=== PATIENT | male | born 1960 | race Caucasian/White ===

== ENCOUNTER 2017-01-02 20:12 | Emergency (ER) | payer MEDICARE, MEDICAID ==
--- NOTE | 2017-01-02 21:06 | RAD ---
INDICATION: Head injury. COMPARISON: Comparison is made with a prior CT of the brain from December 27, 2015. TECHNIQUE: Contiguous axial sections of the brain were obtained from the skull base to the vertex without contrast. FINDINGS: The ventricles, cisterns and sulci are enlarged consistent with diffuse atrophy. No significant focal abnormality or mass effect is seen. There is no evidence for hemorrhage. There is soft tissue swelling present in the scalp posterior to the left parietal bone. No fracture is seen. The visualized portion of the paranasal sinuses and mastoid air cells appear clear. IMPRESSION: NO EVIDENCE FOR ACUTE INTRACRANIAL ABNORMALITY.
--- NOTE | 2017-01-02 21:17 | RAD ---
INDICATION: Head injury. COMPARISON: Comparison is made with a prior CT of the cervical spine from December 27, 2015. TECHNIQUE: Contiguous axial sections were obtained from the skull base through the T1 vertebra. Images were reconstructed in the sagittal and coronal planes. FINDINGS: The vertebra are in normal alignment. No prevertebral soft tissue swelling or fracture is seen. At the C5-C6 level there is [id number] posterior uncinate process spurring associated with a broad-based disc bulge which causes mild spinal canal narrowing. There is mild bilateral neural foraminal narrowing. At the C6-C7 level there is moderate posterior uncinate process spurring causing mild to moderate spinal canal narrowing. IMPRESSION: 1. NO EVIDENCE FOR FRACTURE OR SUBLUXATION. 2. MODERATE CERVICAL SPONDYLOSIS AT THE C5-C6 AND C6-C7 LEVELS.
--- NOTE | 2017-01-02 22:44 | ED ---
Jennifer Ross Erika, scribed for Derrick Michelle MD on 01/02/17 at 2109 . Head Injury - HPI Summary HPI Summary: Patient is a 56-year-old male presenting to the ED with a CC of head injury. 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 Today, he fell from the wheelchair and hit his posterior head. [facility] staff reports there was no LOC. He reports he was dizzy after hitting his head, but this has resolved. He states headache has been improving. EMS does note swelling to the posterior head as well with bleeding. Patient denies neck and extremity pain. Hx borderline MR, CVA. - History Of Current Complaint Chief Complaint: EDHeadInjury Stated Complaint: FALL/HEAD LAC Time Seen by Provider: 01/02/17 20:19 Hx Obtained From: Patient, Medical Records Mechanism Of Injury: Fall From Height Of: - in a wheelchair Onset/Duration: Started Hours Ago, Traumatic, Still Present Pain Intensity: 0 Pain Scale Used: 0-10 Numeric Location of Head Injury: Occipital Associated Signs And Symptoms: Swelling - occiput, Other: - dizziness after the fall - Allergies/Home Medications Allergies/Adverse Reactions: Allergies Allergy/AdvReac Type Severity Reaction Status Date / Time Clindamycin Allergy Intermediate Unknown Verified 06/04/16 12:26 Reaction Details Penicillins Allergy Unknown Verified 06/04/16 12:26 Reaction Details PMH/Surg Hx/FS Hx/Imm Hx Endocrine/Hematology History: Reports: Hx Anticoagulant Therapy, Hx Diabetes Denies: Hx Thyroid Disease Cardiovascular History: Reports: Hx Coronary Artery Disease, Hx Hypercholesterolemia, Hx Hypertension, Other Cardiovascular Problems/Disorders - HYPERTENSION/CAD Denies: Hx Congestive Heart Failure, Hx Pacemaker/ICD Respiratory History: Denies: Hx Asthma, Hx Chronic Obstructive Pulmonary Disease (COPD), Other Respiratory Problems/Disorders - DENIES GI History: Reports: Hx Gastroesophageal Reflux Disease History: Denies: Hx Renal Disease Musculoskeletal History: Reports: Hx Back Problems Neurological History: Denies: Hx Dementia, Hx Seizures Psychiatric History: Reports: Hx Anxiety, Hx Depression, Hx of Violent Episodes Against Others Denies: Hx Panic Disorder, Hx Substance Abuse - Cancer History Cancer Type, Location and Year: COLON - Surgical History Surgery Procedure, Year, and Place: pt declared colon cancer and something on heart, appears to have port scar, dates are unclear, denies anything other than that Infectious Disease History: Denies: Hx Hepatitis, Hx Human Immunodeficiency Virus (HIV), Traveled Outside the [place] in Last 30 Days - Family History Known Family History: Positive: Respiratory Disease - pneumonia - Social History Lives: [facility] Alcohol Use: None Substance Use Type: Reports: None Hx Tobacco Use: Yes Smoking Status (MU): Former Smoker Review of Systems Musculoskeletal: Other - Paraplegic Negative: Arthralgia, Myalgia Skin: Other - swelling to posterior head with bleeding Neurological: Other - dizziness Positive: Headache All Other Systems Reviewed And Are Negative: Yes Physical Exam Triage Information Reviewed: Yes Vital Signs On Initial Exam: Initial Vitals Temp Pulse Resp BP Pulse Ox 98.4 F 91 14 172/80 95 01/02/17 20:14 01/02/17 20:14 01/02/17 20:14 01/02/17 20:14 01/02/17 20:14 Vital Signs Reviewed: Yes Appearance: Positive: Well-Appearing, No Pain Distress Skin: Positive: Warm, Skin Color Reflects Adequate Perfusion, Dry Head/Face: Positive: Other - Occiput swelling with some blood - appears to be a contusion Eyes: Positive: EOMI, JACKIE - 4 mm and reactive ENT: Positive: Normal ENT inspection, TMs normal Neck: Positive: Supple, Nontender Respiratory/Lung Sounds: Positive: Clear to Auscultation, Breath Sounds Present Cardiovascular: Positive: RRR Abdomen Description: Positive: Nontender, Soft Bowel Sounds: Positive: Present Musculoskeletal: Positive: Other - Movements of arms classically consistent with cerebellar ataxia. Pt does not move legs Neurological: Positive: Alert, Oriented to Person Place, Time, Other - Movements of arms classically consistent with cerebellar ataxia. Pt does not move legs Psychiatric: Positive: Affect/Mood Appropriate - [place] Coma Scale Best Eye Response: 4 - Spontaneous Best Motor Response: 6 - Obeys Commands Best Verbal Response: 5 - Oriented [place] Coma Scale Comments: Because of the cerebellar ataxia, it is difficult to determine if there is any new neurological deficit, so Head CT ordered. Diagnostics - Vital Signs Vital Signs Temp Pulse Resp BP Pulse Ox 01/02/17 20:14 98.4 F 91 14 172/80 95 - Laboratory Lab Statement: Any lab studies that have been ordered have been reviewed, and results considered in the medical decision making process. - CT Brain CT CT Interpretation Completed By: Radiologist - IMPRESSION: NO EVIDENCE FOR ACUTE INTRACRANIAL ABNORMALITY. CT C Spine CT Interpretation Completed By: Radiologist - IMPRESSION: 1. NO EVIDENCE FOR FRACTURE OR SUBLUXATION. 2. MODERATE CERVICAL SPONDYLOSIS AT THE C5-C6 AND C6- C7 LEVELS. Re-Evaluation - Re-Evaluation First Eval Re-Evaluation Time: 22:41 Change: Improved Comment: Discussed CT results with patient. Patient would like to be discharged Head Injury Course/Dx Course Of Treatment: NO CRITICAL CARE TIME Assessment/Plan: DISCUSSED RESULTS WITH PATIENT. WELL IN ED. DISCHARGE HOME STABLE. - Diagnoses Provider Diagnoses: Head injury, Scalp abrasion Discharge - Discharge Plan Condition: Stable Disposition: HOME Patient Education Materials: Head Injury (ED), Abrasion (ED) Referrals: Néstor Mitchell MD [Primary Care Provider] - Additional Instructions: FOLLOW UP WITH YOUR DOCTOR. RETURN TO THE EMERGENCY DEPARTMENT FOR ANY WORSENING OF YOUR CONDITION OR QUESTIONS OR CONCERNS. The documentation as recorded by the Jennifer pedroza Erika accurately reflects the service I personally performed and the decisions made by me, Derrick Michelle MD.
[2017-01-03 02:09] VITALS: BP 170/82
== END 2017-01-03 02:00 | disposition home or self-care (01) ==
LOC: ED 20:12
DX: S09.90XA Unspecified injury of head, initial encounter (principal); S00.01XA Abrasion of scalp, initial encounter; R51 Headache; R42 Dizziness and giddiness; Z87.891 Personal history of nicotine dependence; Y93.9 Activity, unspecified; Y92.9 Unspecified place or not applicable; Y99.9 Unspecified external cause status; W05.0XXA Fall from non-moving wheelchair, initial encounter
CPT/HCPCS: 70450; 72125; 99283

== ENCOUNTER 2017-07-05 22:25 | Emergency (ER) | payer MEDICARE, MEDICAID ==
[2017-07-05] MEDS ORDERED: NS 0.9% 1000 ML* 1,000 ML IV ONE (23:06)
[2017-07-05] MEDS ORDERED: Ondansetron INJ* 2 MG/ML VIAL IV ONE (23:06)
[2017-07-06 00:15] LABS: ALT 6 U/L (7-52); AST 11 U/L (13-39); Albumin 3.5 g/dL (3.2-5.2); Alkaline Phosphatase 68 U/L (34-104); Anion Gap 6 mmol/L (2-11); BUN/Creatinine Ratio 16.9 (8-20); Blood Urea Nitrogen 25 mg/dL (6-24); CO2 Carbon Dioxide 25 mmol/L (22-32); Calcium 8.8 mg/dL (8.6-10.3); Chloride 101 mmol/L (101-111); EGFR African American 62.8 (>60); EGFR Non-African American 48.8 (>60); Globulin 3.3 g/dL (2-4); Glucose 119 mg/dL (70-100); Lipase < 10 U/L (11.0-82.0); Potassium 4.4 mmol/L (3.5-5.0); Sodium 132 mmol/L (133-145); Total Protein 6.8 g/dL (6.4-8.9)
[2017-07-06 00:16] LABS: Troponin I 0.03 ng/mL (<0.04)
[2017-07-06 00:48] LABS: Hematocrit 34 % (42-52); Hemoglobin 11.5 g/dl (14.0-18.0); Mean Corpuscular HGB Conc 34 g/dl (31-36); Mean Corpuscular Hemoglobin 27 pg (27-31); Mean Corpuscular Volume 79 fL (80-94); Mean Platelet Volume 6 um3 (7.4-10.4); Red Blood Count 4.28 10^6/ul (4.0-5.4); Red Cell Distribution Width 17 % (10.5-15); White Blood Count 8.6 10^3/ul (3.5-10.8)
[2017-07-06] MEDS ORDERED: Iodixanol* (CONTRAST) 320 MG/ML 100 ML SDV IV ONE (01:40)
[2017-07-06 04:42] LABS: Urine Bacteria Absent (Absent); Urine Bilirubin Negative (Negative); Urine Glucose Negative (Negative); Urine Nitrite Negative (Negative)
--- NOTE | 2017-07-06 05:59 | ED ---
Abib Ross Abhishek, scribed for Shailesh Benitez on 07/06/17 at 0445 . Neurological HPI - HPI Summary HPI Summary: This patient is a 56 year old M BIBA with a chief complaint of CVA since few hours ago. The CC is described as constant. The patient rates the pain 8/10 in severity. Symptoms aggravated by nothing. Symptoms alleviated by nothing. Pt prior to ED physician stated yesterday he began feeling nauseated and vomited 3 times, states vomited once today. Patient reports right lower abd pain, vomiting, nausea. Patient denies CP. SHx negative smoking. - History of Current Complaint Chief Complaint: EDAbdPain Stated Complaint: ABD PAIN Time Seen by Provider: 07/05/17 22:46 Pain Intensity: 8 - Allergy/Home Medications Allergies/Adverse Reactions: Allergies Allergy/AdvReac Type Severity Reaction Status Date / Time Clindamycin Allergy Intermediate Unknown Verified 06/04/16 12:26 Reaction Details Penicillins Allergy Unknown Verified 06/04/16 12:26 Reaction Details PMH/Surg Hx/FS Hx/Imm Hx Endocrine/Hematology History: Reports: Hx Anticoagulant Therapy, Hx Diabetes Denies: Hx Thyroid Disease Cardiovascular History: Reports: Hx Coronary Artery Disease, Hx Hypercholesterolemia, Hx Hypertension, Other Cardiovascular Problems/Disorders - HYPERTENSION/CAD Denies: Hx Congestive Heart Failure, Hx Pacemaker/ICD Respiratory History: Denies: Hx Asthma, Hx Chronic Obstructive Pulmonary Disease (COPD), Other Respiratory Problems/Disorders - DENIES GI History: Reports: Hx Gastroesophageal Reflux Disease History: Denies: Hx Dialysis, Hx Renal Disease Musculoskeletal History: Reports: Hx Back Problems Neurological History: Denies: Hx Dementia, Hx Seizures Psychiatric History: Reports: Hx Anxiety, Hx Depression, Hx of Violent Episodes Against Others Denies: Hx Panic Disorder, Hx Substance Abuse - Cancer History Cancer Type, Location and Year: COLON - Surgical History Surgery Procedure, Year, and Place: pt declared colon cancer and something on heart, appears to have port scar, dates are unclear, denies anything other than that Infectious Disease History: No Infectious Disease History: Denies: Hx Hepatitis, Hx Human Immunodeficiency Virus (HIV), Traveled Outside the [place] in Last 30 Days - Family History Known Family History: Positive: Respiratory Disease - pneumonia - Social History Alcohol Use: None Substance Use Type: Reports: None Hx Tobacco Use: Yes Smoking Status (MU): Former Smoker Review of Systems Constitutional: Negative Eyes: Negative ENT: Negative Negative: Chest Pain Respiratory: Negative Positive: Abdominal Pain - right lower abd pain, Vomiting - 3 times, Nausea Genitourinary: Negative Musculoskeletal: Negative Skin: Negative Neurological: Negative Psychological: Normal All Other Systems Reviewed And Are Negative: Yes Physical Exam - Summary Physical Exam Summary: Appearance: Well appearing, no pain distress Skin: warm, dry, reflects adequate perfusion Head/face: normal Eyes: EOMI, JACKIE ENT: Dry mucous membranes, Neck: supple, nontender Respiratory: CTA, breath sounds present Cardiovascular: RRR, pulses symmetrical Abdomen: Diffuse tenderness abd Bowel: present Musculoskeletal: Extremities contract Neuro: paraplegic Triage Information Reviewed: Yes Vital Signs On Initial Exam: Initial Vitals BP 148/75 07/05/17 22:33 Vital Signs Reviewed: Yes - Bear Coma Scale Coma Scale Total: 15 Diagnostics - Vital Signs Vital Signs Temp Pulse Resp BP Pulse Ox 07/06/17 04:01 75 95 07/06/17 04:00 172/77 07/06/17 03:58 67 93 07/06/17 03:30 71 173/72 89 07/06/17 03:27 74 157/67 97 07/06/17 03:00 16 159/135 07/06/17 02:56 65 21 149/80 95 07/06/17 02:12 75 22 96 07/06/17 01:30 22 123/53 07/06/17 01:00 19 140/62 07/06/17 00:30 22 149/69 07/06/17 00:01 66 23 155/74 96 07/06/17 00:00 69 22 97 07/05/17 23:30 69 17 159/70 96 07/05/17 23:00 72 19 155/82 96 07/05/17 22:38 99.6 F 72 13 148/75 97 07/05/17 22:35 74 17 97 07/05/17 22:33 148/75 - Laboratory Lab Results: Lab Results 07/05/17 07/05/17 07/05/17 Range/Units 23:46 23:46 23:46 WBC 8.6 (3.5-10.8) 10^3/ul RBC 4.28 (4.0-5.4) 10^6/ul Hgb 11.5 L (14.0-18.0) g/dl Hct 34 L (42-52) % MCV 79 L (80-94) fL MCH 27 (27-31) pg MCHC 34 (31-36) g/dl RDW 17 H (10.5-15) % Plt Count 152 (150-450) 10^3/ul MPV 6 L (7.4-10.4) um3 Neut % (Auto) 84.3 H (38-83) % Lymph % (Auto) 7.6 L (25-47) % [place] % (Auto) 7.0 (1-9) % Eos % (Auto) 0.6 (0-6) % Baso % (Auto) 0.5 (0-2) % Absolute Neuts (auto) 7.2 (1.5-7.7) 10^3/ul Absolute Lymphs (auto) 0.6 L (1.0-4.8) 10^3/ul Absolute Monos (auto) 0.6 (0-0.8) 10^3/ul Absolute Eos (auto) 0.1 (0-0.6) 10^3/ul Absolute Basos (auto) 0 (0-0.2) 10^3/ul Absolute Nucleated RBC 0 10^3/ul Nucleated RBC % 0 INR (Anticoag Therapy) 1.01 (0.89-1.11) APTT 31.9 (26.0-36.3) seconds Sodium 132 L (133-145) mmol/L Potassium 4.4 (3.5-5.0) mmol/L Chloride 101 (101-111) mmol/L Carbon Dioxide 25 (22-32) mmol/L Anion Gap 6 (2-11) mmol/L BUN 25 H (6-24) mg/dL Creatinine 1.48 H (0.67-1.17) mg/dL Est GFR ( Amer) 62.8 (>60) Est GFR (Non-Af Amer) 48.8 (>60) BUN/Creatinine Ratio 16.9 (8-20) Glucose 119 H (70-100) mg/dL Lactic Acid (0.5-2.0) mmol/L Calcium 8.8 (8.6-10.3) mg/dL Total Bilirubin 0.50 (0.2-1.0) mg/dL AST 11 L (13-39) U/L ALT 6 L (7-52) U/L Alkaline Phosphatase 68 (34-104) U/L Troponin I 0.03 (<0.04) ng/mL Total Protein 6.8 (6.4-8.9) g/dL Albumin 3.5 (3.2-5.2) g/dL Globulin 3.3 (2-4) g/dL Albumin/Globulin Ratio 1.1 (1-3) Lipase < 10 L (11.0-82.0) U/L 07/05/17 Range/Units 23:46 WBC (3.5-10.8) 10^3/ul RBC (4.0-5.4) 10^6/ul Hgb (14.0-18.0) g/dl Hct (42-52) % MCV (80-94) fL MCH (27-31) pg MCHC (31-36) g/dl RDW (10.5-15) % Plt Count (150-450) 10^3/ul MPV (7.4-10.4) um3 Neut % (Auto) (38-83) % Lymph % (Auto) (25-47) % [place] % (Auto) (1-9) % Eos % (Auto) (0-6) % Baso % (Auto) (0-2) % Absolute Neuts (auto) (1.5-7.7) 10^3/ul Absolute Lymphs (auto) (1.0-4.8) 10^3/ul Absolute Monos (auto) (0-0.8) 10^3/ul Absolute Eos (auto) (0-0.6) 10^3/ul Absolute Basos (auto) (0-0.2) 10^3/ul Absolute Nucleated RBC 10^3/ul Nucleated RBC % INR (Anticoag Therapy) (0.89-1.11) APTT (26.0-36.3) seconds Sodium (133-145) mmol/L Potassium (3.5-5.0) mmol/L Chloride (101-111) mmol/L Carbon Dioxide (22-32) mmol/L Anion Gap (2-11) mmol/L BUN (6-24) mg/dL Creatinine (0.67-1.17) mg/dL Est GFR ( Amer) (>60) Est GFR (Non-Af Amer) (>60) BUN/Creatinine Ratio (8-20) Glucose (70-100) mg/dL Lactic Acid 1.4 (0.5-2.0) mmol/L Calcium (8.6-10.3) mg/dL Total Bilirubin (0.2-1.0) mg/dL AST (13-39) U/L ALT (7-52) U/L Alkaline Phosphatase (34-104) U/L Troponin I (<0.04) ng/mL Total Protein (6.4-8.9) g/dL Albumin (3.2-5.2) g/dL Globulin (2-4) g/dL Albumin/Globulin Ratio (1-3) Lipase (11.0-82.0) U/L Result Diagrams: 07/05/17 23:46 07/05/17 23:46 Lab Statement: Any lab studies that have been ordered have been reviewed, and results considered in the medical decision making process. - Radiology Chest X-ray Radiology Interpretation Completed By: ED Physician - CXR reveals negative findings - CT CT A/P CT Interpretation Completed By: Radiologist - CT A/P reveals Obstructive uropathy of the left. Right renal atrophy. Correlation with renal function is recommended. Splenomegaly possibly related to inflammation. Correlation with history and exam is recommended. ED physician has reviewed this radiology report and agrees. - EKG 3107 EKG Interpretation: An EKG reveals sinus rhythm with LBBB Course/Dx - Course Course Of Treatment: This patient is a 56 year old M presenting to [facility] with a chief complaint of CVA since few hours ago. Patient reports abd pain, vomiting, nausea. Patient denies CP. An EKG reveals sinus rhythm with LBBB. CXR reveals negative. CT A/P reveals Obstructive uropathy of the left. Right renal atrophy. Correlation with renal function is recommended. Splenomegaly possibly related to inflammation. Correlation with history and exam is recommended. We discussed patient care with Dr. Stevens and Dr. Segal and they recommended for transfer. Patient [facility] be [facility]. Pt is agreeable with this plan. - Differential Dx Differential Diagnoses Neuro: Positive: Other - diverticulitis/uti/appendicitis/ colitis - Diagnoses Provider Diagnoses: Paraplegia, Neoplasm of colon, malignant, Renal calculus Discharge - Discharge Plan Condition: Stable Disposition: TRANS HIGHER LVL OF CARE FAC The documentation as recorded by the Abbi pedroza Abhishek accurately reflects the service I personally performed and the decisions made by , Shailesh Benitez.
--- NOTE | 2017-07-06 07:41 | RAD ---
HISTORY: Vomiting COMPARISONS: May 28 VIEWS: 1: frontal portable view of the chest at 11:27 PM FINDINGS: LINES AND TUBES: None. CARDIOMEDIASTINAL SILHOUETTE: The cardiomediastinal silhouette is normal for portable technique. PLEURA: The costophrenic angles are sharp. No pleural abnormalities are noted. LUNG PARENCHYMA: The lungs are clear. ABDOMEN: The upper abdomen is clear. There is no subphrenic gas. BONES AND SOFT TISSUES: No bone or soft tissue abnormalities are noted. IMPRESSION: NO ACTIVE CARDIOPULMONARY DISEASE.
--- NOTE | 2017-07-06 08:04 | RAD ---
CLINICAL HISTORY: Abdominal pain, right and left quadrant tenderness COMPARISON: None TECHNIQUE: Multiple contiguous axial CT scans were obtained of the abdomen and pelvis after the administration of intravenous contrast. Coronal and sagittal multiplanar reformations are submitted for review. Oral contrast was not administered. Delayed images were obtained through the abdomen and pelvis. FINDINGS: LUNG BASES: The lung bases are clear. LIVER: The liver is homogeneously enlarged measuring 22 cm. BILE DUCTS: There is no intrahepatic or extrahepatic biliary dilatation. GALLBLADDER: The gallbladder is normal, without pericholecystic inflammatory change. PANCREAS: The pancreas is normal, without mass or ductal dilatation. SPLEEN: The spleen is homogeneously enlarged measuring 19 centers. UPPER GI TRACT: Evaluation of the gastrointestinal tract is limited by incomplete gastric distention. The upper GI tract is unremarkable. SMALL BOWEL AND MESENTERY: The small bowel is normal in contour, course, and caliber. There is no obstruction or dilatation. COLON: The colon is normal in contour, course, caliber. There is no pericolonic inflammatory change. ADRENALS: Normal bilaterally. KIDNEYS: The right kidney is atrophic. There is edema of the left kidney with perinephric stranding. There are multiple calculi of the left kidney measuring 1.3 cm left UPJ stone. There is mild pelviectasis. BLADDER: The bladder is smooth in contour. PELVIC ORGANS: The pelvic organs are not visualized. AORTA: The aorta is normal. IVC: Unremarkable LYMPH NODES: There is no lymphadenopathy by size criteria. ABDOMINAL WALL: There is no evidence for abdominal wall hernia. BONES AND SOFT TISSUES: There are mild diffuse degenerative changes. OTHER: None IMPRESSION: 1. HEPATOSPLENOMEGALY. 2. LEFT-SIDED NEPHROLITHIASIS INCLUDING A 1.3 CM LEFT UPJ STONE WITH LEFT-SIDED HYDRONEPHROSIS. 3. ATROPHIC RIGHT KIDNEY.
[2017-07-06 11:50] VITALS: BP 138/54
--- NOTE | 2017-07-09 09:03 | ED ---
I, Héctor Posey, scribed for Patrick Falcon MD on 07/06/17 at 0952 . Progress - Progress Note Progress Note: Pt signed out by Dr. Benitez pending transfer. Spoke with transfer center at [facility] at 09:40. I spoke to the school secretary (Jose ) at [facility] who reports the pt cannot be transferred because there are no beds even though the pt accepted for transfer earlier. The school secretary doesnt know for how long before a bed will appear for the pt. I asked if the pt can be transferred to the ER, however he reports the ER is having holds for about 8-9 patients. Therefore I insisted to speak with an ER attending and spoke with Dr. Barakat, and confirmed that there are a lot of holds but he cannot refuse the transfer and to make the pt aware that he might be waiting in the ED a long time before he gets a bed. Then I spoke with the supervisor gas meter repair, who reports the pt can be waiting in the ED up to 3 days before a bed. At this point I spoke with the pt, who states that he is more comfortable with pain medications. Pt has slurred speech but secondary to CVA. I asked him if the pt will be more comfortable going to another facility other than [facility], and the pt reports he wants to go to the closest facility, which is [facility]. The pt understands that he might be in a hallway waiting a couple of hours waiting to see a urologist or to have a bed. At 10:15 [facility] transfer center called back. After speaking with charge nurse, [facility] reports that they have a bed available and the pt can be transferred. At this point the pt is still alert and oriented, and hemodynamically stable. The pt does not have fever. He is pain free at this point. Course/Dx - Course Course Of Treatment: This patient is a 56 year old M presenting to [facility] with a chief complaint of CVA since few hours ago. Patient reports abd pain, vomiting, nausea. Patient denies CP. An EKG reveals sinus rhythm with LBBB. CXR reveals negative. CT A/P reveals Obstructive uropathy of the left. Right renal atrophy. Correlation with renal function is recommended. Splenomegaly possibly related to inflammation. Correlation with history and exam is recommended. We discussed patient care with Dr. Stevens and Dr. Segal and they recommended for transfer. Patient will be transferred to [facility]. Pt is agreeable with this plan. - Diagnoses Provider Diagnoses: Paraplegia, Neoplasm of colon, malignant, Renal calculus The documentation as recorded by the Taty pedroza Edward accurately reflects the service I personally performed and the decisions made by , Patrick Falcon MD.
== END 2017-07-06 11:19 | disposition short-term general hospital (02) ==
LOC: ED 22:25
DX: G82.20 Paraplegia, unspecified (principal); C18.9 Malignant neoplasm of colon, unspecified; N20.0 Calculus of kidney; R10.31 Right lower quadrant pain; R11.2 Nausea with vomiting, unspecified; Z87.891 Personal history of nicotine dependence
CPT/HCPCS: 36415; 71010; 74177; 80053; 81003; 81015; 83605; 83690; 84484; 85025; 85610; 85730; 93005; 96374; 99285; J2405; Q9967

== ENCOUNTER 2017-12-06 10:45 | Emergency (ER) | payer MEDICARE, MEDICAID ==
[2017-12-06] MEDS ORDERED: Azithromycin IV(*) 500 MG in NS 0.9% 250 ML* 250 ML IVPB ONE (11:25)
[2017-12-06] MEDS ORDERED: NS 0.9% 1000 ML*IV.FLUID IV ONE (11:25)
[2017-12-06] MEDS ORDERED: cefTRIAXone(*) 1 GM in NS 0.9% 50 ML* 50 ML IVPB ONE (11:25)
[2017-12-06] MEDS ORDERED: Albuterol/Ipratropium NEB.SOL* Albuterol 2.5 MG/Ipratropium 0.5 MG 3 ML INH ONE (11:51)
[2017-12-06] MEDS ORDERED: Albuterol/Ipratropium NEB.SOL* Albuterol 2.5 MG/Ipratropium 0.5 MG 3 ML ONE (11:53)
[2017-12-06] MEDS ORDERED: NS 0.9% 50 ML* 50 ML ONE (11:54)
[2017-12-06 12:19] LABS: ABS Basophils 0 10^3/ul (0-0.2); ABS Eosinophils 0 10^3/ul (0-0.6); ABS Lymphocytes 0.2 10^3/ul (1.0-4.8); ABS Monocytes 0.3 10^3/ul (0-0.8); ABS Neutrophils 4.1 10^3/ul (1.5-7.7); ABS Nucleated RBC 0 10^3/ul; Eosinophil % 0 % (0-6); Hematocrit 29 % (42-52); Hemoglobin 9.7 g/dl (14.0-18.0); Lymphocyte % 3.8 % (25-47); Mean Corpuscular HGB Conc 33 g/dl (31-36); Mean Corpuscular Hemoglobin 27 pg (27-31); Mean Corpuscular Volume 82 fL (80-94); Mean Platelet Volume 8.3 um3 (7.4-10.4); Nucleated Red Blood Cells % 0; Platelet Count 103 10^3/ul (150-450); Red Blood Count 3.56 10^6/ul (4.0-5.4); Red Cell Distribution Width 16 % (10.5-15); White Blood Count 4.5 10^3/ul (3.5-10.8)
--- NOTE | 2017-12-06 12:20 | RAD ---
HISTORY: Shortness of breath, sepsis COMPARISONS: July 05, 2017 VIEWS: 1: frontal portable view of the chest at 12:02 PM FINDINGS: LINES AND TUBES: None. CARDIOMEDIASTINAL SILHOUETTE: The cardiomediastinal silhouette is normal for portable technique. PLEURA: The costophrenic angles are sharp. No pleural abnormalities are noted. LUNG PARENCHYMA: The lungs are clear. ABDOMEN: The upper abdomen is clear. There is no subphrenic gas. BONES AND SOFT TISSUES: No bone or soft tissue abnormalities are noted. IMPRESSION: NO ACTIVE CARDIOPULMONARY DISEASE.
[2017-12-06 12:30] LABS: INR 1.23 (0.77-1.02)
[2017-12-06 12:40] LABS: EGFR Non-African American 24.3 (>60)
[2017-12-06 12:56] LABS: Urine Appearance Cloudy; Urine Blood 2+ (Negative); Urine Color Yellow; Urine Ketones Negative (Negative); Urine Protein 2+(100 mg/dL) (Negative); Urine Specific Gravity 1.013 (1.010-1.030); Urine Urobilinogen Negative (Negative)
--- NOTE | 2017-12-06 13:44 | RAD ---
HISTORY: Evaluate ureteral stent. No other history is provided. COMPARISONS: CT dated July 06, 2017 VIEWS: Frontal views of the abdomen. FINDINGS: BOWEL: There is a nonspecific bowel gas pattern, with nondilated small bowel gas noted. CALCULI: There is a 0.8 cm calculus of the upper pole of the right kidney.. 2 left-sided ureteral stents are noted. The proximal portions of the stents are located in the expected location of the left renal pelvis and within the upper pole calyces. BONES AND SOFT TISSUES: There are advanced degenerative changes of the hips. OTHER FINDINGS: The lung bases are clear. There is no subphrenic gas. IMPRESSION: 2 LEFT-SIDED URETERAL STENTS. LEFT NEPHROLITHIASIS.
[2017-12-06] MEDS: KCL 10 MEQ/50 ML IVPREMIX* 10 MEQ/50 ML BAG IV SCH ×2 (14:00→14:33)
[2017-12-06] MEDS ORDERED: Ciprofloxacin 400MG IVPREMIX(* 400 MG/200 ML BAG IVPB ONE (14:59)
[2017-12-06] MEDS ORDERED: Potassium Chloride IV* 20 MEQ in NS 0.9% 100 ML* 100 ML IVPB ONE (15:00)
--- NOTE | 2017-12-06 15:53 | ED ---
Spencer Ross Stephanie, scribed for Rachell Lazaro MD on 12/06/17 at 1200 . Sepsis HPI - HPI Summary HPI Summary: The pt is a 57 y/o M BIBA to the ED with c/o fever that began on 12/04/17 at 08: 00. The pt is a paraplegic resident of [facility]. Per nursing notes the pt has hx spina bifida. HPI limited due to altered mental status. [facility] records state that pt is "lethargic" and that he has been on IV fluids , not antibiotics for the past two days at the snf. [facility] state they are concerned about pneumonia as pt has had a congested cough with fever. There is also a note from [facility] that pt has an encrusted stent, treated by [facility]. Pt did not have a sanchez on arrival to ED, and was incontinent of urine on arrival. Fever was not documented at triage. Pt has a mepelex dressing on his sacrum changed 12/05/17, presumed sacral decubitus ulcer. Per old records, pt has hx MRSA urosepsis. Pt is a DNR, MOLST form is with him. - History of Current Complaint Chief Complaint: EDFever Time Seen by Provider: 12/06/17 11:23 Stated Complaint: AMS Hx Obtained From: Medical Records, Other: - notes from [facility] Hx From Patient Unobtainable Due To: Altered Mental Status Onset/Duration: Started Days Ago - 2, Still Present Timing: Constant Onset Severity: Moderate Current Severity: Moderate Pain Intensity: 0 Pain Scale Used: 0-10 Numeric Aggravating Symptom(s): Nothing Alleviating Factor(s): Nothing Associated Signs & Symptoms: Cough, Other - has ureteral stent - Allergy/Home Medications Allergies/Adverse Reactions: Allergies Allergy/AdvReac Type Severity Reaction Status Date / Time clindamycin Allergy Intermediate Unknown Verified 12/06/17 12:05 Reaction Details Penicillins Allergy Intermediate Unknown Verified 12/06/17 12:05 Reaction Details Home Medications: Home Medications Acetaminophen SUPP* [Tylenol Supp*] 650 mg MA Q6H PRN 12/06/17 [History Confirmed 12/06/17] Acetaminophen [Acetaminophen Extra Strength] 1,000 mg PO BID 12/06/17 [History Confirmed 12/06/17] Acetaminophen [Acetaminophen Extra Strength] 1,000 mg PO Q4H PRN 12/06/17 [ History Confirmed 12/06/17] Cholecalciferol TAB* [Vitamin D TAB*] 50,000 unit PO MONTHLY 12/06/17 [History Confirmed 12/06/17] Cyanocobalamin INJ * [Vitamin B12 INJ *] 1,000 mcg IM MONTHLY 12/06/17 [History Confirmed 12/06/17] Ferrous Sulfate TAB* 325 mg PO DAILY 12/06/17 [History Confirmed 12/06/17] Glucagon* [Glucagen*] 1 mg IM ONCE PRN 12/06/17 [History Confirmed 12/06/17] HYDROcodone/ACETAMIN 5-325 MG* [[place] 5-325 TAB*] 1 tab PO Q8H PRN 12/06/17 [ History Confirmed 12/06/17] Insulin GLARGINE(*) [Lantus(*)] 20 units SUBCUT QPM 12/06/17 [History Confirmed 12/06/17] Lactase [Lactaid] 3,000 unit PO DAILY PRN 12/06/17 [History Confirmed 12/06/17] Leuprolide Acetate (NF) [Lupron Depot (NF)] 7.5 mg IM MONTHLY 12/06/17 [History Confirmed 12/06/17] Melatonin (NF) [Meladox] 3 mg PO DAILY 12/06/17 [History Confirmed 12/06/17] Metoprolol Succinate XL TAB* [Toprol XL TAB*] 25 mg PO QPM 12/06/17 [History Confirmed 12/06/17] PMH/Surg Hx/FS Hx/Imm Hx Endocrine/Hematology History: Reports: Hx Diabetes Denies: Hx Thyroid Disease Cardiovascular History: Reports: Hx Coronary Artery Disease, Hx Hypercholesterolemia, Hx Hypertension Denies: Hx Congestive Heart Failure, Hx Pacemaker/ICD Respiratory History: Denies: Hx Asthma, Hx Chronic Obstructive Pulmonary Disease (COPD), Other Respiratory Problems/Disorders GI History: Reports: Hx Gastroesophageal Reflux Disease History: Reports: Other Problems/Disorders - left ureteral stent, "encrusted", hx MRSA urosepsis Denies: Hx Dialysis Musculoskeletal History: Reports: Hx Back Problems Neurological History: Reports: Hx Transient Ischemic Attacks (TIA) Denies: Hx Dementia, Hx Seizures Psychiatric History: Reports: Hx Anxiety, Hx Depression, Hx of Violent Episodes Against Others Denies: Hx Panic Disorder, Hx Substance Abuse - Cancer History Cancer Type, Location and Year: COLON - Surgical History Surgery Procedure, Year, and Place: pt declared "colon cancer and something on heart", appears to have port scar (this was in chart prior to 12/06/17). ureteral stent, [facility]. RLQ abdominal scar Infectious Disease History: No Infectious Disease History: Denies: Hx Hepatitis, Hx Human Immunodeficiency Virus (HIV), Traveled Outside the [place] in Last 30 Days - Family History Known Family History: Positive: Respiratory Disease - pneumonia - Social History Occupation: Disabled Lives: At [facility] [employer] Alcohol Use: None Hx Substance Use: No Substance Use Type: Reports: None Hx Tobacco Use: Yes Smoking Status (MU): Former Smoker Review of Systems - ROS Summary Review of Systems Summary: ROS limited due to AMS. Positive: Fever Positive: Cough Gastrointestinal: Negative Positive: no symptoms reported Musculoskeletal: Negative Neurological: Negative Psychological: Normal All Other Systems Reviewed And Are Negative: No Physical Exam - Summary Physical Exam Summary: Appearance: Ill-appearing, moderate pain distress, Well-nourished, The pt is paraplegic, does move his arms some. Skin: Warm, color reflects adequate perfusion Head: Normal Head/Face inspection Eyes: Conjunctiva clear ENT: Dry mucous membranes, leathery appearing tongue, crusted dry secretions in mouth Neck: Supple, no nodes, no JVD. Respiratory: Diminished lung sounds, rales both bases, no respiratory distress at time of exam, but was tachypneic at triage, 32. Cardio: Tachycardic, No murmur, pulses normal, brisk capillary refill Abdomen: soft, nontender, large well-healed old 10 cm scar in RLQ, no masses, not distended Bowel sounds: present Musculoskeletal: Strength Intact/ ROM intact. No calf tenderness. No edema. Diffuse redness both buttocks, mepelex at the sacrum applied 12/05/17 not removed in this exam. Diffuse atrophy and dorsiflexion of feet. Brawny changes. Psychological: Normal GIGU: Normal uncircumcised male, nontender, no sanchez upon admission to ED Neuro: opens eyes to commands, moves arms, oriented to name and place, no focal deficit, chronic paraplegia of legs Triage Information Reviewed: Yes Vital Signs On Initial Exam: Initial Vitals Temp Pulse Resp BP Pulse Ox 97.3 F 111 34 154/74 94 12/06/17 10:45 12/06/17 10:45 12/06/17 10:45 12/06/17 10:45 12/06/17 10:45 Vital Signs Reviewed: Yes - [place] Coma Scale Best Eye Response: 3 - To Speech Best Motor Response: 6 - Obeys Commands Best Verbal Response: 4 - Confused Coma Scale Total: 13 Diagnostics - Vital Signs Vital Signs Temp Pulse Resp BP Pulse Ox 12/06/17 11:00 113 19 144/82 94 12/06/17 10:56 111 28 154/74 94 12/06/17 10:55 110 36 92 12/06/17 10:45 97.3 F 111 34 154/74 94 - Laboratory Lab Results: Lab Results 12/06/17 12/06/17 12/06/17 Range/Units 11:47 11:47 11:47 WBC (3.5-10.8) 10^3/ul RBC (4.0-5.4) 10^6/ul Hgb (14.0-18.0) g/dl Hct (42-52) % MCV (80-94) fL MCH (27-31) pg MCHC (31-36) g/dl RDW (10.5-15) % Plt Count (150-450) 10^3/ul MPV (7.4-10.4) um3 Neut % (Auto) (38-83) % Lymph % (Auto) (25-47) % [place] % (Auto) (0-7) % Eos % (Auto) (0-6) % Baso % (Auto) (0-2) % Absolute Neuts (auto) (1.5-7.7) 10^3/ul Absolute Lymphs (auto) (1.0-4.8) 10^3/ul Absolute Monos (auto) (0-0.8) 10^3/ul Absolute Eos (auto) (0-0.6) 10^3/ul Absolute Basos (auto) (0-0.2) 10^3/ul Absolute Nucleated RBC 10^3/ul Nucleated RBC % ESR (0-20) mm/Hr INR (Anticoag Therapy) 1.23 H (0.77-1.02) APTT 34.9 (26.0-36.3) seconds Sodium 145 (139-145) mmol/L Potassium 2.6 L* (3.5-5.0) mmol/L Chloride 114 H (101-111) mmol/L Carbon Dioxide 17 L (22-32) mmol/L Anion Gap 14 H (2-11) mmol/L BUN 53 H (6-24) mg/dL Creatinine 2.70 H (0.67-1.17) mg/dL Est GFR ( Amer) 31.3 (>60) Est GFR (Non-Af Amer) 24.3 (>60) BUN/Creatinine Ratio 19.6 (8-20) Glucose 190 H (70-100) mg/dL Lactic Acid (0.5-2.0) mmol/L Calcium 8.6 (8.6-10.3) mg/dL Total Bilirubin 0.40 (0.2-1.0) mg/dL AST 10 L (13-39) U/L ALT 5 L (7-52) U/L Alkaline Phosphatase 51 (34-104) U/L Total Creatine Kinase 42 (10-223) U/L Troponin I 0.09 H* (<0.04) ng/mL C-Reactive Protein 260.54 H (< 5.00) mg/L B-Natriuretic Peptide 152 H ( - 100) pg/mL Total Protein 7.2 (6.4-8.9) g/dL Albumin 3.1 L (3.2-5.2) g/dL Globulin 4.1 H (2-4) g/dL Albumin/Globulin Ratio 0.8 L (1-3) Procalcitonin (<0.6) ng/mL Urine Color Urine Appearance Urine pH (5-9) Ur Specific [place] (1.010-1.030) Urine Protein (Negative) Urine Ketones (Negative) Urine Blood (Negative) Urine Nitrate (Negative) Urine Bilirubin (Negative) Urine Urobilinogen (Negative) Ur Leukocyte Esterase (Negative) Urine WBC (Auto) (Absent) Urine RBC (Auto) (Absent) Ur Squamous Epith Cells (Absent) Urine Bacteria (Absent) Urine Glucose (Negative) Influenza A (Rapid) (Negative) Influenza B (Rapid) (Negative) 12/06/17 12/06/17 12/06/17 Range/Units 11:47 11:47 11:47 WBC 4.5 (3.5-10.8) 10^3/ul RBC 3.56 L (4.0-5.4) 10^6/ul Hgb 9.7 L (14.0-18.0) g/dl Hct 29 L (42-52) % MCV 82 (80-94) fL MCH 27 (27-31) pg MCHC 33 (31-36) g/dl RDW 16 H (10.5-15) % Plt Count 103 L (150-450) 10^3/ul MPV 8.3 (7.4-10.4) um3 Neut % (Auto) 90.1 H (38-83) % Lymph % (Auto) 3.8 L (25-47) % [place] % (Auto) 5.9 (0-7) % Eos % (Auto) 0 (0-6) % Baso % (Auto) 0.2 (0-2) % Absolute Neuts (auto) 4.1 (1.5-7.7) 10^3/ul Absolute Lymphs (auto) 0.2 L (1.0-4.8) 10^3/ul Absolute Monos (auto) 0.3 (0-0.8) 10^3/ul Absolute Eos (auto) 0 (0-0.6) 10^3/ul Absolute Basos (auto) 0 (0-0.2) 10^3/ul Absolute Nucleated RBC 0 10^3/ul Nucleated RBC % 0 ESR 120 H (0-20) mm/Hr INR (Anticoag Therapy) (0.77-1.02) APTT (26.0-36.3) seconds Sodium (139-145) mmol/L Potassium (3.5-5.0) mmol/L Chloride (101-111) mmol/L Carbon Dioxide (22-32) mmol/L Anion Gap (2-11) mmol/L BUN (6-24) mg/dL Creatinine (0.67-1.17) mg/dL Est GFR ( Amer) (>60) Est GFR (Non-Af Amer) (>60) BUN/Creatinine Ratio (8-20) Glucose (70-100) mg/dL Lactic Acid 1.2 (0.5-2.0) mmol/L Calcium (8.6-10.3) mg/dL Total Bilirubin (0.2-1.0) mg/dL AST (13-39) U/L ALT (7-52) U/L Alkaline Phosphatase (34-104) U/L Total Creatine Kinase (10-223) U/L Troponin I (<0.04) ng/mL C-Reactive Protein (< 5.00) mg/L B-Natriuretic Peptide ( - 100) pg/mL Total Protein (6.4-8.9) g/dL Albumin (3.2-5.2) g/dL Globulin (2-4) g/dL Albumin/Globulin Ratio (1-3) Procalcitonin 13.4 H (<0.6) ng/mL Urine Color Urine Appearance Urine pH (5-9) Ur Specific [place] (1.010-1.030) Urine Protein (Negative) Urine Ketones (Negative) Urine Blood (Negative) Urine Nitrate (Negative) Urine Bilirubin (Negative) Urine Urobilinogen (Negative) Ur Leukocyte Esterase (Negative) Urine WBC (Auto) (Absent) Urine RBC (Auto) (Absent) Ur Squamous Epith Cells (Absent) Urine Bacteria (Absent) Urine Glucose (Negative) Influenza A (Rapid) (Negative) Influenza B (Rapid) (Negative) 12/06/17 12/06/17 Range/Units 12:36 12:39 WBC (3.5-10.8) 10^3/ul RBC (4.0-5.4) 10^6/ul Hgb (14.0-18.0) g/dl Hct (42-52) % MCV (80-94) fL MCH (27-31) pg MCHC (31-36) g/dl RDW (10.5-15) % Plt Count (150-450) 10^3/ul MPV (7.4-10.4) um3 Neut % (Auto) (38-83) % Lymph % (Auto) (25-47) % [place] % (Auto) (0-7) % Eos % (Auto) (0-6) % Baso % (Auto) (0-2) % Absolute Neuts (auto) (1.5-7.7) 10^3/ul Absolute Lymphs (auto) (1.0-4.8) 10^3/ul Absolute Monos (auto) (0-0.8) 10^3/ul Absolute Eos (auto) (0-0.6) 10^3/ul Absolute Basos (auto) (0-0.2) 10^3/ul Absolute Nucleated RBC 10^3/ul Nucleated RBC % ESR (0-20) mm/Hr INR (Anticoag Therapy) (0.77-1.02) APTT (26.0-36.3) seconds Sodium (139-145) mmol/L Potassium (3.5-5.0) mmol/L Chloride (101-111) mmol/L Carbon Dioxide (22-32) mmol/L Anion Gap (2-11) mmol/L BUN (6-24) mg/dL Creatinine (0.67-1.17) mg/dL Est GFR ( Amer) (>60) Est GFR (Non-Af Amer) (>60) BUN/Creatinine Ratio (8-20) Glucose (70-100) mg/dL Lactic Acid (0.5-2.0) mmol/L Calcium (8.6-10.3) mg/dL Total Bilirubin (0.2-1.0) mg/dL AST (13-39) U/L ALT (7-52) U/L Alkaline Phosphatase (34-104) U/L Total Creatine Kinase (10-223) U/L Troponin I (<0.04) ng/mL C-Reactive Protein (< 5.00) mg/L B-Natriuretic Peptide ( - 100) pg/mL Total Protein (6.4-8.9) g/dL Albumin (3.2-5.2) g/dL Globulin (2-4) g/dL Albumin/Globulin Ratio (1-3) Procalcitonin (<0.6) ng/mL Urine Color Yellow Urine Appearance Cloudy Urine pH 8.0 (5-9) Ur Specific [place] 1.013 (1.010-1.030) Urine Protein 2+(100 mg/dl) A (Negative) Urine Ketones Negative (Negative) Urine Blood 2+ A (Negative) Urine Nitrate Negative (Negative) Urine Bilirubin Negative (Negative) Urine Urobilinogen Negative (Negative) Ur Leukocyte Esterase 3+ A (Negative) Urine WBC (Auto) 3+(>20/hpf) A (Absent) Urine RBC (Auto) 2+(6-10/hpf) A (Absent) Ur Squamous Epith Cells Present A (Absent) Urine Bacteria Absent (Absent) Urine Glucose Negative (Negative) Influenza A (Rapid) Negative (Negative) Influenza B (Rapid) Negative (Negative) Result Diagrams: 12/06/17 11:47 12/06/17 11:47 Lab Statement: Any lab studies that have been ordered have been reviewed, and results considered in the medical decision making process. - Radiology CXR Xray Interpretation: No Acute Changes Radiology Interpretation Completed By: Radiologist - O ACTIVE CARDIOPULMONARY DISEASE. ED physician has reviewed this report. Abdomen XRay Xray Interpretation: Positive (See Comments) Radiology Interpretation Completed By: Radiologist - 2 LEFT-SIDED URETERAL STENTS. LEFT NEPHROLITHIASIS. ED physician has reviewed this report. - EKG 11:26 Cardiac Rate: Tachycardia EKG Rhythm: Sinus Tachycardia - 109 BPM EKG Interpretation: QTc prolonged(523),nml AVCT, prolonged IVCT,LBBB,prolonged QTC, L axis (12) EKG Comparison: No Significant Change - LBBB was present 07/05/17 Sepsis Re-assessment - Sepsis Re-Assessment First Eval Re-Evaluation Time: 13:04 - The pt is crying out. He is uncomfortable. respirations are not labored. He is making urine and sanchez is in place. Patient's Vitals Signs: Vital Signs Temp Pulse Resp BP Pulse Ox 12/06/17 12:57 100 12/06/17 12:55 30 12/06/17 12:04 102 30 96 12/06/17 12:02 103 25 96 12/06/17 12:00 105 28 161/61 98 12/06/17 11:49 103 34 158/67 95 12/06/17 11:44 103 33 167/74 94 12/06/17 11:30 149/73 12/06/17 11:25 94 12/06/17 11:00 113 19 144/82 94 12/06/17 10:56 111 28 154/74 94 12/06/17 10:55 110 36 92 12/06/17 10:45 97.3 F 111 34 154/74 94 Second Eval Re-Evaluation Time: 15:01 - ED physician informed the pt of plan of transfer. BP 158/60, 121 BPM, 98 O2 stat, 20. Patient's Vitals Signs: Vital Signs Temp Pulse Resp BP Pulse Ox 12/06/17 12:57 100 12/06/17 12:55 30 12/06/17 12:04 102 30 96 12/06/17 12:02 103 25 96 12/06/17 12:00 105 28 161/61 98 12/06/17 11:49 103 34 158/67 95 12/06/17 11:44 103 33 167/74 94 12/06/17 11:30 149/73 12/06/17 11:25 94 12/06/17 11:00 113 19 144/82 94 12/06/17 10:56 111 28 154/74 94 12/06/17 10:55 110 36 92 12/06/17 10:45 97.3 F 111 34 154/74 94 Course/Dx - Course Course Of Treatment: Sepsis order set and protocol initiated upon initial evaluation with suspected respiratory source. The pt has a ureteral stent. Pt incontinent of urine upon presentation. At 13:17, ED physician discussed the pt s case with Dr. Hardy. The pt has a ureteral stent. There is currently no urology coverage today at [facility]. The pt will need to be transferred. KUB shows a stent in the L kidney. At 14:25, Dr. Adam accepted the pt for transfer into [facility]. The pt was given azithromycin 500mg IV and ceftriaxone 1gram when it was suspected sepsis came from respiratory source. The pt was given Cipro 400 IV at 15:00 for possible sepsis due to UTI with results of the urine and confirmed ureteral stent in place. Pt with hypokalemia , 2.6 and EKG showing LBBB, unchanged since 07/05/17, replaced with 2 runs of KCL IV. Elevated troponin from baseline and abnormal, considered to be due to demand ischemia and elevated renal function, acute kidney injury. Urine output only 150cc after 30ml/kg of IV fluid given. US of kidneys not done after discussion with Dr. Adam. lactic acid 1.2, glucose 190, anion gap 14.; repeat at 15:45 is 170. wbc count only 4.5 with 90% neutrophils. Pt will be transferred for higher level of care for urology care that is not available at [facility] today, and will return pt to his urologists. - Differential Dx/Clinical Impression Provider Diagnosis: Sepsis due to urinary tract infection, Hypokalemia, LBBB (left bundle branch block), Acute kidney injury, Elevated troponin, Tachycardia, Decubitus ulcer, Paraplegia, Spina bifida, Poorly controlled diabetes mellitus - Provider Notifications Discussed Care Of Patient With: Prosper Hardy Time Discussed With Above Provider: 13:17 Instructed by Provider To: Transfer Reason For Transfer: Specialty available at [facility] but not nurse practitioner per diem. - Critical Care Time Critical Care Time: 30-74 min - 60 minutes Discharge - Sign-Out/Discharge Documenting (check all that apply): Discharge - Discharge Plan Condition: Stable Disposition: TRANS [facility] OF CARE FAC Referrals: Néstor Mitchell MD [Primary Care Provider] - - Billing Disposition and Condition Condition: STABLE Disposition: EMTALA The documentation as recorded by the Spencer pedroza Stephanie accurately reflects the service I personally performed and the decisions made by Tejas smart Barbara J, MD.
[2017-12-06] MEDS ORDERED: Morphine INJ* 4 MG/ML 1 ML SYRINGE (NEW SYRINGE VERSION) IV ONE (16:31)
[2017-12-06] MEDS ORDERED: Ondansetron INJ* 2 MG/ML VIAL IV ONE (16:31)
[2017-12-06] MEDS ORDERED: Morphine INJ* 10 MG/ML 1 ML CARPUJECT ONE (16:36)
[2017-12-06 17:05] VITALS: BP 154/78
--- NOTE | 2017-12-08 09:10 | ED ---
Progress - Progress Note Progress Note: Patient sputum culture reveals staph aureus. Patient was transferred to [facility]. Will fax results. [facility] clerk aware. Re-Evaluation - Re-Evaluation First Eval Re-Evaluation Time: 13:04 - The pt is crying out. He is uncomfortable. respirations are not labored. He is making urine and sanchez is in place. Second Eval Re-Evaluation Time: 15:01 - ED physician informed the pt of plan of transfer. BP 158/60, 121 BPM, 98 O2 stat, 20. Course/Dx - Course Course Of Treatment: Sepsis order set and protocol initiated upon initial evaluation with suspected respiratory source. The pt has a ureteral stent. Pt incontinent of urine upon presentation. At 13:17, ED physician discussed the pt s case with Dr. Hardy. The pt has a ureteral stent. There is currently no urology coverage today at [facility]. The pt will need to be transferred. KUB shows a stent in the L kidney. At 14:25, Dr. Adam accepted the pt for transfer into [facility]. The pt was given azithromycin 500mg IV and ceftriaxone 1gram when it was suspected sepsis came from respiratory source. The pt was given Cipro 400 IV at 15:00 for possible sepsis due to UTI with results of the urine and confirmed ureteral stent in place. Pt with hypokalemia , 2.6 and EKG showing LBBB, unchanged since 07/05/17, replaced with 2 runs of KCL IV. Elevated troponin from baseline and abnormal, considered to be due to demand ischemia and elevated renal function, acute kidney injury. Urine output only 150cc after 30ml/kg of IV fluid given. US of kidneys not done after discussion with Dr. Adam. lactic acid 1.2, glucose 190, anion gap 14.; repeat at 15:45 is 170. wbc count only 4.5 with 90% neutrophils. Pt will be transferred for higher level of care for urology care that is not available at [facility] today, and will return pt to his urologists. - Diagnoses Provider Diagnoses: Sepsis due to urinary tract infection, Hypokalemia, LBBB (left bundle branch block), Acute kidney injury, Elevated troponin, Tachycardia, Decubitus ulcer, Paraplegia, Spina bifida, Poorly controlled diabetes mellitus - Provider Notifications Time Discussed With Above Provider: 13:17 Instructed by Provider To: Transfer Reason For Transfer: Specialty available at [facility] but not cassandra consultant. - Critical Care Time Critical Care Time: 30-74 min - 60 minutes Discharge - Sign-Out/Discharge Documenting (check all that apply): Post-Discharge Follow Up - Discharge Plan Condition: Stable Disposition: TRANS [facility] OF CARE FAC Referrals: Néstor Mitchell MD [Primary Care Provider] - - Billing Disposition and Condition Condition: STABLE Disposition: EMTALA
== END 2017-12-06 17:03 | disposition short-term general hospital (02) ==
LOC: ED 10:45
DX: A41.9 Sepsis, unspecified organism (principal); N39.0 Urinary tract infection, site not specified; E87.6 Hypokalemia; I44.7 Left bundle-branch block, unspecified; N17.9 Acute kidney failure, unspecified; R00.0 Tachycardia, unspecified; L89.90 Pressure ulcer of unspecified site, unspecified stage; G82.20 Paraplegia, unspecified; Q05.9 Spina bifida, unspecified; E11.9 Type 2 diabetes mellitus without complications; I25.10 Atherosclerotic heart disease of native coronary artery without angina pectoris; R05 Cough; Z87.891 Personal history of nicotine dependence
CPT/HCPCS: 36415; 71045; 74018; 80053; 81003; 82550; 83605; 83880; 84145; 84484; 85025; 85610; 85652; 85730; 86140; 87040; 87070; 87077; 87186; 87205; 87502; 93005; 94640; 96374; 99285; A9270-GY; J0456; J0696; J0744; J2270; J2405; J3480

== ENCOUNTER 2018-02-07 14:40 | Emergency (ER) | payer MEDICARE, MEDICAID ==
[2018-02-07] MEDS ORDERED: NS 0.9% 1000 ML*IV.FLUID IV ONE (14:52)
[2018-02-07] MEDS ORDERED: Ciprofloxacin 400MG IVPREMIX(* 400 MG/200 ML BAG IVPB ONE (14:53)
[2018-02-07] MEDS ORDERED: Cefepime(*) 1 GM in NS 0.9% 50 ML* 50 ML IVPB ONE (14:53)
[2018-02-07 15:12] LABS: ABS Basophils 0 10^3/ul (0-0.2); ABS Eosinophils 0 10^3/ul (0-0.6); ABS Lymphocytes 0.4 10^3/ul (1.0-4.8); ABS Monocytes 0.5 10^3/ul (0-0.8); ABS Neutrophils 6.8 10^3/ul (1.5-7.7); ABS Nucleated RBC 0 10^3/ul; Eosinophil % 0.1 % (0-6); Hematocrit 28 % (42-52); Hemoglobin 9.2 g/dl (14.0-18.0); Lymphocyte % 4.6 % (25-47); Mean Corpuscular HGB Conc 33 g/dl (31-36); Mean Corpuscular Hemoglobin 27 pg (27-31); Mean Corpuscular Volume 81 fL (80-94); Mean Platelet Volume 6.8 um3 (7.4-10.4); Nucleated Red Blood Cells % 0.1; Platelet Count 171 10^3/ul (150-450); Red Blood Count 3.47 10^6/ul (4.0-5.4); Red Cell Distribution Width 18 % (10.5-15); White Blood Count 7.8 10^3/ul (3.5-10.8)
[2018-02-07 15:24] LABS: INR 1.26 (0.77-1.02)
[2018-02-07 15:29] LABS: EGFR Non-African American 65.1 (>60)
[2018-02-07] MEDS ORDERED: NS 0.9% 50 ML* 100 ML ONE (15:38)
[2018-02-07] MEDS ORDERED: Acetaminophen TAB* 325 MG PO ONE (15:49)
[2018-02-07] MEDS ORDERED: Acetaminophen SUPP* 650 MG SUPP PR ONE (16:44)
[2018-02-07] MEDS ORDERED: D5W 50 ML BAG* 50 ML ONE (16:47)
[2018-02-07 16:56] LABS: Urine Appearance Cloudy; Urine Blood 2+ (Negative); Urine Color Yellow; Urine Ketones Negative (Negative); Urine Protein 2+(100 mg/dL) (Negative); Urine Specific Gravity 1.011 (1.010-1.030); Urine Urobilinogen Negative (Negative)
[2018-02-07] MEDS ORDERED: Cefepime(*) 1 GM in D5W 50 ML BAG* 50 ML IVPB ONE (17:00)
--- NOTE | 2018-02-07 17:01 | RAD ---
INDICATION: Sepsis. COMPARISON: Comparison is made with a prior chest x-ray study from December 06, 2017. TECHNIQUE: A portable view of the chest was obtained. FINDINGS: Cardiac and mediastinal contours appear to be within normal limits. The lungs are underinflated with more focal elevation of the right hemidiaphragm which appears unchanged from the prior study. The lungs are grossly clear. No pleural effusion is seen. IMPRESSION: NO EVIDENCE FOR ACUTE DISEASE.
[2018-02-07] MEDS ORDERED: NS 0.9% 1000 ML* 1,000 ML IV ONE (19:29)
--- NOTE | 2018-02-07 19:32 | ED ---
Flaquito Ross Angela, scribed for Juan Obrien MD on 02/07/18 at 1447 . Abdominal Pain/Male - HPI Summary HPI Summary: This pt is a 57 y/o male presenting to [facility] via EMS from [facility] c/o abdominal pain and fever. [facility] staff took the pt's temperature this morning at 07:30 and it was 100.3F. Per EMS pt currently has a heart rate of 120 and temperature of 102.9 F. Pt has no nausea, vomiting, or diarrhea, per EMS. PMHx includes nephrostomy tube. HPI IS LIMITED DUE TO LEVEL 5 CAVEAT - pt is a poor historian - History of Current Complaint Stated Complaint: GENERAL ILLNESS Hx Obtained From: Patient, EMS Hx From Patient Unobtainable Due To: Other - Level 5 caveat - pt is a poor historian Onset/Duration: Still Present Timing: Lasting Hours Severity Currently: Severe Pain Intensity: 10 Pain Scale Used: pt is a poor historian Location: Diffuse Radiates: No Aggravating Factor(s): Other: - unknown Alleviating Factor(s): Other: - unknown Associated Signs And Symptoms: Positive: Fever, Other - POS: increased heart rate - Allergies/Home Medications Allergies/Adverse Reactions: Allergies Allergy/AdvReac Type Severity Reaction Status Date / Time clindamycin Allergy Intermediate Unknown Verified 12/06/17 12:05 Reaction Details Penicillins Allergy Intermediate Unknown Verified 12/06/17 12:05 Reaction Details Home Medications: Home Medications Acetaminophen [Acetaminophen Extra Strength] 1,000 mg PO BID 02/07/18 [History Confirmed 02/07/18] Aspirin EC TAB* [Ecotrin EC Low Dose 81 MG*] 81 mg PO DAILY 02/07/18 [History Confirmed 02/07/18] Cholecalciferol TAB* [Vitamin D TAB*] 50,000 unit PO MONTHLY 02/07/18 [History Confirmed 02/07/18] HYDROcodone/ACETAMIN 5-325 MG* [[place] 5-325 TAB*] 1 tab PO Q4H PRN 02/07/18 [ History Confirmed 02/07/18] Insulin GLARGINE(*) [Lantus(*)] 10 units SUBCUT BEDTIME 02/07/18 [History Confirmed 02/07/18] Lactase [Lactaid] 3,000 unit PO BID 02/07/18 [History Confirmed 02/07/18] Melatonin (NF) [Meladox] 3 mg PO BEDTIME 02/07/18 [History Confirmed 02/07/18] Metoprolol Succinate XL TAB* [Toprol XL TAB*] 25 mg PO QPM 02/07/18 [History Confirmed 02/07/18] Ranitidine TAB (NF) [Zantac TAB (NF)] 300 mg PO BEDTIME 02/07/18 [History Confirmed 02/07/18] Sertraline* [Zoloft*] 100 mg PO DAILY 02/07/18 [History Confirmed 02/07/18] PMH/Surg Hx/FS Hx/Imm Hx Endocrine/Hematology History: Reports: Hx Anticoagulant Therapy, Hx Diabetes Denies: Hx Thyroid Disease Cardiovascular History: Reports: Hx Coronary Artery Disease, Hx Hypercholesterolemia, Hx Hypertension, Other Cardiovascular Problems/Disorders - HYPERTENSION/CAD Denies: Hx Congestive Heart Failure, Hx Pacemaker/ICD Respiratory History: Denies: Hx Asthma, Hx Chronic Obstructive Pulmonary Disease (COPD), Other Respiratory Problems/Disorders GI History: Reports: Hx Gastroesophageal Reflux Disease History: Reports: Hx Kidney Stones, Other Problems/Disorders - left ureteral stent, "encrusted", hx MRSA urosepsis Denies: Hx Dialysis, Hx Renal Disease Musculoskeletal History: Reports: Hx Back Problems Neurological History: Reports: Hx Transient Ischemic Attacks (TIA) Denies: Hx Dementia, Hx Seizures Psychiatric History: Reports: Hx Anxiety, Hx Depression, Hx of Violent Episodes Against Others Denies: Hx Panic Disorder, Hx Substance Abuse - Cancer History Cancer Type, Location and Year: COLON - Surgical History Surgery Procedure, Year, and Place: pt declared "colon cancer and something on heart", appears to have port scar (this was in chart prior to 12/06/17). ureteral stent, [facility]. RLQ abdominal scar Infectious Disease History: Denies: Hx Hepatitis, Hx Human Immunodeficiency Virus (HIV) - Family History Known Family History: Positive: Respiratory Disease - pneumonia - Social History Alcohol Use: None Hx Substance Use: No Substance Use Type: Reports: None Hx Tobacco Use: Yes Smoking Status (MU): Former Smoker Review of Systems - ROS Summary Review of Systems Summary: ROS IS LIMITED DUE TO LEVEL 5 CAVEAT - pt is a poor historian Positive: Fever Positive: Abdominal Pain. Negative: Vomiting, Diarrhea, Nausea All Other Systems Reviewed And Are Negative: No Physical Exam - Summary Physical Exam Summary: Constitutional: Well-developed, Well-nourished, Ill-appearing, Alert. (-) Distressed Skin: Warm, Dry HENT: Normocephalic; Atraumatic. Dry mucous membranes. Eyes: Conjunctiva normal Neck: Musculoskeletal ROM normal neck. (-) JVD, (-) Stridor, (-) Tracheal deviation Cardio: Rhythm regular, rate normal, Heart sounds normal; Intact distal pulses; The pedal pulses are 2+ and symmetric. Radial pulses are 2+ and symmetric. (-) Murmur Pulmonary/Chest wall: Effort normal. (-) Respiratory distress, (-) Wheezes, (-) Rales Abd: Soft, (-) Tenderness, (-) Distension, (-) Guarding, (-) Rebound Musculoskeletal: (-) Edema Lymph: (-) Cervical adenopathy Neuro: Alert, disoriented. Pt is slow to answer. Pt is a poor historian. Psych: Mood and affect Normal Triage Information Reviewed: Yes Vital Signs On Initial Exam: Initial Vitals Temp Pulse Resp BP Pulse Ox 102 F 121 22 161/82 96 02/07/18 14:47 02/07/18 14:47 02/07/18 14:47 02/07/18 14:47 02/07/18 14:47 Vital Signs Reviewed: Yes Completion Of Physical Exam Limited Due To: Level 5 - pt is a poor historian Diagnostics - Laboratory Result Diagrams: 02/07/18 15:00 02/07/18 15:00 Lab Statement: Any lab studies that have been ordered have been reviewed, and results considered in the medical decision making process. - Radiology Chest XR Xray Interpretation: No Acute Changes - IMPRESSION: No evidence for acute disease. Dr. Obrien has reviewed this radiology report. Radiology Interpretation Completed By: Radiologist - CT Abdomen/Pelvis CT CT Interpretation Completed By: Radiologist - pending official report, please see [facility]. - EKG 15:28 Cardiac Rate: Tachycardia - at 112 bpm EKG Rhythm: Sinus Tachycardia EKG Interpretation: LBBB. No STEMI. Abdominal Pain Fem Course/Dx - Course Assessment/Plan: Pt is a 57 y/o male, with nephrostomy tube from [facility], with abdominal pain and fever. [facility] staff took the pt's temperature this morning at 07:30 and it was 100.3F. Per EMS pt currently has a heart rate of 120 and temperature of 102.9 F. Pt has no nausea, vomiting, or diarrhea, per EMS. Chest XR is negative. Sepsis protocol was initiated. In the ED course the pt was given IV fluids, Tylenol, Ciprofloxacin, Cefepime. I discussed pt care with Dr. Castillo, hospitalist, who has accepted the pt for admission. GREGORY Mosquera from hospitalist services, reports that since we don't have urology services or interventional radiology services he recommends to transfer the pt to [facility], where the pt had his nephrostomy tube placed. Pt likely needs to have his nephrostomy tube changed out. I discussed case with Transfer Center at [facility]. Dr. Rene accepted the pt for transfer. - Diagnoses Provider Diagnoses: Sepsis, Urinary tract infection - Provider Notifications Discussed Care Of Patient With: Cortney Castillo Time Discussed With Above Provider: 16:51 Instructed by Provider To: Other - I discussed pt care with Dr. Castillo, artemio, who has accepted the pt for admission. [19:22] I discussed case with Transfer Center at [facility]. Dr. Rene accepted the pt for transfer. - Critical Care Time Critical Care Time: 30-74 min - 35 minutes Discharge - Sign-Out/Discharge Documenting (check all that apply): Discharge/Admit/Transfer - Transfer - Discharge Plan Condition: Stable Disposition: TRANS HIGHER LVL OF CARE FAC Discharge Disposition Comment: [facility] Referrals: Néstor Mitchell MD [Primary Care Provider] - The documentation as recorded by the Flaquito pedroza Angela accurately reflects the service I personally performed and the decisions made by , Juan Obrien MD.
--- NOTE | 2018-02-07 19:33 | RAD ---
CLINICAL HISTORY: "Sepsis, stone DX" COMPARISON: CT abdomen pelvis July 06, 2017 TECHNIQUE: Noncontrast CT examination of the abdomen and pelvis from the lung bases through the initial tuberosities. FINDINGS: Unless otherwise specified comparisons below reference to July 06, 2017 CT examination. VISUALIZED LUNG BASES: The visualized lung bases are grossly clear. There is no pleural effusion. ABDOMEN AND PELVIS: Evaluation of the solid organs and vasculature is limited without intravenous contrast. The liver, pancreas and adrenal glands are grossly normal in appearance. Hyperattenuating material in the dependent portion of the gallbladder lumen could be gallbladder sludge. The spleen is enlarged measuring up to 17.3 cm in greatest axial dimension. There is the appearance of staghorn calcification filling predominantly the lower pole right collecting system with the largest stone measuring 1.5 cm in greatest dimension (coronal image 75). This has advanced since the previous CT examination. Despite this appearance there is no significant right-sided hydronephrosis. There is a left ureteral stent and percutaneous nephrostomy that appear to be appropriately position. There is a mild degree of dilatation of the collecting system, and appearance similar to the previous CT. Evaluation of the gastrointestinal tract is limited without oral contrast. The small and large bowel are not distended. The patient appears to be status post cholecystectomy with hyperattenuating material the base of the cecum (axial image 47). The stool-filled rectum is mildly dilated measuring 8.5 cm in greatest dimension. There is no gross retroperitoneal or mesenteric lymphadenopathy. The pelvic viscera is normal in appearance. The abdominal aorta and iliac arteries are normal in course and diameter. Degenerative changes include multilevel loss of intervertebral disc height involving the lower thoracic and lumbar spine.There are no sinister bone lesions. IMPRESSION: 1. There has been interval increase in the lower pole collecting system stone burden within appearance beginning to resemble a "staghorn calculus". Despite this appearance there is no kelley right-sided hydronephrosis. 2. Left ureteral stent and left percutaneous nephrostomy tube appear to be appropriately positioned. Despite their presence, there is appearance of mild left-sided hydronephrosis, worse when compared to the 2016 CT examination. 3. Potential fecal impaction in the mildly dilated rectum. These correlate to signs or symptoms of constipation. 4. Additional chronic, degenerative and iatrogenic findings described in body the report.
[2018-02-07] MEDS ORDERED: Morphine INJ* 10 MG/ML 1 ML CARPUJECT IV ONE (20:24)
[2018-02-07] MEDS ORDERED: Morphine VIAL* 4 MG/ML VIAL (1 ml vial) IV ONE (20:28)
[2018-02-07 22:00] VITALS: BP 158/67
--- NOTE | 2018-02-09 08:16 | PN ---
Progress Note - Progress Note Date of Service: 02/07/18 Note: Urine culture grew Proteus mirabilis Patient was transferred to a higher level of care Nothing further at this time
--- NOTE | 2018-02-11 09:43 | ED ---
Progress - Progress Note Progress Note: Patient's preliminary urine culture results reveal greater than 100,000 Proteus Mirabilis and 75-100,000 Pseudomonas Aeruginosa. Final results with antibiotic sensitivities have returned for pseudomonas aeruginosa. Patient was transferred to [facility] and received by Dr. Rene. Spoke with Cheri port warden, to fax results. Course/Dx - Diagnoses Provider Diagnoses: Sepsis, Urinary tract infection - Provider Notifications Time Discussed With Above Provider: 16:51 Instructed by Provider To: Other - I discussed pt care with Dr. Castillo, hospitalist, who has accepted the pt for admission. [19:22] I discussed case with Transfer Center at [facility]. Dr. Rene accepted the pt for transfer. - Critical Care Time Critical Care Time: 30-74 min - 35 minutes Discharge - Sign-Out/Discharge Documenting (check all that apply): Post-Discharge Follow Up - Discharge Plan Condition: Stable Disposition: TRANS HIGHER LVL OF CARE FAC Referrals: Néstor Mitchell MD [Primary Care Provider] - - Billing Disposition and Condition Condition: STABLE Disposition: Trans Higher Lvl of Care Fac
== END 2018-02-07 21:57 | disposition short-term general hospital (02) ==
LOC: ED 14:40
DX: A41.9 Sepsis, unspecified organism (principal); N39.0 Urinary tract infection, site not specified; B96.4 Proteus (mirabilis) (morganii) as the cause of diseases classified elsewhere; B96.5 Pseudomonas (aeruginosa) (mallei) (pseudomallei) as the cause of diseases classified elsewhere; Z16.20 Resistance to unspecified antibiotic; R00.0 Tachycardia, unspecified; E11.9 Type 2 diabetes mellitus without complications; Z79.4 Long term (current) use of insulin; I25.10 Atherosclerotic heart disease of native coronary artery without angina pectoris; I10 Essential (primary) hypertension; E78.00 Pure hypercholesterolemia, unspecified; K21.9 Gastro-esophageal reflux disease without esophagitis; Z87.442 Personal history of urinary calculi; Z86.73 Personal history of transient ischemic attack (TIA), and cerebral infarction without residual deficits; F41.9 Anxiety disorder, unspecified; F32.9 Major depressive disorder, single episode, unspecified; Z85.038 Personal history of other malignant neoplasm of large intestine; Z83.6 Family history of other diseases of the respiratory system; Z88.1 Allergy status to other antibiotic agents; Z88.0 Allergy status to penicillin; Z87.891 Personal history of nicotine dependence
CPT/HCPCS: 36415; 71045; 74176; 80053; 81003; 81015; 83605; 84484; 85025; 85610; 85730; 87040; 87077; 87086; 87184; 87186; 93005; 96365; 96366; 96375; 99284; A9270-GY; J0692; J0744; J2270

== ENCOUNTER 2018-03-27 18:35 | Emergency (ER) | payer MEDICARE, MEDICAID ==
[2018-03-27] MEDS ORDERED: NS 0.9% 1000 ML*IV.FLUID IV ONE (19:03)
--- NOTE | 2018-03-27 19:18 | ED ---
Abdominal Pain/Male - HPI Summary HPI Summary: This is scribe Darryl Blandsain documenting for attending Dr. August Segura MD. A 57 y/o male ANJEL presents to the ED c/o abdominal pain. The patient was a poor historian and was not responsive to questions. As per triage, "left flank pain and clogged nephrostomy tube, decreased urine out put x days (8/10 in severity). It was noted that the patient came from the [facility]. - History of Current Complaint Chief Complaint: EDFlankPain Stated Complaint: BACK PAIN, POSS NEPHROSTOMY TUBE CLOGGED Time Seen by Provider: 03/27/18 19:03 Hx Obtained From: Patient Hx From Patient Unobtainable Due To: Altered Mental Status Severity Currently: Severe Pain Intensity: 8 Pain Scale Used: 0-10 Numeric Radiates: No Aggravating Factor(s): Nothing Alleviating Factor(s): Nothing - Allergies/Home Medications Allergies/Adverse Reactions: Allergies Allergy/AdvReac Type Severity Reaction Status Date / Time clindamycin Allergy Intermediate Unknown Verified 12/06/17 12:05 Reaction Details Penicillins Allergy Intermediate Unknown Verified 12/06/17 12:05 Reaction Details Home Medications: Home Medications Atorvastatin* [Lipitor*] 10 mg PO BEDTIME 03/27/18 [History Confirmed 03/27/18] Ferrous Sulfate TAB* 325 mg PO QPM 03/27/18 [History Confirmed 03/27/18] Melatonin (NF) 3 mg PO BEDTIME PRN 03/27/18 [History Confirmed 03/27/18] Minerin Cream* [Eucerin Cream*] 1 applic TOPICAL BID 03/27/18 [History Confirmed 03/27/18] PMH/Surg Hx/FS Hx/Imm Hx Endocrine/Hematology History: Reports: Hx Anticoagulant Therapy, Hx Diabetes Denies: Hx Thyroid Disease Cardiovascular History: Reports: Hx Coronary Artery Disease, Hx Hypercholesterolemia, Hx Hypertension, Other Cardiovascular Problems/Disorders - HYPERTENSION/CAD Denies: Hx Congestive Heart Failure, Hx Pacemaker/ICD Respiratory History: Denies: Hx Asthma, Hx Chronic Obstructive Pulmonary Disease (COPD), Other Respiratory Problems/Disorders GI History: Reports: Hx Gastroesophageal Reflux Disease History: Reports: Hx Kidney Stones, Other Problems/Disorders - left ureteral stent, "encrusted", hx MRSA urosepsis Denies: Hx Dialysis, Hx Renal Disease Musculoskeletal History: Reports: Hx Back Problems Neurological History: Reports: Hx Transient Ischemic Attacks (TIA) Denies: Hx Dementia, Hx Seizures Psychiatric History: Reports: Hx Anxiety, Hx Depression, Hx of Violent Episodes Against Others Denies: Hx Panic Disorder, Hx Substance Abuse - Cancer History Cancer Type, Location and Year: COLON - Surgical History Surgery Procedure, Year, and Place: pt declared "colon cancer and something on heart", appears to have port scar (this was in chart prior to 12/06/17). ureteral stent, [facility]. RLQ abdominal scar Infectious Disease History: Unable to Obtain/Confirm Infectious Disease History: Denies: Hx Hepatitis, Hx Human Immunodeficiency Virus (HIV), Traveled Outside the [place] in Last 30 Days - Family History Known Family History: Positive: Respiratory Disease - pneumonia - Social History Alcohol Use: None Hx Substance Use: No Substance Use Type: Reports: None Hx Tobacco Use: Yes Smoking Status (MU): Former Smoker Review of Systems Positive: Fever Positive: Abdominal Pain - Left flank pain All Other Systems Reviewed And Are Negative: Yes Physical Exam - Summary Physical Exam Summary: Appearance: Well-appearing, Well-nourished, lying in bed comfortable. Has fever. Mental status did not allow for proper history. Skin: Warm, dry, no obvious rash Eyes: sclera anicteric, no conjunctival pallor ENT: mucous membranes moist Neck: deferred Respiratory: No signs of respiratory distress Cardiovascular: Appears well perfused, tachycardic Abdomen: deferred Musculoskeletal: Moving all 4 extremities without obvious discomfort Neurological: Awake and alert, mentation is normal, speech is fluent and appropriate Psychiatric: affect is normal, does not appear anxious or depressed Triage Information Reviewed: Yes Vital Signs On Initial Exam: Initial Vitals Temp Pulse Resp BP Pulse Ox 103.5 F 119 30 159/83 97 03/27/18 18:59 03/27/18 18:59 03/27/18 18:59 03/27/18 18:59 03/27/18 18:59 Vital Signs Reviewed: Yes Diagnostics - Vital Signs Vital Signs Temp Pulse Resp BP Pulse Ox 03/27/18 18:59 103.5 F 119 30 159/83 97 - Laboratory Result Diagrams: 03/27/18 19:42 03/27/18 19:42 Lab Statement: Any lab studies that have been ordered have been reviewed, and results considered in the medical decision making process. Abdominal Pain Fem Course/Dx - Diagnoses Provider Diagnoses: Sepsis, Obstructed nephrostomy tube - Provider Notifications Discussed Care Of Patient With: Eduardo Pizarro Time Discussed With Above Provider: 20:27 Instructed by Provider To: Other - Recommends nephrostomy done here. If not, transfer patient. Consult at [address] Cadena at [facility]. Accpet spatient for admission. Patient will be transferred. Reason For Transfer: Specialty or service not available at [facility]. Discharge - Sign-Out/Discharge Documenting (check all that apply): Patient Departure - TRANSFER - Discharge Plan Condition: Stable Disposition: TRANS HIGHER LVL OF CARE FAC Referrals: Néstor Mitchell MD [Primary Care Provider] - - Billing Disposition and Condition Condition: STABLE Disposition: Trans Higher Lvl of Care Fac
[2018-03-27 19:57] LABS: ABS Basophils 0.1 10^3/ul (0-0.2); ABS Eosinophils 0 10^3/ul (0-0.6); ABS Lymphocytes 0.4 10^3/ul (1.0-4.8); ABS Monocytes 0.6 10^3/ul (0-0.8); ABS Neutrophils 9.9 10^3/ul (1.5-7.7); ABS Nucleated RBC 0 10^3/ul; Eosinophil % 0.1 % (0-6); Hematocrit 30 % (42-52); Lymphocyte % 3.6 % (25-47); Mean Corpuscular HGB Conc 33 g/dl (31-36); Mean Corpuscular Hemoglobin 26 pg (27-31); Mean Corpuscular Volume 78 fL (80-94); Mean Platelet Volume 6.5 um3 (7.4-10.4); Nucleated Red Blood Cells % 0.1; Platelet Count 236 10^3/ul (150-450); Red Blood Count 3.85 10^6/ul (4.00-5.40); Red Cell Distribution Width 18 % (10.5-15)
[2018-03-27 20:06] LABS: INR 1.24 (0.77-1.02)
[2018-03-27] MEDS ORDERED: Levofloxacin 500 MG IVPREMIX(* 500 MG/100 ML BAG IVPB ONE (20:11)
[2018-03-27 20:15] LABS: EGFR Non-African American 73.1 (>60)
[2018-03-27 21:19] LABS: Urine Appearance Cloudy; Urine Blood 3+ (Negative); Urine Color Yellow; Urine Ketones Negative (Negative); Urine Protein 1+(30 mg/dL) (Negative); Urine Red Blood Cell 3+(>10/hpf) (Absent); Urine Specific Gravity 1.013 (1.010-1.030); Urine Urobilinogen Negative (Negative); Urine White Blood Cell 3+(>20/hpf) (Absent)
[2018-03-27 22:50] VITALS: BP 144/67
--- NOTE | 2018-03-30 14:14 | ED ---
Progress - Progress Note Progress Note: Patient's preliminary urine culture reveals greater than 100,000 pseudomonas aeruginosa. He was seen in the ED for a clogged nephrostomy tube with confusion. Patient was transferred to [facility]. Will fax results. Cheri cm aware. Course/Dx - Diagnoses Provider Diagnoses: Sepsis, Obstructed nephrostomy tube - Provider Notifications Time Discussed With Above Provider: 20:27 Instructed by Provider To: Other - Recommends nephrostomy done here. If not, transfer patient. Consult at [address] Cadena at [facility]. Accpet spatient for admission. Patient will be transferred. Reason For Transfer: Specialty or service not available at [facility]. Discharge - Sign-Out/Discharge Documenting (check all that apply): Post-Discharge Follow Up - Discharge Plan Condition: Stable Disposition: TRANS HIGHER LVL OF CARE FAC Referrals: Néstor Mitchell MD [Primary Care Provider] - - Billing Disposition and Condition Condition: STABLE Disposition: Trans Higher Lvl of Care Fac
--- NOTE | 2018-03-31 16:25 | ED ---
Progress - Progress Note Progress Note: Patient's preliminary urine culture reveals greater than 100,000 pseudomonas aeruginosa. He was seen in the ED for a clogged nephrostomy tube with confusion. Patient was transferred to [facility]. Will fax results. Cheri cm aware. UPDATE: Pt's sensitivities are complete. Will fax to [facility]. abelardo Dc, aware. Course/Dx - Diagnoses Provider Diagnoses: Sepsis, Obstructed nephrostomy tube - Provider Notifications Time Discussed With Above Provider: 20:27 Instructed by Provider To: Other - Recommends nephrostomy done here. If not, transfer patient. Consult at [address] Cadena at [facility]. Accpet spatient for admission. Patient will be transferred. Reason For Transfer: Specialty or service not available at [facility] [place]. Discharge - Sign-Out/Discharge Documenting (check all that apply): Post-Discharge Follow Up - Discharge Plan Condition: Stable Disposition: TRANS HIGHER LVL OF CARE FAC Referrals: Néstor Mitchell MD [Primary Care Provider] - - Billing Disposition and Condition Condition: STABLE Disposition: Trans Higher Lvl of Care Fac
== END 2018-03-27 21:39 | disposition short-term general hospital (02) ==
LOC: ED 18:35
DX: A41.9 Sepsis, unspecified organism (principal); T83.092A Other mechanical complication of nephrostomy catheter, initial encounter; E78.00 Pure hypercholesterolemia, unspecified; Z79.01 Long term (current) use of anticoagulants; Z85.038 Personal history of other malignant neoplasm of large intestine; Z88.1 Allergy status to other antibiotic agents; Z88.0 Allergy status to penicillin; Z83.6 Family history of other diseases of the respiratory system; Z87.891 Personal history of nicotine dependence
CPT/HCPCS: 36415; 80053; 81003; 81015; 83605; 84484; 85025; 85610; 85730; 87040; 87077; 87086; 87186; 96365; 99285; J1956

== ENCOUNTER 2018-05-04 18:38 | Emergency (ER) | payer MEDICARE, MEDICAID ==
--- NOTE | 2018-05-04 19:45 | ED ---
GI/ HPI - HPI Summary HPI Summary: This patient is a 57 year old M presenting to [facility] with a chief complaint of hematuria since his nephrostomy (per triage). Pt says he does not know why he is in ED. Pt endorses abd pain. Level 5 caveat: Full HPI unobtainable due to pt AMS. - History of Current Complaint Chief Complaint: EDUrogenitalProblems Time Seen by Provider: 05/04/18 19:27 Stated Complaint: BLOOD IN URINE Hx Obtained From: Patient Hx From Patient Unobtainable Due To: Altered Mental Status Onset/Duration: Atraumatic, Still Present Timing: Constant Severity: Mild Current Severity: Mild Pain Intensity: 0 Associated Signs and Symptoms: Positive: Hematuria, Abdominal Pain - Allergy/Home Medications Allergies/Adverse Reactions: Allergies Allergy/AdvReac Type Severity Reaction Status Date / Time clindamycin Allergy Intermediate Unknown Verified 05/04/18 18:59 Reaction Details Penicillins Allergy Intermediate Unknown Verified 05/04/18 18:59 Reaction Details PMH/Surg Hx/FS Hx/Imm Hx Endocrine/Hematology History: Reports: Hx Anticoagulant Therapy, Hx Diabetes Denies: Hx Thyroid Disease Cardiovascular History: Reports: Hx Coronary Artery Disease, Hx Hypercholesterolemia, Hx Hypertension, Other Cardiovascular Problems/Disorders - HYPERTENSION/CAD Denies: Hx Congestive Heart Failure, Hx Pacemaker/ICD Respiratory History: Denies: Hx Asthma, Hx Chronic Obstructive Pulmonary Disease (COPD), Other Respiratory Problems/Disorders GI History: Reports: Hx Gastroesophageal Reflux Disease History: Reports: Hx Kidney Stones, Other Problems/Disorders - left ureteral stent, "encrusted", hx MRSA urosepsis Denies: Hx Dialysis, Hx Renal Disease Musculoskeletal History: Reports: Hx Back Problems Neurological History: Reports: Hx Transient Ischemic Attacks (TIA) Denies: Hx Dementia, Hx Seizures Psychiatric History: Reports: Hx Anxiety, Hx Depression, Hx of Violent Episodes Against Others Denies: Hx Panic Disorder, Hx Substance Abuse - Cancer History Cancer Type, Location and Year: COLON - Surgical History Surgery Procedure, Year, and Place: pt declared "colon cancer and something on heart", appears to have port scar (this was in chart prior to 12/06/17). ureteral stent, [facility]. RLQ abdominal scar Infectious Disease History: No Infectious Disease History: Denies: Hx Hepatitis, Hx Human Immunodeficiency Virus (HIV), Traveled Outside the [place] in Last 30 Days - Family History Known Family History: Positive: Respiratory Disease - pneumonia - Social History Alcohol Use: None Hx Substance Use: No Substance Use Type: Reports: None Hx Tobacco Use: Yes Smoking Status (MU): Former Smoker - Additional Comments History Additional Comments: Level 5 caveat: Full PMHx unobtainable due to pt's AMS. Review of Systems - ROS Summary Review of Systems Summary: Level 5 caveat: Full ROS unobtainable due to pt's AMS. Positive: Abdominal Pain Positive: hematuria All Other Systems Reviewed And Are Negative: No Physical Exam - Summary Physical Exam Summary: Appearance: Well-appearing, Well-nourished, lying in bed comfortably Skin: Warm, dry, no obvious rash Eyes: sclera anicteric, no conjunctival pallor ENT: mucous membranes moist, pharynx appears normal Neck: Supple, non-tender Respiratory: Clear to auscultation, no signs of respiratory distress Cardiovascular: Normal S1, S2. No murmurs. Normal distal pulses in tibial and radial bilaterally. Abdomen: Soft, non-tender, normal active bowel sounds present Musculoskeletal: Normal, Strength/ROM Intact Neurological: confused Psychiatric: affect is normal, does not appear anxious or depressed Triage Information Reviewed: Yes Vital Signs On Initial Exam: Initial Vitals Pulse Pulse Ox 84 96 05/04/18 18:48 05/04/18 18:48 Vital Signs Reviewed: Yes Completion Of Physical Exam Limited Due To: Altered Mental Status Diagnostics - Vital Signs Vital Signs Temp Pulse Resp BP Pulse Ox 05/04/18 19:00 80 94 05/04/18 18:54 84 160/69 97 05/04/18 18:49 99.7 F 87 19 166/74 95 05/04/18 18:48 84 96 - Laboratory Result Diagrams: 05/04/18 20:03 05/04/18 20:03 Lab Statement: Any lab studies that have been ordered have been reviewed, and results considered in the medical decision making process. GIGU Course/Dx - Course Course Of Treatment: This is a 57-year-old man with multiple chronic medical conditions who was sent in from the assisted with new-onset of hematuria from his nephrostomy. He has had a great deal of trouble with obstruction as well as infection related to his nephrostomy and has had to go to a tertiary care center in a couple of occasions over the past few months. However today, there is no fever or other evidence of infection. His urine chronically is positive for leukocyte esterase as well as red cells and white cells. He has mildly bloody urine coming through the nephrostomy, but there is no sign that the nephrostomy is obstructed. Accordingly, I believe he can be returned to the assisted for observation. If he spikes a fever or his nephrostomy becomes obstructed he will need to be seen again. - Diagnoses Provider Diagnoses: Hematuria Discharge - Sign-Out/Discharge Documenting (check all that apply): Patient Departure - discharge - Discharge Plan Condition: Guarded Disposition: HOME Referrals: Néstor Mitchell MD [Primary Care Provider] - - Attestation Statements Document Initiated by Scribe: Yes Documenting Scribe: David Lee Provider For Whom Scribe is Documenting (Include Credential): Dr. August Segura MD Scribe Attestation: David Ross, scribed for Dr. August Segura MD on 05/04/18 at [id number].
[2018-05-04] MEDS: NS 0.9% 1000 ML*IV.FLUID IV ONE ×2 (20:08→20:09)
[2018-05-04 20:17] LABS: ABS Basophils 0 10^3/ul (0-0.2); ABS Eosinophils 0.1 10^3/ul (0-0.6); ABS Lymphocytes 0.4 10^3/ul (1.0-4.8); ABS Monocytes 0.4 10^3/ul (0-0.8); ABS Neutrophils 7.1 10^3/ul (1.5-7.7); ABS Nucleated RBC 0 10^3/ul; Eosinophil % 0.8 % (0-6); Hematocrit 29 % (42-52); Hemoglobin 9.4 g/dl (14.0-18.0); Lymphocyte % 4.8 % (25-47); Mean Corpuscular HGB Conc 33 g/dl (31-36); Mean Corpuscular Hemoglobin 25 pg (27-31); Mean Corpuscular Volume 76 fL (80-94); Mean Platelet Volume 7.2 um3 (7.4-10.4); Nucleated Red Blood Cells % 0; Platelet Count 210 10^3/ul (150-450); Red Blood Count 3.78 10^6/ul (4.00-5.40); Red Cell Distribution Width 18 % (10.5-15); White Blood Count 7.9 10^3/ul (3.5-10.8)
[2018-05-04 20:23] LABS: INR 1.17 (0.77-1.02)
[2018-05-04 20:32] LABS: EGFR Non-African American 97.5 (>60)
[2018-05-04 22:52] LABS: Urine Appearance Cloudy; Urine Color Red
[2018-05-04 23:02] LABS: Urine Blood 3+ (Negative); Urine Ketones Trace (Negative); Urine Protein 2+(100 mg/dL) (Negative); Urine Red Blood Cell 3+(>10/hpf) (Absent); Urine Specific Gravity 1.009 (1.010-1.030); Urine Urobilinogen Negative (Negative); Urine White Blood Cell 3+(>20/hpf) (Absent)
[2018-05-05 01:09] VITALS: BP 138/74
--- NOTE | 2018-05-07 19:23 | ED ---
Progress - Progress Note Progress Note: Patient's preliminary urine culture reveals greater than 100,000 pseudomonas aeruginosa. Final results pending. Course/Dx - Course Course Of Treatment: This is a 57-year-old man with multiple chronic medical conditions who was sent in from the assisted with new-onset of hematuria from his nephrostomy. He has had a great deal of trouble with obstruction as well as infection related to his nephrostomy and has had to go to a tertiary care center in a couple of occasions over the past few months. However today, there is no fever or other evidence of infection. His urine chronically is positive for leukocyte esterase as well as red cells and white cells. He has mildly bloody urine coming through the nephrostomy, but there is no sign that the nephrostomy is obstructed. Accordingly, I believe he can be returned to the assisted for observation. If he spikes a fever or his nephrostomy becomes obstructed he will need to be seen again. - Diagnoses Provider Diagnoses: Hematuria Discharge - Sign-Out/Discharge Documenting (check all that apply): Post-Discharge Follow Up - Discharge Plan Condition: Guarded Disposition: HOME Referrals: Néstor Mitchell MD [Primary Care Provider] - - Billing Disposition and Condition Condition: GUARDED Disposition: Home
== END 2018-05-05 00:45 | disposition home or self-care (01) ==
LOC: ED 18:38
DX: R31.9 Hematuria, unspecified (principal); Z93.6 Other artificial openings of urinary tract status; Z86.73 Personal history of transient ischemic attack (TIA), and cerebral infarction without residual deficits; Z87.891 Personal history of nicotine dependence; Z88.3 Allergy status to other anti-infective agents; Z88.0 Allergy status to penicillin
CPT/HCPCS: 36415; 80053; 81003; 81015; 83605; 85025; 85610; 86140; 87040; 87077; 87086; 87186; 96360; 96361; 99283

== ENCOUNTER 2018-05-15 18:50 | Inpatient (IN) | payer MEDICARE, MEDICAID ==
[2018-05-15] MEDS ORDERED: Acetaminophen TAB* 325 MG PO ONE (19:13)
[2018-05-15] MEDS ORDERED: Levofloxacin 750 MG IVPREMIX(* 750 MG/150 ML BAG IVPB ONE (19:15)
[2018-05-15] MEDS ORDERED: Vancomycin(*) 1,000 MG in NS 0.9% 250 ML* 250 ML IVPB ONE (19:16)
--- NOTE | 2018-05-15 19:37 | ED ---
Abdominal Pain/Male - HPI Summary HPI Summary: This pt is a 57 y/o male presenting to [facility] via EMS from [facility] for fever and abdominal pain. Staff at [facility] noticed pt had a fever and sent him to the ED. Pt is able to state name and his location. He has a nephrostomy tube on the left. Denies SOB, chest pain. Rectal temperature is 101.3F. PMHx includes HTN, CAD, colon CA, DM. - History of Current Complaint Chief Complaint: EDFever Stated Complaint: WEAKNESS/ABD PAIN Time Seen by Provider: 05/15/18 19:05 Hx Obtained From: Patient Onset/Duration: Lasting Hours, Still Present Timing: Lasting Hours Severity Currently: Moderate Pain Intensity: 5 Pain Scale Used: 0-10 Numeric Location: Diffuse Radiates: No Aggravating Factor(s): Nothing Alleviating Factor(s): Nothing Associated Signs And Symptoms: Positive: Fever. Negative: Chest Pain, Other - SOB - Allergies/Home Medications Allergies/Adverse Reactions: Allergies Allergy/AdvReac Type Severity Reaction Status Date / Time clindamycin Allergy Intermediate Unknown Verified 05/04/18 18:59 Reaction Details Penicillins Allergy Intermediate Unknown Verified 05/04/18 18:59 Reaction Details PMH/Surg Hx/FS Hx/Imm Hx Endocrine/Hematology History: Reports: Hx Anticoagulant Therapy, Hx Diabetes Denies: Hx Thyroid Disease Cardiovascular History: Reports: Hx Coronary Artery Disease, Hx Hypercholesterolemia, Hx Hypertension, Other Cardiovascular Problems/Disorders - HYPERTENSION/CAD Denies: Hx Congestive Heart Failure, Hx Pacemaker/ICD Respiratory History: Denies: Hx Asthma, Hx Chronic Obstructive Pulmonary Disease (COPD), Other Respiratory Problems/Disorders GI History: Reports: Hx Gastroesophageal Reflux Disease History: Reports: Hx Kidney Stones, Other Problems/Disorders - left ureteral stent, "encrusted", hx MRSA urosepsis Denies: Hx Dialysis, Hx Renal Disease Musculoskeletal History: Reports: Hx Back Problems Neurological History: Reports: Hx Transient Ischemic Attacks (TIA) Denies: Hx Dementia, Hx Seizures Psychiatric History: Reports: Hx Anxiety, Hx Depression, Hx of Violent Episodes Against Others Denies: Hx Panic Disorder, Hx Substance Abuse - Cancer History Cancer Type, Location and Year: COLON - Surgical History Surgery Procedure, Year, and Place: pt declared "colon cancer and something on heart", appears to have port scar (this was in chart prior to 12/06/17). ureteral stent, [facility]. RLQ abdominal scar Infectious Disease History: Unable to Obtain/Confirm Infectious Disease History: Denies: Hx Hepatitis, Hx Human Immunodeficiency Virus (HIV), Traveled Outside the [place] in Last 30 Days - Family History Known Family History: Positive: Respiratory Disease - pneumonia - Social History Alcohol Use: None Hx Substance Use: No Substance Use Type: Reports: None Hx Tobacco Use: Yes Smoking Status (MU): Former Smoker Review of Systems Positive: Fever Negative: Chest Pain Negative: Shortness Of Breath Positive: Abdominal Pain Neurological: Negative All Other Systems Reviewed And Are Negative: Yes Physical Exam - Summary Physical Exam Summary: VITAL SIGNS: Reviewed. GENERAL: Patient is an ill-looking male who looks older than stated age. Patient is not in any acute respiratory distress. HEAD AND FACE: No signs of trauma. No ecchymosis, hematomas or skull depressions. No sinus tenderness. EYES: PERRLA, EOMI x 2, No injected conjunctiva, no nystagmus. EARS: Hearing grossly intact. Ear canals and tympanic membranes are within normal limits. MOUTH: Oropharynx within normal limits. NECK: Supple, trachea is midline, no adenopathy, no JVD, no carotid bruit, no c- spine tenderness, neck with full ROM. CHEST: Symmetric, no tenderness at palpation LUNGS: Decreased breath sounds bilaterally CVS: Regular rate and rhythm, S1 and S2 present, no murmurs or gallops appreciated. ABDOMEN: Soft, diffuse abdominal tenderness. No signs of distention. No rebound no guarding, and no masses palpated. Bowel sounds are normal. : pt has a nephrostomy tube on the left draining fizzy urine in urine bag. EXTREMITIES: Paraplegia with spams and stiffness in lower extremities. NEURO: Alert and oriented x 3. No acute neurological deficits. Speech is normal and follows commands. SKIN: Dry and warm Triage Information Reviewed: Yes Vital Signs On Initial Exam: Initial Vitals Resp BP 18 138/86 05/15/18 19:00 05/15/18 19:00 Temperature: 101.3 F O2 saturation: 93 on room air Vital Signs Reviewed: Yes Diagnostics - Vital Signs Vital Signs Temp Pulse Resp BP Pulse Ox 05/15/18 19:23 91 05/15/18 19:03 101.3 F 80 18 152/65 93 05/15/18 19:00 18 138/86 - Laboratory Result Diagrams: 05/15/18 20:05 05/15/18 20:05 Lab Statement: Any lab studies that have been ordered have been reviewed, and results considered in the medical decision making process. - Radiology Chest XR Xray Interpretation: No Acute Changes - No acute process. Pending official radiology report. Radiology Interpretation Completed By: ED Physician - CT CT abdomen/pelvis CT Interpretation: Positive (See Comments) - IMPRESSION: 1. No CT findings to correlate with patient's symptomatology. 2. Persistent right staghorn calculus and left pelvocaliectasis with indwelling nephrostomy and left double J ureteral stent. 3. Persistent relatively stable splenomegaly. 4. Additional incidental findings as described. Dr. Christopher has reviewed this radiology report. CT Interpretation Completed By: Radiologist - EKG 20:11 Cardiac Rate: NL - at 75 bpm EKG Rhythm: Sinus Rhythm EKG Interpretation: Left bundle branch block. Abdominal Pain Fem Course/Dx - Course Assessment/Plan: Pt is a 57 y/o male presenting to [facility] via EMS from [facility] for fever and abdominal pain. He has a nephrostomy tube on the left. Denies chest pain, SOB. In the ED course IV fluids, vancomycin, Levaquin, and Tylenol. Urinalysis is consistent with UTI. Chest XR is negative for an acute process. Abdomen/pelvis CT shows 1. No CT findings to correlate with patient's symptomatology. 2. Persistent right staghorn calculus and left pelvocaliectasis with indwelling nephrostomy and left double J ureteral stent. 3. Persistent relatively stable splenomegaly. 4. Additional incidental findings as described. I discussed the case with Dr. Moon, hospitalist, who accepted the pt for admission. - Diagnoses Provider Diagnoses: UTI (urinary tract infection), Sepsis - Provider Notifications Discussed Care Of Patient With: Joel Moon Time Discussed With Above Provider: 21:54 Instructed by Provider To: Admit As Inpatient Discharge - Sign-Out/Discharge Documenting (check all that apply): Patient Departure - Admit to [facility] - Discharge Plan Condition: Stable Disposition: ADMITTED TO [facility] Referrals: Néstor Mitchell MD [Primary Care Provider] - - Attestation Statements Document Initiated by Scribe: Yes Documenting Scribe: Vernell Huddleston Provider For Whom Scribe is Documenting (Include Credential): Dr. Ashwin Quiñones MD Scribe Attestation: Vernell Ross, scribed for Dr. Ashwin Quiñones MD on 05/15/18 at 2210.
[2018-05-15 20:12] LABS: ABS Basophils 0 10^3/ul (0-0.2); ABS Eosinophils 0 10^3/ul (0-0.6); ABS Lymphocytes 0.5 10^3/ul (1.0-4.8); ABS Monocytes 0.4 10^3/ul (0-0.8); ABS Neutrophils 4.9 10^3/ul (1.5-7.7); ABS Nucleated RBC 0 10^3/ul; Eosinophil % 0.6 % (0-6); Hematocrit 25 % (42-52); Hemoglobin 8.1 g/dl (14.0-18.0); Lymphocyte % 8.5 % (25-47); Mean Corpuscular HGB Conc 33 g/dl (31-36); Mean Corpuscular Hemoglobin 25 pg (27-31); Mean Corpuscular Volume 76 fL (80-94); Mean Platelet Volume 6.9 um3 (7.4-10.4); Nucleated Red Blood Cells % 0; Platelet Count 178 10^3/ul (150-450); Red Blood Count 3.27 10^6/ul (4.00-5.40); Red Cell Distribution Width 18 % (10.5-15); White Blood Count 5.8 10^3/ul (3.5-10.8)
[2018-05-15] MEDS: NS 0.9% 1000 ML* 2,400 ML IV ONE (20:20)
[2018-05-15 20:29] LABS: EGFR Non-African American 100.4 (>60)
[2018-05-15 20:31] LABS: INR 1.26 (0.77-1.02)
[2018-05-15 20:33] LABS: Urine Appearance Turbid; Urine Blood 3+ (Negative); Urine Color Yellow; Urine Ketones Negative (Negative); Urine Protein 2+(100 mg/dL) (Negative); Urine Red Blood Cell 3+(>10/hpf) (Absent); Urine Specific Gravity 1.011 (1.010-1.030); Urine Urobilinogen Negative (Negative); Urine White Blood Cell 3+(>20/hpf) (Absent)
[2018-05-15] MEDS ORDERED: Iodixanol* (CONTRAST) 320 MG/ML 100 ML SDV IV ONE (20:48)
--- NOTE | 2018-05-15 21:45 | RAD ---
EXAM: CT Abdomen and Pelvis With Intravenous Contrast CLINICAL HISTORY: 57 years old, male; Pain; Abdominal pain; Flank; Right lower quadrant (rlq); Prior surgery; Surgery date: 6+ months; Surgery type: Rlq abdominal scar identified. Pt is a poor historian. ; Additional info: Abd pain. Iv contrast only per provider TECHNIQUE: Axial computed tomography images of the abdomen and pelvis with intravenous contrast. All CT scans at this facility use at least one of these dose optimization techniques: automated exposure control; mA and/or kV adjustment per patient size (includes targeted exams where dose is matched to clinical indication); or iterative reconstruction. Coronal and sagittal reformatted images were created and reviewed. CONTRAST: 99 mL of [id number] administered intravenously. COMPARISON: A/P WO CT ABD/PEL W/O 02/07/2018 6:31 PM FINDINGS: Lung bases: Normal. No mass. No consolidation. ABDOMEN: Liver: Normal. No masses. Portal and hepatic veins are patent. Gallbladder and bile ducts: Tiny calcified gallstones. No wall thickening or pericholecystic fluid. Pancreas: Normal. No mass. No ductal dilation. Spleen: Marked splenomegaly measuring 1336 cc, similar to prior study. Adrenals: Normal. No mass. Kidneys and ureters: Left nephrostomy tube and double-J left ureteral stent are again identified in similar position. Persistent mild left pelvocaliectasis with peripelvic and periureteral stranding proximally similar to prior study. Associated delayed enhancement of the left kidney. Large calculi encase the right renal pelvis and several calyces similar compared to prior study. No right pelvocaliectasis. Stomach and bowel: Incompletely distended grossly normal stomach. Normal caliber small bowel. No colonic masses or segmental wall thickening. PELVIS: Appendix: Surgically absent appendix. Bladder: Thin-walled bladder with no focal nodularity, perivesicular stranding, or calcifications. Reproductive: Normal sized prostate. Normal seminal vesicles. ABDOMEN and PELVIS: Intraperitoneal space: Normal. No pneumoperitoneum. No ascities. Bones/joints: The spine demonstrates mild degenerative changes at multiple levels. Moderate bilateral hip primary osteoarthritis. No fractures. No suspicious bone lesions. Soft tissues: Small fat containing erect left inguinal hernia. No stranding. Vasculature: The aorta demonstrates mild atherosclerotic calcification. Patent IVC. No abdominal aortic aneurysm. Lymph nodes: Normal. No enlarged lymph nodes. IMPRESSION: 1. No CT findings to correlate with patient's symptomatology. 2. Persistent right staghorn calculus and left pelvocaliectasis with indwelling nephrostomy and left double-J ureteral stent. 3. Persistent relatively stable splenomegaly. 4. Additional incidental findings as described.
[2018-05-15 22:23] LABS: Urine Appearance Cloudy; Urine Blood 2+ (Negative); Urine Color Yellow; Urine Ketones Negative (Negative); Urine Protein 1+(30 mg/dL) (Negative); Urine Red Blood Cell 2+(6-10/hpf) (Absent); Urine Specific Gravity 1.012 (1.010-1.030); Urine Urobilinogen Negative (Negative); Urine White Blood Cell 3+(>20/hpf) (Absent)
--- NOTE | 2018-05-15 22:34 | HP ---
H&P (Free Text) History and Physical: PCP: 05/15/20182219 Date/Time: 05/15/20182219 CC: fever HPI: Mr Robledo is a 57YO male HX L nephrostomy, colon CA, iron deficiency anemia , CVA, DM2, HTN, CAD, paraplegia, cerebellar ataxia, HLD, & low cognitive function who is unable to give an accurate history. He knows he is in the hospital, but when asked why replies in simple terms, "I'm sick", "my back", etc. Per records he was sent from [facility] for fever & RLQ pain. Temperature on arrival was 101.3F and foul smelling cloudy urine was draining from his L urostomy. CT abd/pel is unremarkable. PMedHx L nephrostomy colon CA iron deficiency anemia CVA DM2 HTN CAD paraplegia cerebellar ataxia HLD low cognitive function Ambulatory Orders Acetaminophen [Acetaminophen Extra Strength] 1,000 mg PO BID 02/07/18 Aspirin EC TAB* [Ecotrin EC Low Dose 81 MG*] 81 mg PO DAILY 02/07/18 HYDROcodone/ACETAMIN 5-325 MG* [[place] 5-325 TAB*] 1 tab PO Q8HR PRN 02/07/18 Insulin GLARGINE(*) [Lantus(*)] 5 units SUBCUT BEDTIME 02/07/18 Metoprolol Succinate XL TAB* [Toprol XL TAB*] 25 mg PO QPM 02/07/18 Ranitidine TAB (NF) [Zantac TAB (NF)] 300 mg PO BEDTIME 02/07/18 Sertraline* [Zoloft*] 100 mg PO DAILY 02/07/18 Atorvastatin* [Lipitor*] 10 mg PO BEDTIME 03/27/18 Ferrous Sulfate TAB* 325 mg PO QPM 03/27/18 Melatonin (NF) 3 mg PO BEDTIME PRN 03/27/18 Cholecalciferol (Vitamin D3) [Vitamin D3] 5,000 unit PO MONTHLY 05/15/18 Triamcinolone 0.1% CREAM (NF) [Kenalog 0.1% Cream (NF)] 1 applic TOPICAL TID 02/24 Allergies clindamycin Allergy (Intermediate, Verified 05/04/18 18:59) Unknown Reaction Details Penicillins Allergy (Intermediate, Verified 05/04/18 18:59) Unknown Reaction Details PSurgHx unobtainable SocHx: resides at [facility]; DNR/I code status; otherwise unobtainable FamHx: unobtainable ROS: as above, otherwise reviewed and all were negative vitals: Vital Signs Temp 38.5 C 05/15/18 19:03 Pulse 68 05/16/18 00:01 Resp 15 05/16/18 00:01 BP 124/95 05/16/18 00:01 Pulse Ox 93 05/16/18 00:01 Intake & Output 05/15/18 05/15/18 05/16/18 11:59 23:59 11:59 Intake Total 2650 Balance 2650 Weight 79.379 kg Intake: IV Fluids 2650 Constitutional: NAD, normally developed, well-nourished chronically ill appearing white male HEENM: atraumatic; sclera/conjunctiva: anicteric/clear; hearing: unable to fully assess; oropharynx: clear, mucosa tacky Neck: soft tissue: no nuchal rigidity; thyroid: normal Pulmonary: clear to auscultation bilaterally, good aeration, no accessory muscle use CV: RR/RR, normal S1S2, no carotid bruit, no jugular venous distention, 1+ B DP/ PT, trace BLE edema Abdominal: soft, non-distended, non-tender, no rebound/guarding/rigidity, normoactive bowel sounds, no hepatosplenomegaly or masses, no costovertebral angle tenderness Musculoskeletal: general: grossly intact, non-tender Integumental: boggy heels B, mild changes of venous stasis BLE, coccygeal erythema Psychiatric orientation: AA&O to PP, not time/situation affect: lethargic mood: acquiescent eye contact: poor content: minimal, unreliable responses: slowed insight: poor Testing: Lab Results 05/15/18 05/15/18 05/15/18 Range/Units 20:05 20:05 20:05 WBC 5.8 (3.5-10.8) 10^3/ul RBC 3.27 L (4.00-5.40) 10^6/ul Hgb 8.1 L (14.0-18.0) g/dl Hct 25 L (42-52) % MCV 76 L (80-94) fL MCH 25 L (27-31) pg MCHC 33 (31-36) g/dl RDW 18 H (10.5-15) % Plt Count 178 (150-450) 10^3/ul MPV 6.9 L (7.4-10.4) um3 Neut % (Auto) 83.5 H (38-83) % Lymph % (Auto) 8.5 L (25-47) % Heard % (Auto) 7.1 H (0-7) % Eos % (Auto) 0.6 (0-6) % Baso % (Auto) 0.3 (0-2) % Absolute Neuts (auto) 4.9 (1.5-7.7) 10^3/ul Absolute Lymphs (auto) 0.5 L (1.0-4.8) 10^3/ul Absolute Monos (auto) 0.4 (0-0.8) 10^3/ul Absolute Eos (auto) 0 (0-0.6) 10^3/ul Absolute Basos (auto) 0 (0-0.2) 10^3/ul Absolute Nucleated RBC 0 10^3/ul Nucleated RBC % 0 INR (Anticoag Therapy) 1.26 H (0.77-1.02) APTT 36.6 H (26.0-36.3) seconds Sodium (135-145) mmol/L Potassium (3.5-5.0) mmol/L Chloride (101-111) mmol/L Carbon Dioxide (22-32) mmol/L Anion Gap (2-11) mmol/L BUN (6-24) mg/dL Creatinine (0.67-1.17) mg/dL Est GFR ( Amer) (>60) Est GFR (Non-Af Amer) (>60) BUN/Creatinine Ratio (8-20) Glucose (70-100) mg/dL Lactic Acid (0.5-2.0) mmol/L Calcium (8.6-10.3) mg/dL Total Bilirubin (0.2-1.0) mg/dL AST (13-39) U/L ALT (7-52) U/L Alkaline Phosphatase (34-104) U/L Troponin I (<0.04) ng/mL C-Reactive Protein (<8.01) mg/L Total Protein (6.4-8.9) g/dL Albumin (3.2-5.2) g/dL Globulin (2-4) g/dL Albumin/Globulin Ratio (1-3) Procalcitonin (<0.6) ng/mL Urine Color Yellow Urine Appearance Turbid Urine pH 5.0 (5-9) Ur Specific [place] 1.011 (1.010-1.030) Urine Protein 2+(100 mg/dl) A (Negative) Urine Ketones Negative (Negative) Urine Blood 3+ A (Negative) Urine Nitrate Negative (Negative) Urine Bilirubin Negative (Negative) Urine Urobilinogen Negative (Negative) Ur Leukocyte Esterase 3+ A (Negative) Urine WBC (Auto) 3+(>20/hpf) A (Absent) Urine RBC (Auto) 3+(>10/hpf) A (Absent) Ur Squamous Epith Cells (Absent) Urine Bacteria Absent (Absent) Urine Yeast Present A (Absent) Urine Glucose Negative (Negative) 05/15/18 05/15/18 05/15/18 Range/Units 20:05 20:05 20:05 WBC (3.5-10.8) 10^3/ul RBC (4.00-5.40) 10^6/ul Hgb (14.0-18.0) g/dl Hct (42-52) % MCV (80-94) fL MCH (27-31) pg MCHC (31-36) g/dl RDW (10.5-15) % Plt Count (150-450) 10^3/ul MPV (7.4-10.4) um3 Neut % (Auto) (38-83) % Lymph % (Auto) (25-47) % Heard % (Auto) (0-7) % Eos % (Auto) (0-6) % Baso % (Auto) (0-2) % Absolute Neuts (auto) (1.5-7.7) 10^3/ul Absolute Lymphs (auto) (1.0-4.8) 10^3/ul Absolute Monos (auto) (0-0.8) 10^3/ul Absolute Eos (auto) (0-0.6) 10^3/ul Absolute Basos (auto) (0-0.2) 10^3/ul Absolute Nucleated RBC 10^3/ul Nucleated RBC % INR (Anticoag Therapy) (0.77-1.02) APTT (26.0-36.3) seconds Sodium 141 (135-145) mmol/L Potassium 3.2 L (3.5-5.0) mmol/L Chloride 105 (101-111) mmol/L Carbon Dioxide 30 (22-32) mmol/L Anion Gap 6 (2-11) mmol/L BUN 13 (6-24) mg/dL Creatinine 0.79 (0.67-1.17) mg/dL Est GFR ( Amer) 121.5 (>60) Est GFR (Non-Af Amer) 100.4 (>60) BUN/Creatinine Ratio 16.5 (8-20) Glucose 112 H (70-100) mg/dL Lactic Acid 1.0 (0.5-2.0) mmol/L Calcium 8.0 L (8.6-10.3) mg/dL Total Bilirubin 0.50 (0.2-1.0) mg/dL AST 5 L (13-39) U/L ALT 3 L (7-52) U/L Alkaline Phosphatase 79 (34-104) U/L Troponin I 0.01 (<0.04) ng/mL C-Reactive Protein 78.70 H (<8.01) mg/L Total Protein 6.3 L (6.4-8.9) g/dL Albumin 2.8 L (3.2-5.2) g/dL Globulin 3.5 (2-4) g/dL Albumin/Globulin Ratio 0.8 L (1-3) Procalcitonin 0.3 (<0.6) ng/mL Urine Color Urine Appearance Urine pH (5-9) Ur Specific [place] (1.010-1.030) Urine Protein (Negative) Urine Ketones (Negative) Urine Blood (Negative) Urine Nitrate (Negative) Urine Bilirubin (Negative) Urine Urobilinogen (Negative) Ur Leukocyte Esterase (Negative) Urine WBC (Auto) (Absent) Urine RBC (Auto) (Absent) Ur Squamous Epith Cells (Absent) Urine Bacteria (Absent) Urine Yeast (Absent) Urine Glucose (Negative) 05/15/18 Range/Units 22:04 WBC (3.5-10.8) 10^3/ul RBC (4.00-5.40) 10^6/ul Hgb (14.0-18.0) g/dl Hct (42-52) % MCV (80-94) fL MCH (27-31) pg MCHC (31-36) g/dl RDW (10.5-15) % Plt Count (150-450) 10^3/ul MPV (7.4-10.4) um3 Neut % (Auto) (38-83) % Lymph % (Auto) (25-47) % Heard % (Auto) (0-7) % Eos % (Auto) (0-6) % Baso % (Auto) (0-2) % Absolute Neuts (auto) (1.5-7.7) 10^3/ul Absolute Lymphs (auto) (1.0-4.8) 10^3/ul Absolute Monos (auto) (0-0.8) 10^3/ul Absolute Eos (auto) (0-0.6) 10^3/ul Absolute Basos (auto) (0-0.2) 10^3/ul Absolute Nucleated RBC 10^3/ul Nucleated RBC % INR (Anticoag Therapy) (0.77-1.02) APTT (26.0-36.3) seconds Sodium (135-145) mmol/L Potassium (3.5-5.0) mmol/L Chloride (101-111) mmol/L Carbon Dioxide (22-32) mmol/L Anion Gap (2-11) mmol/L BUN (6-24) mg/dL Creatinine (0.67-1.17) mg/dL Est GFR ( Amer) (>60) Est GFR (Non-Af Amer) (>60) BUN/Creatinine Ratio (8-20) Glucose (70-100) mg/dL Lactic Acid (0.5-2.0) mmol/L Calcium (8.6-10.3) mg/dL Total Bilirubin (0.2-1.0) mg/dL AST (13-39) U/L ALT (7-52) U/L Alkaline Phosphatase (34-104) U/L Troponin I (<0.04) ng/mL C-Reactive Protein (<8.01) mg/L Total Protein (6.4-8.9) g/dL Albumin (3.2-5.2) g/dL Globulin (2-4) g/dL Albumin/Globulin Ratio (1-3) Procalcitonin (<0.6) ng/mL Urine Color Yellow Urine Appearance Cloudy Urine pH 6.0 (5-9) Ur Specific [place] 1.012 (1.010-1.030) Urine Protein 1+(30 mg/dl) A (Negative) Urine Ketones Negative (Negative) Urine Blood 2+ A (Negative) Urine Nitrate Positive A (Negative) Urine Bilirubin Negative (Negative) Urine Urobilinogen Negative (Negative) Ur Leukocyte Esterase 3+ A (Negative) Urine WBC (Auto) 3+(>20/hpf) A (Absent) Urine RBC (Auto) 2+(6-10/hpf) A (Absent) Ur Squamous Epith Cells Present A (Absent) Urine Bacteria Absent (Absent) Urine Yeast Present A (Absent) Urine Glucose Negative (Negative) ECG, personally reviewed: no acute process CXR, personally reviewed: IMPRESSION: 1. No CT findings to correlate with patient's symptomatology. 2. Persistent right staghorn calculus and left pelvocaliectasis with indwelling nephrostomy and left double-J ureteral stent. 3. Persistent relatively stable splenomegaly. 4. Additional incidental findings as described. Impression: 57M HX L nephrostomy, colon CA, iron deficiency anemia, CVA, DM2, HTN, CAD, paraplegia, cerebellar ataxia, HLD, & low cognitive function presents with sepsis (fever & tachypnea) 2nd L pyelonephritis w/ functioning L nephrostomy DIAGNOSIS & PLAN Primary sepsis (fever & tachypnea) 2nd L pyelonephritis w/ functioning L nephrostomy : L ureteral stent : recent urine CXs + for E faecalis & P aeruginosa sensitive to vancomycine & cefepime : IV vancomycin & cefepime : blood & urine CXs : IVFs : supportive care Secondary HX colon CA : no acute issues CVA : continue aspirin DM2 : check A1c : NPO until swallowing eval passed : consistent carb diet : correctional insulin HTN : continue metoprolol HLD : continue atorvastatin : heart healthy diet CAD : continue aspirin paraplegia : no acute issues cerebellar ataxia : no acute issues low cognitive function : no acute issues GERD : continue ranitidine Admission Rational: Inpatient as without the above interventions the risk of impending adverse outcome is unacceptably high; inappropriate for the outpatient setting DVTp: SCDs & heparin SQ Code Status: DNR/I HCP: Keily kinsey Critical Care time: 50minutes with >50% spent at the bedside obtaining a history , performing the examination, advising of diagnosis & treatment options along with risks/benefits/reasoning; remainder spent discussing with ER MD, reviewing labs and radiology exams
[2018-05-15] MEDS ORDERED: Ondansetron ODT TAB* 4 MG PO PRN (22:47)
[2018-05-15] MEDS ORDERED: Melatonin 3 MG TAB PO PRN (22:47)
[2018-05-15] MEDS ORDERED: Acetaminophen TAB* 325 MG PO PRN (22:47)
[2018-05-15] MEDS ORDERED: Vancomycin per Pharmacy* NOTE FOLLOW UP SCH (23:00)
[2018-05-15] MEDS ORDERED: Cefepime(*) 1 GM in NS 0.9% 50 ML* 50 ML IVPB SCH (23:00)
[2018-05-15] MEDS ORDERED: NS 0.9% 1000 ML* 1,000 ML IV SCH (23:00)
[2018-05-16] MEDS ORDERED: HYDROcodone/ACETAMIN 5-325 MG* 1 TAB PO PRN (00:32)
[2018-05-16] MEDS ORDERED: Melatonin 3 MG TAB PO PRN (00:32)
[2018-05-16] MEDS: Cefepime 1 GM in Dextrose(*) 1 GM/50 ML BAG IV SCH ×3 (01:36→22:49)
[2018-05-16] MEDS: Vancomycin(*) 1,000 MG in NS 0.9% 250 ML* 250 ML IVPB SCH ×2 (06:28→18:22)
[2018-05-16] MEDS: Heparin VIAL(*) 5000 UNITS/ML VIAL (FIVE THOUSAND) SUBCUT SCH ×3 (06:32→21:56)
[2018-05-16] MEDS: Omeprazole CAP* 20 MG PO SCH (06:32)
--- NOTE | 2018-05-16 07:53 | RAD ---
HISTORY: SOB COMPARISONS: February 07, 2018 VIEWS: 1: frontal portable view of the chest at 7:25 PM FINDINGS: LINES AND TUBES: None. CARDIOMEDIASTINAL SILHOUETTE: The cardiomediastinal silhouette is normal for portable technique. PLEURA: The costophrenic angles are sharp. No pleural abnormalities are noted. LUNG PARENCHYMA: The lungs are clear. ABDOMEN: The upper abdomen is clear. There is no subphrenic gas. BONES AND SOFT TISSUES: No bone or soft tissue abnormalities are noted. IMPRESSION: NO ACTIVE CARDIOPULMONARY DISEASE. R0
[2018-05-16] MEDS: Sertraline* 100 MG TAB PO SCH (08:53)
[2018-05-16] MEDS: Insulin LISPRO* 1 UNITS UNIT SUBCUT SCH ×4 (08:53→21:56)
[2018-05-16] MEDS: Docusate CAP* 100 MG PO SCH ×2 (08:53→21:56)
[2018-05-16] MEDS: Aspirin EC TAB* 81 MG TAB.EC PO SCH (08:53)
[2018-05-16 09:11] LABS: ABS Basophils 0 10^3/ul (0-0.2); ABS Eosinophils 0.1 10^3/ul (0-0.6); ABS Lymphocytes 0.2 10^3/ul (1.0-4.8); ABS Monocytes 0.2 10^3/ul (0-0.8); ABS Nucleated RBC 0 10^3/ul; Hematocrit 25 % (42-52); Hemoglobin 8.2 g/dl (14.0-18.0); Lymphocyte % 2.5 % (25-47); Mean Corpuscular HGB Conc 32 g/dl (31-36); Mean Corpuscular Hemoglobin 24 pg (27-31); Mean Corpuscular Volume 76 fL (80-94); Nucleated Red Blood Cells % 0; Platelet Count 173 10^3/ul (150-450); Red Blood Count 3.35 10^6/ul (4.00-5.40); Red Cell Distribution Width 18 % (10.5-15); White Blood Count 7.5 10^3/ul (3.5-10.8)
[2018-05-16] MEDS ORDERED: Ondansetron INJ* 2 MG/ML VIAL IV PRN (09:15)
[2018-05-16 09:20] LABS: EGFR Non-African American 113.6 (>60)
[2018-05-16] MEDS ORDERED: KCL 20 MEQ/100 ML IVPREMIX* 20 MEQ/100 ML BAG IV ONE (11:43)
--- NOTE | 2018-05-16 16:18 | PN ---
Subjective Date of Service: 05/16/18 Interval History: Patient seen and examined at bedside. Reports right foot pain, but denies chest pain, palpitations, fever or chills. Had some nausea this morning, better now, feels hungry and requesting lunch. Dr. Loja contacted me earlier, would like us to d/c his Vanco, since psuedomonas in previous urine Cx has been sensitive to Cefepime, and due to shortage in IV Vanco at this time. Family History: Unchanged from Admission Social History: Unchanged from Admission Past Medical History: Unchanged from Admission Objective Active Medications: Acetaminophen (Tylenol Tab*) 650 mg PO Q6H PRN PRN Reason: FEVER/PAIN Hydrocodone Bitart/Acetaminophen ([place] 5-325 Tab*) 1 tab PO Q8HR PRN PRN Reason: PAIN Aspirin (Aspirin Ec Tab*) 81 mg PO DAILY [facility] Last Admin: 05/16/18 08:53 Dose: 81 mg Atorvastatin Calcium (Lipitor*) 10 mg PO BEDTIME [facility] Docusate Sodium (Colace Cap*) 200 mg PO BID [facility] Last Admin: 05/16/18 08:53 Dose: 200 mg Famotidine (Pepcid Tab*) 40 mg PO BEDTIME [facility]; Protocol Heparin Sodium (Porcine) (Heparin Vial(*)) 5,000 units SUBCUT Q8HR [facility] Last Admin: 05/16/18 14:48 Dose: 5,000 units Sodium Chloride (Ns 0.9% 1000 Ml*) 1,000 mls @ 75 mls/hr IV PER RATE [facility] Cefepime HCl (Maxipime 1 Gm In Dextrose Duplex (*)) 1 gm in 50 mls @ 100 mls/ hr IV Q12H [facility] Last Admin: 05/16/18 14:48 Dose: 100 mls/hr Insulin Human Lispro (Humalog*) 0 units SUBCUT ACHS [facility]; Protocol Last Admin: 05/16/18 12:29 Dose: Not Given Melatonin (Melatonin) 3 mg PO BEDTIME PRN PRN Reason: INSOMNIA Metoprolol Succinate (Toprol Xl Tab*) 25 mg PO QPM [facility] Omeprazole (Prilosec Cap*) 20 mg PO DAILY@0600 [facility] Last Admin: 05/16/18 06:32 Dose: 20 mg Ondansetron HCl (Zofran Inj*) 4 mg IV Q6H PRN PRN Reason: NAUSEA Sertraline HCl (Zoloft*) 100 mg PO DAILY [facility] Last Admin: 05/16/18 08:53 Dose: 100 mg Oxygen Devices in Use Now: None, Other Appearance: Appears comfortable and in NAD. Not a good historain. Eyes: No Scleral Icterus, PERRLA Ears/Nose/Mouth/Throat: Clear Oropharnyx, Mucous Membranes Moist Neck: Trachea Midline Respiratory: Symmetrical Chest Expansion and Respiratory Effort, Clear to Auscultation Cardiovascular: NL Sounds; No Murmurs; No JVD, RRR Abdominal: NL Sounds; No Tenderness; No Distention Extremities: No Edema Neurological: Alert and Oriented x 3 Nutrition: Taking PO's Result Diagrams: 05/16/18 08:50 05/16/18 08:50 Additional Lab and Data: . Microbiology and Other Data: Microbiology 05/16/18 00:57 Nasal Screen MRSA (PCR) - Final Nasal Mrsa Detected Diagnostic Imaging: [facility] Patient Name:QIANA MEHTA MR:[id number] : 1960 CT abdomen and pelvis with the following: IMPRESSION: 1. No CT findings to correlate with patient's symptomatology. 2. Persistent right staghorn calculus and left pelvocaliectasis with indwelling nephrostomy and left double-J ureteral stent. 3. Persistent relatively stable splenomegaly. 4. Additional incidental findings as described. <Electronically signed by Chantal Phan MD in [place]> 05/15/18 9035 EKG Data: . Assess/Plan/Problems-Billing Assessment: A 57 y/o male with complicated PMH, who presented to ED with fever and foul smelling urine form L nephrostomy tube, found to have sepsis and pyelonephritis with functioning nephrostomy tube. - Patient Problems (1) Sepsis Current Visit: Yes Status: Acute Comment: - Likely secondary to UTI/pyelonephritis - L nephrostomy tube is working well - Continue Cefepime, Vanco on hold per ID recommendations pending urine culture - Continue IVF (2) Diabetes mellitus Current Visit: Yes Status: Acute Comment: - Good glycemic control - HgA1C 4.1 (3) HTN (hypertension) Current Visit: Yes Status: Acute Comment: - Continue Metoprolol (4) Hyperlipidemia Current Visit: Yes Status: Acute Comment: - Continue Atrovastatin (5) Cerebral ataxia Current Visit: Yes Status: Acute Comment: - No acute issues (6) Paraplegia Current Visit: Yes Status: Acute Comment: - No acute issues - Supportive care, turning patient frequently (7) CAD (coronary artery disease) Current Visit: Yes Status: Acute Comment: - Continue Aspirin (8) History of CVA (cerebrovascular accident) Current Visit: Yes Status: Acute Comment: - Continue Aspirin (9) DVT prophylaxis Current Visit: Yes Status: Acute Comment: - SCDs and SubQ Heparin (10) DNR (do not resuscitate) Current Visit: Yes Status: Acute Status and Disposition: Inpatient. Anticipate discharge once medically stable.
[2018-05-16] MEDS: Metoprolol Succinate XL TAB* 25 MG PO SCH (18:25)
[2018-05-16] MEDS ORDERED: Vancomycin Trough Check NOTE FOLLOW UP ONE (20:30)
[2018-05-16] MEDS: Atorvastatin* 10 MG TAB PO SCH (21:57)
[2018-05-16] MEDS: Famotidine TAB* 20 MG PO SCH (21:57)
[2018-05-17] MEDS: Heparin VIAL(*) 5000 UNITS/ML VIAL (FIVE THOUSAND) SUBCUT SCH ×3 (06:06→22:38)
[2018-05-17] MEDS: Omeprazole CAP* 20 MG PO SCH (06:07)
[2018-05-17 06:44] LABS: ABS Basophils 0 10^3/ul (0-0.2); ABS Eosinophils 0.2 10^3/ul (0-0.6); ABS Lymphocytes 0.3 10^3/ul (1.0-4.8); ABS Monocytes 0.2 10^3/ul (0-0.8); ABS Neutrophils 9.4 10^3/ul (1.5-7.7); ABS Nucleated RBC 0 10^3/ul; Eosinophil % 2.4 % (0-6); Hematocrit 27 % (42-52); Hemoglobin 8.9 g/dl (14.0-18.0); Lymphocyte % 3.1 % (25-47); Mean Corpuscular HGB Conc 33 g/dl (31-36); Mean Corpuscular Hemoglobin 24 pg (27-31); Mean Corpuscular Volume 75 fL (80-94); Mean Platelet Volume 7.4 um3 (7.4-10.4); Nucleated Red Blood Cells % 0; Platelet Count 168 10^3/ul (150-450); Red Blood Count 3.65 10^6/ul (4.00-5.40); Red Cell Distribution Width 18 % (10.5-15); White Blood Count 10.2 10^3/ul (3.5-10.8)
[2018-05-17 06:57] LABS: EGFR Non-African American 97.5 (>60)
[2018-05-17] MEDS: Insulin LISPRO* 1 UNITS UNIT SUBCUT SCH ×4 (10:09→22:37)
[2018-05-17] MEDS: Sertraline* 100 MG TAB PO SCH (10:10)
[2018-05-17] MEDS: Aspirin EC TAB* 81 MG TAB.EC PO SCH (10:10)
[2018-05-17] MEDS: Docusate CAP* 100 MG PO SCH ×2 (10:10→22:36)
[2018-05-17] MEDS: Cefepime 1 GM in Dextrose(*) 1 GM/50 ML BAG IV SCH (12:38)
--- NOTE | 2018-05-17 15:27 | PN ---
Subjective Date of Service: 05/17/18 Interval History: Patient is able to respond to all questions but refuses to open eyes. Denies Pain, SOB, Abdominal pain, diarrhea, CP, N/V, F/C, dizziness, palpitations, or other pain. Family History: Unchanged from Admission Social History: Unchanged from Admission Past Medical History: Unchanged from Admission Objective Active Medications: Acetaminophen (Tylenol Tab*) 650 mg PO Q6H PRN PRN Reason: FEVER/PAIN Hydrocodone Bitart/Acetaminophen ([place] 5-325 Tab*) 1 tab PO Q8HR PRN PRN Reason: PAIN Aspirin (Aspirin Ec Tab*) 81 mg PO DAILY [facility] Last Admin: 05/17/18 10:10 Dose: 81 mg Atorvastatin Calcium (Lipitor*) 10 mg PO BEDTIME [facility] Last Admin: 05/16/18 21:57 Dose: Not Given Docusate Sodium (Colace Cap*) 200 mg PO BID [facility] Last Admin: 05/17/18 10:10 Dose: 200 mg Famotidine (Pepcid Tab*) 40 mg PO BEDTIME [facility]; Protocol Last Admin: 05/16/18 21:57 Dose: Not Given Heparin Sodium (Porcine) (Heparin Vial(*)) 5,000 units SUBCUT Q8HR [facility] Last Admin: 05/17/18 15:02 Dose: 5,000 units Sodium Chloride (Ns 0.9% 1000 Ml*) 1,000 mls @ 75 mls/hr IV PER RATE [facility] Cefepime HCl (Maxipime 1 Gm In Dextrose Duplex (*)) 1 gm in 50 mls @ 100 mls/ hr IV Q12H [facility] Last Admin: 05/17/18 12:38 Dose: 100 mls/hr Insulin Human Lispro (Humalog*) 0 units SUBCUT ACHS [facility]; Protocol Last Admin: 05/17/18 12:40 Dose: 1 units Melatonin (Melatonin) 3 mg PO BEDTIME PRN PRN Reason: INSOMNIA Metoprolol Succinate (Toprol Xl Tab*) 25 mg PO QPM [facility] Last Admin: 05/16/18 18:25 Dose: 25 mg Omeprazole (Prilosec Cap*) 20 mg PO DAILY@0600 [facility] Last Admin: 05/17/18 06:07 Dose: Not Given Ondansetron HCl (Zofran Inj*) 4 mg IV Q6H PRN PRN Reason: NAUSEA Sertraline HCl (Zoloft*) 100 mg PO DAILY [facility] Last Admin: 05/17/18 10:10 Dose: 100 mg Vital Signs - 8 hr 05/17/18 05/17/18 08:00 08:15 Temperature 98.2 F Pulse Rate 78 Respiratory 18 18 Rate Blood Pressure 107/53 (mmHg) O2 Sat by Pulse 98 100 Oximetry Oxygen Devices in Use Now: None Appearance: Patient is a 57yo emaciated male who appears older than stated age and is sitting in the bed in NAD. Eyes: - - Unwilling to open eyes. Ears/Nose/Mouth/Throat: NL Teeth, Lips, Gums, Clear Oropharnyx, Mucous Membranes Moist Neck: NL Appearance and Movements; NL JVP, Trachea Midline Respiratory: Symmetrical Chest Expansion and Respiratory Effort, Clear to Auscultation Cardiovascular: NL Sounds; No Murmurs; No JVD, RRR, No Edema Abdominal: No Hepatosplenomegaly, - - Distended. At baseline. Nephrostomy tube draining purulent fluid. Lymphatic: No Cervical Adenopathy Extremities: No Edema Skin: No Rash or Ulcers, No Nodules or Sclerosis Neurological: Alert and Oriented x 3, NL Sensation, NL Muscle Strength and Tone , - - CN II-XII intact. Result Diagrams: 05/17/18 06:24 05/17/18 06:24 Additional Lab and Data: . Microbiology and Other Data: Microbiology 05/16/18 00:57 Nasal Screen MRSA (PCR) - Final Nasal Mrsa Detected Diagnostic Imaging: [facility] Patient Name:QIANA MEHTA MR:[id number] : 1960 CT abdomen and pelvis with the following: IMPRESSION: 1. No CT findings to correlate with patient's symptomatology. 2. Persistent right staghorn calculus and left pelvocaliectasis with indwelling nephrostomy and left double-J ureteral stent. 3. Persistent relatively stable splenomegaly. 4. Additional incidental findings as described. <Electronically signed by Chantal Phan MD in [place]> 05/15/18 1471 EKG Data: . Assess/Plan/Problems-Billing Assessment: A 57 y/o male with complicated PMH, who presented to ED with fever and foul smelling urine form L nephrostomy tube, found to have sepsis and pyelonephritis with functioning nephrostomy tube. - Patient Problems (1) Sepsis Current Visit: Yes Status: Acute Comment: - Likely secondary to UTI/pyelonephritis - L nephrostomy tube is working well - Continue Cefepime - Urine culture grew pseudomonas and E coli - Will need to follow up with Urologist outpatient. (2) CAD (coronary artery disease) Current Visit: Yes Status: Acute Code(s): I25.10 - ATHSCL HEART DISEASE OF [place] CORONARY ARTERY W/O ANG PCTRS SNOMED Code(s): 76438164 Comment: - Continue Aspirin and Lipitor - No Chest Pain (3) Diabetes mellitus Current Visit: Yes Status: Acute Code(s): E11.9 - TYPE 2 DIABETES MELLITUS WITHOUT COMPLICATIONS SNOMED Code(s): 30184812 Comment: - Very good glycemic control - HgA1C 4.1 (4) HTN (hypertension) Current Visit: Yes Status: Acute Code(s): I10 - ESSENTIAL (PRIMARY) HYPERTENSION SNOMED Code(s): 33589235 Comment: - Continue Metoprolol - Normotensive (5) History of CVA (cerebrovascular accident) Current Visit: Yes Status: Acute Code(s): Z86.73 - PRSNL HX OF TIA (TIA), AND CEREB INFRC W/O RESID DEFICITS SNOMED Code(s): 642532056 Comment: - Continue Aspirin and Lipitor (6) Hyperlipidemia Current Visit: Yes Status: Acute Code(s): E78.5 - HYPERLIPIDEMIA, UNSPECIFIED SNOMED Code(s): 45410891 Comment: - Continue Atrovastatin (7) Cerebral ataxia Current Visit: Yes Status: Acute Code(s): G11.9 - HEREDITARY ATAXIA, UNSPECIFIED SNOMED Code(s): 30904653 Comment: - No acute issues (8) Paraplegia Current Visit: Yes Status: Acute Code(s): G82.20 - PARAPLEGIA, UNSPECIFIED SNOMED Code(s): 22479455 Comment: - No acute issues - Supportive care, turning patient frequently (9) DVT prophylaxis Current Visit: Yes Status: Acute Code(s): CSD2762 - SNOMED Code(s): 524362089 Comment: - SCDs and SubQ Heparin (10) DNR (do not resuscitate) Current Visit: Yes Status: Acute Status and Disposition: Inpatient. Anticipate discharge once medically stable.
[2018-05-17] MEDS: Metoprolol Succinate XL TAB* 25 MG PO SCH (18:33)
[2018-05-17] MEDS: Atorvastatin* 10 MG TAB PO SCH (22:37)
[2018-05-17] MEDS: Famotidine TAB* 20 MG PO SCH (22:37)
[2018-05-18] MEDS: Cefepime 1 GM in Dextrose(*) 1 GM/50 ML BAG IV SCH (02:35)
[2018-05-18] MEDS: Omeprazole CAP* 20 MG PO SCH (06:10)
[2018-05-18] MEDS: Heparin VIAL(*) 5000 UNITS/ML VIAL (FIVE THOUSAND) SUBCUT SCH ×3 (06:10→21:31)
[2018-05-18 06:34] LABS: ABS Basophils 0 10^3/ul (0-0.2); ABS Eosinophils 0.4 10^3/ul (0-0.6); ABS Lymphocytes 0.6 10^3/ul (1.0-4.8); ABS Monocytes 0.3 10^3/ul (0-0.8); ABS Neutrophils 9.3 10^3/ul (1.5-7.7); ABS Nucleated RBC 0 10^3/ul; Eosinophil % 3.6 % (0-6); Hematocrit 26 % (42-52); Hemoglobin 8.6 g/dl (14.0-18.0); Lymphocyte % 5.8 % (25-47); Mean Corpuscular HGB Conc 33 g/dl (31-36); Mean Corpuscular Hemoglobin 25 pg (27-31); Mean Corpuscular Volume 75 fL (80-94); Mean Platelet Volume 7.8 um3 (7.4-10.4); Nucleated Red Blood Cells % 0.1; Platelet Count 189 10^3/ul (150-450); Red Cell Distribution Width 18 % (10.5-15); White Blood Count 10.6 10^3/ul (3.5-10.8)
[2018-05-18 06:49] LABS: EGFR Non-African American 86.4 (>60)
[2018-05-18] MEDS ORDERED: Magnesium Sulfate IV* 3 GM in NS 0.9% 100 ML* 100 ML IVPB ONE (08:00)
[2018-05-18] MEDS: Insulin LISPRO* 1 UNITS UNIT SUBCUT SCH ×4 (09:40→20:49)
[2018-05-18] MEDS: Aspirin EC TAB* 81 MG TAB.EC PO SCH (09:52)
[2018-05-18] MEDS: Sertraline* 100 MG TAB PO SCH (09:53)
[2018-05-18] MEDS: Potassium Chlor TAB* 20 MEQ TAB.ER PO SCH ×2 (09:53→20:37)
[2018-05-18] MEDS: Docusate CAP* 100 MG PO SCH ×2 (09:53→20:34)
[2018-05-18] MEDS ORDERED: diPHENhydraMINE IV* 50 MG/ML 1 ml VIAL (BENADRYL) SLOW PUSH ONE (11:37)
[2018-05-18] MEDS ORDERED: diPHENhydraMINE IV* 50 MG/ML 1 ml VIAL (BENADRYL) SLOW PUSH PRN (11:56)
[2018-05-18] MEDS ORDERED: Ciprofloxacin 400MG IVPREMIX(* 400 MG/200 ML BAG IVPB SCH (12:00)
--- NOTE | 2018-05-18 15:30 | PN ---
Subjective Date of Service: 05/18/18 Interval History: Patient is more alert than yesterday. Patient has rash on arms and chest which is itching and getting worse. Patient denies F/C, N/V, abdominal pain, CP, SOB, diarrhea, or other pain. Family History: Unchanged from Admission Social History: Unchanged from Admission Past Medical History: Unchanged from Admission Objective Active Medications: Acetaminophen (Tylenol Tab*) 650 mg PO Q6H PRN PRN Reason: FEVER/PAIN Hydrocodone Bitart/Acetaminophen ([place] 5-325 Tab*) 1 tab PO Q8HR PRN PRN Reason: PAIN Aspirin (Aspirin Ec Tab*) 81 mg PO DAILY [facility] Last Admin: 05/18/18 09:52 Dose: 81 mg Atorvastatin Calcium (Lipitor*) 10 mg PO BEDTIME [facility] Last Admin: 05/17/18 22:37 Dose: 10 mg Diphenhydramine HCl (Benadryl Iv*) 25 mg SLOW PUSH Q6H PRN PRN Reason: ITCHING Docusate Sodium (Colace Cap*) 200 mg PO BID [facility] Last Admin: 05/18/18 09:53 Dose: 200 mg Famotidine (Pepcid Tab*) 40 mg PO BEDTIME [facility]; Protocol Last Admin: 05/17/18 22:37 Dose: 40 mg Heparin Sodium (Porcine) (Heparin Vial(*)) 5,000 units SUBCUT Q8HR [facility] Last Admin: 05/18/18 15:00 Dose: 5,000 units Meropenem 2 gm/ Sodium (Chloride) 140 mls @ 280 mls/hr IVPB Q12H [facility] Insulin Human Lispro (Humalog*) 0 units SUBCUT ACHS [facility]; Protocol Last Admin: 05/18/18 13:06 Dose: 1 units Melatonin (Melatonin) 3 mg PO BEDTIME PRN PRN Reason: INSOMNIA Metoprolol Succinate (Toprol Xl Tab*) 25 mg PO QPM [facility] Last Admin: 05/17/18 18:33 Dose: 25 mg Omeprazole (Prilosec Cap*) 20 mg PO DAILY@0600 [facility] Last Admin: 05/18/18 06:10 Dose: 20 mg Ondansetron HCl (Zofran Inj*) 4 mg IV Q6H PRN PRN Reason: NAUSEA Potassium Chloride (Klor Con Er Tab*) 20 meq PO BID [facility] Stop: 05/18/18 21:01 Last Admin: 05/18/18 09:53 Dose: 20 meq Sertraline HCl (Zoloft*) 100 mg PO DAILY [facility] Last Admin: 05/18/18 09:53 Dose: 100 mg Vital Signs - 8 hr 05/18/18 05/18/18 11:47 13:06 Respiratory 14 16 Rate Oxygen Devices in Use Now: None Appearance: Patient is a 57yo male who appears older than stated age and is sitting in the bed in NAD. Eyes: No Scleral Icterus, PERRLA Ears/Nose/Mouth/Throat: NL Teeth, Lips, Gums, Clear Oropharnyx, Mucous Membranes Moist Neck: NL Appearance and Movements; NL JVP, Trachea Midline Respiratory: Symmetrical Chest Expansion and Respiratory Effort, Clear to Auscultation Cardiovascular: NL Sounds; No Murmurs; No JVD, RRR, No Edema Abdominal: NL Sounds; No Tenderness; No Distention, No Hepatosplenomegaly, - - Distended. Lymphatic: No Cervical Adenopathy Extremities: No Edema, No Clubbing, Cyanosis Skin: No Nodules or Sclerosis, - - Morbilliform rash on right arm and on chest. Neurological: Alert and Oriented x 3, - - CN II-XII intact. Result Diagrams: 05/18/18 06:00 05/18/18 06:00 Additional Lab and Data: . Microbiology and Other Data: Microbiology 05/16/18 00:57 Nasal Screen MRSA (PCR) - Final Nasal Mrsa Detected Diagnostic Imaging: [facility] Patient Name:QIANA MEHTA MR:[id number] : 1960 CT abdomen and pelvis with the following: IMPRESSION: 1. No CT findings to correlate with patient's symptomatology. 2. Persistent right staghorn calculus and left pelvocaliectasis with indwelling nephrostomy and left double-J ureteral stent. 3. Persistent relatively stable splenomegaly. 4. Additional incidental findings as described. <Electronically signed by Chantal Phan MD in [place]> 05/15/18 8381 EKG Data: . Assess/Plan/Problems-Billing Assessment: A 57 y/o male with complicated PMH, who presented to ED with fever and foul smelling urine form L nephrostomy tube, found to have sepsis and pyelonephritis with functioning nephrostomy tube. - Patient Problems (1) Sepsis Current Visit: Yes Status: Acute Comment: - Likely secondary to UTI/pyelonephritis - L nephrostomy tube is working well - Reaction to Cefepime, Resistant to Cipro. Start Meropenum and consult ID. - Urine culture grew pseudomonas and E coli. Multi-Drug Resistant. - Will need to follow up with Urologist outpatient. (2) CAD (coronary artery disease) Current Visit: Yes Status: Acute Code(s): I25.10 - ATHSCL HEART DISEASE OF [place] CORONARY ARTERY W/O ANG PCTRS SNOMED Code(s): 80389630 Comment: - Continue Aspirin and Lipitor - No Chest Pain (3) Diabetes mellitus Current Visit: Yes Status: Acute Code(s): E11.9 - TYPE 2 DIABETES MELLITUS WITHOUT COMPLICATIONS SNOMED Code(s): 09502643 Comment: - Very good glycemic control - HgA1C 4.1 - SSI and Low dose Lantus (4) HTN (hypertension) Current Visit: Yes Status: Acute Code(s): I10 - ESSENTIAL (PRIMARY) HYPERTENSION SNOMED Code(s): 17699497 Comment: - Continue Metoprolol - Normotensive (5) History of CVA (cerebrovascular accident) Current Visit: Yes Status: Acute Code(s): Z86.73 - PRSNL HX OF TIA (TIA), AND CEREB INFRC W/O RESID DEFICITS SNOMED Code(s): 808959849 Comment: - Continue Aspirin and Lipitor (6) Hyperlipidemia Current Visit: Yes Status: Acute Code(s): E78.5 - HYPERLIPIDEMIA, UNSPECIFIED SNOMED Code(s): 78012240 Comment: - Continue Atrovastatin (7) Cerebral ataxia Current Visit: Yes Status: Acute Code(s): G11.9 - HEREDITARY ATAXIA, UNSPECIFIED SNOMED Code(s): 57734302 Comment: - No acute issues (8) Paraplegia Current Visit: Yes Status: Acute Code(s): G82.20 - PARAPLEGIA, UNSPECIFIED SNOMED Code(s): 14498225 Comment: - No acute issues - Supportive care, turning patient frequently (9) DVT prophylaxis Current Visit: Yes Status: Acute Code(s): EXI4455 - SNOMED Code(s): 155273014 Comment: - SCDs and SubQ Heparin (10) DNR (do not resuscitate) Current Visit: Yes Status: Acute Status and Disposition: Inpatient. Anticipate discharge once medically stable.
[2018-05-18] MEDS: Meropenem(*) 2 GM in NS 0.9% 100 ML* 100 ML IVPB SCH (16:04)
[2018-05-18] MEDS: Metoprolol Succinate XL TAB* 25 MG PO SCH (18:02)
[2018-05-18] MEDS: Famotidine TAB* 20 MG PO SCH (20:33)
[2018-05-18] MEDS: Atorvastatin* 10 MG TAB PO SCH (20:35)
[2018-05-19] MEDS: Meropenem(*) 2 GM in NS 0.9% 100 ML* 100 ML IVPB SCH ×2 (03:37→15:04)
[2018-05-19] MEDS: Omeprazole CAP* 20 MG PO SCH (05:23)
[2018-05-19] MEDS: Heparin VIAL(*) 5000 UNITS/ML VIAL (FIVE THOUSAND) SUBCUT SCH ×3 (05:25→23:17)
[2018-05-19 06:58] LABS: Hematocrit 23 % (42-52); Hemoglobin 7.5 g/dl (14.0-18.0); Mean Corpuscular HGB Conc 33 g/dl (31-36); Mean Corpuscular Hemoglobin 25 pg (27-31); Mean Corpuscular Volume 74 fL (80-94); Mean Platelet Volume 6.9 um3 (7.4-10.4); Platelet Count 187 10^3/ul (150-450); Red Blood Count 3.04 10^6/ul (4.00-5.40); Red Cell Distribution Width 18 % (10.5-15); White Blood Count 6.1 10^3/ul (3.5-10.8)
[2018-05-19 07:34] LABS: EGFR Non-African American 82.1 (>60)
[2018-05-19 07:38] LABS: ABS Basophils 0 10^3/ul (0-0.2); ABS Eosinophils 0.2 10^3/ul (0-0.6); ABS Lymphocytes 0.6 10^3/ul (1.0-4.8); ABS Monocytes 0.2 10^3/ul (0-0.8); ABS Nucleated RBC 0 10^3/ul; Eosinophil % 3.6 % (0-6); Lymphocyte % 10.1 % (25-47); Nucleated Red Blood Cells % 0
[2018-05-19] MEDS: Insulin LISPRO* 1 UNITS UNIT SUBCUT SCH ×4 (07:44→23:03)
[2018-05-19] MEDS: Sertraline* 100 MG TAB PO SCH (08:48)
[2018-05-19] MEDS: Aspirin EC TAB* 81 MG TAB.EC PO SCH (08:49)
[2018-05-19] MEDS: Docusate CAP* 100 MG PO SCH ×2 (08:49→23:14)
--- NOTE | 2018-05-19 17:48 | PN ---
Subjective Date of Service: 05/19/18 Interval History: Patient seen and examined. No acute overnight events, remains with rash that appears to be improving. Denies abdominal pain, no fevers or chills. Family History: Unchanged from Admission Social History: Unchanged from Admission Past Medical History: Unchanged from Admission Objective Active Medications: Acetaminophen (Tylenol Tab*) 650 mg PO Q6H PRN PRN Reason: FEVER/PAIN Hydrocodone Bitart/Acetaminophen ([place] 5-325 Tab*) 1 tab PO Q8HR PRN PRN Reason: PAIN Aspirin (Aspirin Ec Tab*) 81 mg PO DAILY [facility] Last Admin: 05/19/18 08:49 Dose: 81 mg Atorvastatin Calcium (Lipitor*) 10 mg PO BEDTIME [facility] Last Admin: 05/18/18 20:35 Dose: 10 mg Diphenhydramine HCl (Benadryl Iv*) 25 mg SLOW PUSH Q6H PRN PRN Reason: ITCHING Docusate Sodium (Colace Cap*) 200 mg PO BID [facility] Last Admin: 05/19/18 08:49 Dose: Not Given Famotidine (Pepcid Tab*) 40 mg PO BEDTIME [facility]; Protocol Last Admin: 05/18/18 20:33 Dose: 40 mg Heparin Sodium (Porcine) (Heparin Vial(*)) 5,000 units SUBCUT Q8HR [facility] Last Admin: 05/19/18 15:05 Dose: 5,000 units Meropenem 2 gm/ Sodium (Chloride) 140 mls @ 280 mls/hr IVPB Q12H [facility] Last Admin: 05/19/18 15:04 Dose: 280 mls/hr Insulin Human Lispro (Humalog*) 0 units SUBCUT ACHS [facility]; Protocol Last Admin: 05/19/18 16:35 Dose: Not Given Melatonin (Melatonin) 3 mg PO BEDTIME PRN PRN Reason: INSOMNIA Metoprolol Succinate (Toprol Xl Tab*) 25 mg PO QPM [facility] Last Admin: 05/18/18 18:02 Dose: 25 mg Omeprazole (Prilosec Cap*) 20 mg PO DAILY@0600 [facility] Last Admin: 05/19/18 05:23 Dose: 20 mg Ondansetron HCl (Zofran Inj*) 4 mg IV Q6H PRN PRN Reason: NAUSEA Sertraline HCl (Zoloft*) 100 mg PO DAILY [facility] Last Admin: 05/19/18 08:48 Dose: Not Given Vital Signs - 8 hr 05/19/18 05/19/18 11:47 15:38 Temperature 98.2 F Pulse Rate 73 71 Respiratory 19 16 Rate Blood Pressure 118/53 130/61 (mmHg) O2 Sat by Pulse 98 100 Oximetry Oxygen Devices in Use Now: None Appearance: alert, NAD Eyes: No Scleral Icterus, PERRLA Ears/Nose/Mouth/Throat: Clear Oropharnyx, Mucous Membranes Moist Neck: NL Appearance and Movements; NL JVP, Trachea Midline Respiratory: Symmetrical Chest Expansion and Respiratory Effort, Clear to Auscultation Cardiovascular: NL Sounds; No Murmurs; No JVD, RRR, - - bipedal edema Abdominal: NL Sounds; No Tenderness; No Distention Extremities: No Clubbing, Cyanosis, - - paraplegia Neurological: Alert and Oriented x 3, - - LE paralysis Lines/Tubes/Other Access: Clean, Dry and Intact Other Access - nephrostomy tube patent Nutrition: Taking PO's Result Diagrams: 05/19/18 06:35 05/19/18 06:35 Additional Lab and Data: . Microbiology and Other Data: Microbiology 05/16/18 00:57 Nasal Screen MRSA (PCR) - Final Nasal Mrsa Detected Diagnostic Imaging: [facility] Patient Name:QIANA MEHTA MR:[id number] : 1960 CT abdomen and pelvis with the following: IMPRESSION: 1. No CT findings to correlate with patient's symptomatology. 2. Persistent right staghorn calculus and left pelvocaliectasis with indwelling nephrostomy and left double-J ureteral stent. 3. Persistent relatively stable splenomegaly. 4. Additional incidental findings as described. <Electronically signed by Chantal Phan MD in [place]> 05/15/18 4311 EKG Data: . Assess/Plan/Problems-Billing Assessment: A 57 y/o male with complicated PMH, who presented to ED with fever and foul smelling urine form L nephrostomy tube, found to have sepsis and pyelonephritis with functioning nephrostomy tube. - Patient Problems (1) Sepsis Comment: - Now resolved, 2/2 to UTI/pyelonephritis with multiple drug resistence and atbx reactions - Left nephrostomy patent - Reaction to Cefepime while inpatient, benadryl PRN - Started meropenum and consult ID, culture with resistent pseudomonas and E coli (2) CAD (coronary artery disease) Code(s): I25.10 - ATHSCL HEART DISEASE OF [place] CORONARY ARTERY W/O ANG PCTRS SNOMED Code(s): 56718409 Comment: - Stable on Aspirin and Lipitor (3) Diabetes mellitus Code(s): E11.9 - TYPE 2 DIABETES MELLITUS WITHOUT COMPLICATIONS SNOMED Code(s) : 26902493 Comment: - Stable on SSI and Low dose Lantus (4) HTN (hypertension) Code(s): I10 - ESSENTIAL (PRIMARY) HYPERTENSION SNOMED Code(s): 69816858 Comment: - Continue Metoprolol (5) History of CVA (cerebrovascular accident) Code(s): Z86.73 - PRSNL HX OF TIA (TIA), AND CEREB INFRC W/O RESID DEFICITS SNOMED Code(s): 368458308 Comment: - Continue Aspirin and Lipitor (6) Paraplegia Code(s): G82.20 - PARAPLEGIA, UNSPECIFIED SNOMED Code(s): 08457307 Comment: - Positioning and skin monitoring (7) Cerebellar ataxia Code(s): G11.9 - HEREDITARY ATAXIA, UNSPECIFIED SNOMED Code(s): 12983803 Comment: - at baseline, supportive care (8) Cognitive deficits Code(s): R41.89 - OTH SYMPTOMS AND SIGNS W COGNITIVE FUNCTIONS AND AWARENESS SNOMED Code(s): 290811256 Comment: - Functioning at baseline - Supportive care (9) DVT prophylaxis Code(s): VNF8562 - SNOMED Code(s): 051951004 Comment: - SCDs and SubQ Heparin (10) DNR (do not resuscitate) Status and Disposition: Return to [facility] when medically stable.
[2018-05-19] MEDS: Metoprolol Succinate XL TAB* 25 MG PO SCH (17:49)
[2018-05-19] MEDS: Atorvastatin* 10 MG TAB PO SCH (23:12)
[2018-05-19] MEDS: Famotidine TAB* 20 MG PO SCH (23:13)
[2018-05-20] MEDS: Meropenem(*) 2 GM in NS 0.9% 100 ML* 100 ML IVPB SCH (03:30)
[2018-05-20] MEDS: Omeprazole CAP* 20 MG PO SCH (05:04)
[2018-05-20] MEDS: Heparin VIAL(*) 5000 UNITS/ML VIAL (FIVE THOUSAND) SUBCUT SCH ×3 (05:06→22:06)
[2018-05-20] MEDS: Insulin LISPRO* 1 UNITS UNIT SUBCUT SCH ×4 (08:31→20:33)
[2018-05-20] MEDS: Aspirin EC TAB* 81 MG TAB.EC PO SCH (09:44)
[2018-05-20] MEDS: Sertraline* 100 MG TAB PO SCH (09:44)
[2018-05-20] MEDS: Docusate CAP* 100 MG PO SCH ×2 (09:44→22:05)
[2018-05-20] MEDS ORDERED: NS 0.9% IVPB SCH (14:56)
[2018-05-20] MEDS ORDERED: MEROPENEM IVPB SCH (14:56)
--- NOTE | 2018-05-20 16:55 | PN ---
Subjective Date of Service: 05/20/18 Interval History: Patient seen and examined. Speech at bedside for repeat swallow eval, recommendation still for nectar thick liquids. Patient denies any fever or chills, no abdominal pain, no cough and no SOB. Family History: Unchanged from Admission Social History: Unchanged from Admission Past Medical History: Unchanged from Admission Objective Active Medications: Acetaminophen (Tylenol Tab*) 650 mg PO Q6H PRN PRN Reason: FEVER/PAIN Hydrocodone Bitart/Acetaminophen ([place] 5-325 Tab*) 1 tab PO Q8HR PRN PRN Reason: PAIN Aspirin (Aspirin Ec Tab*) 81 mg PO DAILY [facility] Last Admin: 05/20/18 09:44 Dose: 81 mg Atorvastatin Calcium (Lipitor*) 10 mg PO BEDTIME [facility] Last Admin: 05/19/18 23:12 Dose: 10 mg Diphenhydramine HCl (Benadryl Iv*) 25 mg SLOW PUSH Q6H PRN PRN Reason: ITCHING Docusate Sodium (Colace Cap*) 200 mg PO BID [facility] Last Admin: 05/20/18 09:44 Dose: 200 mg Famotidine (Pepcid Tab*) 40 mg PO BEDTIME [facility]; Protocol Last Admin: 05/19/18 23:13 Dose: 40 mg Heparin Sodium (Porcine) (Heparin Vial(*)) 5,000 units SUBCUT Q8HR [facility] Last Admin: 05/20/18 15:39 Dose: 5,000 units Meropenem (Merrem 1 Gm Premix(*)) 1 gm in 50 mls @ 100 mls/hr IV Q12H [facility] Insulin Human Lispro (Humalog*) 0 units SUBCUT ACHS [facility]; Protocol Last Admin: 05/20/18 12:33 Dose: Not Given Melatonin (Melatonin) 3 mg PO BEDTIME PRN PRN Reason: INSOMNIA Metoprolol Succinate (Toprol Xl Tab*) 25 mg PO QPM [facility] Last Admin: 05/19/18 17:49 Dose: 25 mg Omeprazole (Prilosec Cap*) 20 mg PO DAILY@0600 [facility] Last Admin: 05/20/18 05:04 Dose: 20 mg Ondansetron HCl (Zofran Inj*) 4 mg IV Q6H PRN PRN Reason: NAUSEA Sertraline HCl (Zoloft*) 100 mg PO DAILY [facility] Last Admin: 05/20/18 09:44 Dose: 100 mg Vital Signs - 8 hr 05/20/18 15:44 Temperature 97.4 F Pulse Rate 70 Respiratory 16 Rate Blood Pressure 147/54 (mmHg) O2 Sat by Pulse 100 Oximetry Oxygen Devices in Use Now: None Appearance: Alert, NAD Eyes: PERRLA Ears/Nose/Mouth/Throat: Clear Oropharnyx - poor dentition, Mucous Membranes Moist Neck: NL Appearance and Movements; NL JVP, Trachea Midline Respiratory: Symmetrical Chest Expansion and Respiratory Effort, Clear to Auscultation Cardiovascular: NL Sounds; No Murmurs; No JVD, RRR Abdominal: NL Sounds; No Tenderness; No Distention Extremities: - - baseline bipedal edema 2/2 paralysis Skin: - - rash resolved Neurological: Alert and Oriented x 3, - - paraplegia, at baseline Lines/Tubes/Other Access: Clean, Dry and Intact Other Access - nephrostomy tube Nutrition: Taking PO's, - - nectar thick Result Diagrams: 05/19/18 06:35 05/19/18 06:35 Additional Lab and Data: . Microbiology and Other Data: Microbiology 05/16/18 00:57 Nasal Screen MRSA (PCR) - Final Nasal Mrsa Detected Diagnostic Imaging: [facility] Patient Name:QIANA MEHTA MR:[id number] : 1960 CT abdomen and pelvis with the following: IMPRESSION: 1. No CT findings to correlate with patient's symptomatology. 2. Persistent right staghorn calculus and left pelvocaliectasis with indwelling nephrostomy and left double-J ureteral stent. 3. Persistent relatively stable splenomegaly. 4. Additional incidental findings as described. <Electronically signed by Chantal Phan MD in [place]> 05/15/18 8507 EKG Data: . Assess/Plan/Problems-Billing Assessment: A 57 y/o male with complicated PMH, who presented to ED with fever and foul smelling urine form L nephrostomy tube, found to have sepsis and pyelonephritis with functioning nephrostomy tube. - Patient Problems (1) Sepsis Comment: - Now resolved, 2/2 to UTI/pyelonephritis with multiple drug resistence and atbx reactions - Left nephrostomy patent - Reaction to Cefepime while inpatient, benadryl PRN - Started meropenum for resistent pseudomonas and E coli - Per ID, keep on meropenem 1gm Q12h, PICC ordered as PO antibiotics are not an option - ID recommends changing nephrostomy tubes within 2 weeks, as this is likely the infectious source (2) CAD (coronary artery disease) Code(s): I25.10 - ATHSCL HEART DISEASE OF [place] CORONARY ARTERY W/O ANG PCTRS SNOMED Code(s): 40536315 Comment: - Stable on Aspirin and Lipitor (3) Diabetes mellitus Code(s): E11.9 - TYPE 2 DIABETES MELLITUS WITHOUT COMPLICATIONS SNOMED Code(s) : 80308232 Comment: - Stable on SSI and Low dose Lantus (4) HTN (hypertension) Code(s): I10 - ESSENTIAL (PRIMARY) HYPERTENSION SNOMED Code(s): 71020298 Comment: - Continue Metoprolol (5) History of CVA (cerebrovascular accident) Code(s): Z86.73 - PRSNL HX OF TIA (TIA), AND CEREB INFRC W/O RESID DEFICITS SNOMED Code(s): 229892821 Comment: - Continue Aspirin and Lipitor (6) Paraplegia Code(s): G82.20 - PARAPLEGIA, UNSPECIFIED SNOMED Code(s): 73256939 Comment: - Positioning and skin monitoring (7) Cerebellar ataxia Code(s): G11.9 - HEREDITARY ATAXIA, UNSPECIFIED SNOMED Code(s): 03014739 Comment: - at baseline, supportive care (8) Cognitive deficits Code(s): R41.89 - OTH SYMPTOMS AND SIGNS W COGNITIVE FUNCTIONS AND AWARENESS SNOMED Code(s): 312359485 Comment: - Functioning at baseline - Diet modified per Speech recs - Supportive care (9) DVT prophylaxis Code(s): OER9159 - SNOMED Code(s): 516890699 Comment: - SCDs and SubQ Heparin (10) DNR (do not resuscitate) Status and Disposition: Return to [facility] after PICC inserted and antibiotic infusion therapy set up at .
[2018-05-20] MEDS: Meropenem 1 GM PREMIX(*) 1 GM/50 ML BAG IV SCH (16:57)
[2018-05-20] MEDS: Metoprolol Succinate XL TAB* 25 MG PO SCH (17:16)
--- NOTE | 2018-05-20 20:37 | CONS ---
CONSULTATION REPORT: DATE OF CONSULT: 05/20/18 REQUESTING PROVIDER: Dinah York NP CONSULTING SERVICE: Infectious Disease. REASON FOR CONSULT: Urinary tract infection. IMPRESSION: 1. Cystitis and left pyelonephritis with ureteral stent infection due to E. coli and Pseudomonas. I think the Pseudomonas is a predominant pathogen in his case and that it has been present in his urine repeatedly throughout the summer. He has a left-sided nephrostomy tube and a left ureteral stent. 2. Nephrolithiasis. 3. Allergic reaction here to CEFEPIME, also allergic to CLINDAMYCIN and PENICILLIN. 4. Developmental delay. RECOMMENDATION: Continue meropenem 1 g every 12 hours for 14 more days and he should have followup with Urology for change out of the ureteral stent and with Interventional Radiology for change of the nephrostomy drain. HISTORY OF PRESENT ILLNESS: This is a 57-year-old man with developmental delay. He cannot provide any history, which was obtained instead from discussion with Dinah York NP and review of the medical record. He came to the hospital from [facility] where he is a long-term resident after he was found to have a temperature of 101.3 and foul cloudy urine from his left nephrostomy bag. He had a CT of the abdomen and pelvis, which did not show any obstruction. He was febrile to 38.5 on arrival. He was started on vancomycin and Levaquin. Then, his urine culture grew greater than 100,000 colonies of Pseudomonas and 50 to 75,000 colonies of E. coli. They were resistant to fluoroquinolones, so he was switched to CEFEPIME, he developed a rash while on that. He was switched to meropenem, which he is tolerating well. The rash has resolved. He denies any pain, just wants to go home. PAST MEDICAL HISTORY: 1. Nephrolithiasis. 2. Left-sided hydronephrosis, treated with a nephrostomy drain and ureteral stent. 3. History of colon cancer. 4. Iron-deficiency anemia. 5. History of stroke. 6. Type 2 diabetes. 7. Hypertension. 8. Coronary artery disease. 9. Paraplegia. 10. Cerebellar ataxia. 11. Hyperlipidemia. MEDICATIONS: 1. Tylenol. 2. Aspirin. 3. Lipitor. 4. Famotidine. 5. Heparin subcutaneous injection. 6. Melatonin. 7. Meropenem 2 g every 12 hours. 8. Metoprolol. 9. Omeprazole. 10. Sertraline. ALLERGIES: CLINDAMYCIN, PENICILLIN, and CEFEPIME. SOCIAL HISTORY: Lives in [facility]. FAMILY HISTORY: Unobtainable. REVIEW OF SYSTEMS: Unobtainable. PHYSICAL EXAM: Vital Signs: Temperature 36.4, heart rate 70, respiratory rate 18, blood pressure 133/66, oxygen saturation 94% on room air. In general, he is awake, not in distress. Neurologic: He is oriented x3. Follows all commands. HEENT: There is no conjunctival hemorrhage. Oropharynx without lesions. Neck is supple without mass. Heart is regular rate and rhythm without murmurs, rubs, or gallops. Lungs are clear to auscultation bilaterally. Abdomen: Soft, nontender, nondistended. There are bowel sounds present. There is no flank tenderness to palpation. There is a left-sided nephrostomy tube without surrounding erythema. Skin: There is no rash or splinter hemorrhage. LABORATORY DATA: White blood cell count 6, hemoglobin 7, platelets 187. Creatinine 0.9. Urinalysis showed nitrites, blood, leukocyte esterase, white cells. Please see impressions and recommendations as outlined above. Thanks for asking me to see Mr. Robledo in consultation. [id number]/[facility] #: [id number] JASMEET
[2018-05-20] MEDS: Atorvastatin* 10 MG TAB PO SCH (22:03)
[2018-05-20] MEDS: Famotidine TAB* 20 MG PO SCH (22:04)
[2018-05-21] MEDS: Meropenem 1 GM PREMIX(*) 1 GM/50 ML BAG IV SCH (03:37)
[2018-05-21] MEDS: Omeprazole CAP* 20 MG PO SCH (05:01)
[2018-05-21] MEDS: Heparin VIAL(*) 5000 UNITS/ML VIAL (FIVE THOUSAND) SUBCUT SCH ×2 (05:01→13:50)
[2018-05-21] MEDS: Insulin LISPRO* 1 UNITS UNIT SUBCUT SCH ×2 (08:20→12:36)
[2018-05-21] MEDS: Docusate CAP* 100 MG PO SCH (08:35)
[2018-05-21] MEDS: Sertraline* 100 MG TAB PO SCH (08:38)
[2018-05-21] MEDS: Aspirin EC TAB* 81 MG TAB.EC PO SCH (08:38)
[2018-05-21 09:02] VITALS: BP 147/62
--- NOTE | 2018-05-21 13:03 | DS ---
CC: [facility]; Dr. Zurita, Urology, [facility] * DATE OF ADMISSION: 05/15/2018. DATE OF DISCHARGE: 05/21/2018. MY ATTENDING PHYSICIAN WHILE IN THE HOSPITAL: Dr. Brittaney Vidal * (dictated by GREGORY Salguero). PRIMARY DISCHARGE DIAGNOSES: Pyelonephritis, nephrostomy, obstructing staghorn calculus, nonobstructing renal calculus. 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 STUDIES DONE WHILE IN THE HOSPITAL: 1. Chest x-ray from 05/15/2018 read as: No active cardiopulmonary disease. 2. Abdomen and pelvis CT from 05/15/2018 read as: No CT evidence to correlate with the patient's symptomatology of flank pain. Persistent right staghorn calculus and left pelvocaliectasis with indwelling nephrostomy and left double- J ureteral stent. Persistent relatively stable splenomegaly. Additional incidental findings. MEDICATIONS AT DISCHARGE: 1. Ty Ty 5/325 one tab q.8 hours as needed. 2. Tylenol extra strength 1,000 mg p.o. b.i.d. 3. Sertraline 100 mg p.o. daily. 4. Ranitidine 300 mg p.o. at bedtime. 5. Aspirin 81 mg p.o. daily. 6. Metoprolol Succinate 25 mg p.o. q.p.m. 7. Insulin Glargine 5 units subcutaneous at bedtime. 8. Atorvastatin 10 mg p.o. at bedtime. 9. Ferrous Sulfate 325 mg p.o. q.p.m. 10. Melatonin 3 mg p.o. at bedtime as needed. 11. Vitamin D3 5,000 units p.o. daily. 12. Kenalog one application topical t.i.d. 13. Docusate 200 mg p.o. b.i.d. 14. Meropenem 1 gm q.12 hours times 22 doses. HOSPITAL COURSE: This is a brief summary of the patient's presentation. For more details, please see the history and physical from Dr. Joel Moon on 05/15/2018. In brief, this patient is a 57-year-old male with a past medical history significant for the above who is a long-term resident of [facility] who presented to the emergency department after recurrent UTI' s for several months per [facility] notes and then having malaise, fevers, and back pain. The patient is a poor historian and had a stable CT of the abdomen and pelvis as above. The patient met sepsis criteria and was given a fluid bolus and started on Vancomycin and Cefepime. The patient had blood cultures which did not grow anything. The patient had urine cultures which grew pseudomonas aeruginosa and Escherichia coli, greater than 100,000 units pseudomonas and 50 to 75,000 units of E. coli. These were resistant to numerous medications. The patient, during his hospitalization, was started on Cefepime. The patient was continued on Cefepime; his Vancomycin was discontinued. The patient's sepsis resolved. The patient had baseline anemia during his hospitalization, slightly worse than previous testing. The patient had a low potassium which was replaced. The patient's blood glucose was very well-controlled while he was in the hospital. The patient had a low albumin, elevated procalcitonin which declined with antibiotic therapy. The patient had a positive urinalysis with culture as above. The patient was continued on Cefepime for several days while he was in the hospital; however, on the third day of Cefepime therapy, the the patient developed a generalized morbilliform rash, worse on his arm where the medication was infusing, but spreading over his trunk. The patient stated that the rash was itchy, but had no difficulty breathing. The patient was given Benadryl and the medication was discontinued. The patient was transitioned to Meropenem due to the sensitivities of his urinary pathogens and known reaction to Penicillin. The patient was seen in consultation by Dr. Aj Loja of Infectious Disease who recommended discharge for a total of two weeks of Meropenem 1 gm every 12 hours. The patient remains stable for the remainder of the hospitalization. The patient had a PICC line placed on May 21 and was stable and amenable for discharge. The patient should follow-up with his outpatient urologist, as above, for ongoing care and replacement of his nephrostomy tube before he finishes his course of Meropenem. PHYSICAL EXAMINATION ON THE DAY OF DISCHARGE: General: The patient is a 57-year -old male who appears older than stated age, sitting comfortably in bed in no acute distress. Vital signs at the time of evaluation: Temperature 97.7, pulse rate 72, respiratory 20, oxygen saturation 98 percent on room air, blood pressure 147/62. HEENT: Head normocephalic, atraumatic. Sclerae anicteric. No conjunctival injection. Nasal mucosa moist. Oral mucosa moist. No pharyngeal erythema, discharge or exudate. Neck: Supple, nontender. No lymphadenopathy. No carotid bruit auscultated. No JVD. Cardiac: Regular rate and rhythm. No clicks, murmurs, gallops or rubs. Pulses 2+ in bilateral dorsalis pedis, posterior tibialis, and radial areas. Respiratory: Clear to auscultation bilaterally. No wheezes, rales or rhonchi. Good air exchange bilaterally. Abdomen: Soft, nontender, nondistended. Bowel sounds are present. Normoactive in all four quadrants. No hepatosplenomegaly. No abdominal bruits auscultated. No hepatojugular reflux. Genitourinary: No suprapubic or CVA tenderness. The patient has a left-sided nephrostomy tube draining cloudy, yellow urine in adequate amounts which has improved since the previous examination. Neuro: Cranial nerves II through XII grossly intact. The patient has findings consistent with his spina bifida, including chronic deformity of this legs and ataxia. Psychiatric: The patient is lethargic, but answers appropriately to questions and is cooperative. DISCHARGE PLAN: The patient will be discharged back to [facility]. The patient will have Meropenem as above. The patient should follow-up with facility physician as well as his outpatient urologist as soon as possible after discharge for changing of his nephrostomy tube. The patient should be continued on all of his other medications. The patient will be continued at this time on his Lantus; however, he had an hemoglobin A1c while in the hospital of 4.4 and the appropriateness of this medication should be evaluated ongoing given the patient's multiple comorbidities and likely decreased life expectancy. The patient should be monitored closely for reaction to Meropenem as he has multiple drug allergies and recently had a REACTION TO CEFEPIME; however, the patient tolerated several doses of Meropenem while in the hospital. The patient should return to the hospital for symptoms that are unable to be managed at [facility]. The patient has limited medical interventions stipulated on his MOLST. The patient should have PICC line care. The patient should have nectar-thickened and mechanical ground liquids as above to avoid aspiration per the recommendations of Speech Therapy. The patient is a Quinn lift for transfer and should engage in activity as tolerated. TIME SPENT: Approximately 60 minutes were spent on the discharge of this patient, 20 of which were spent [id number] with the patient, obtaining history and physical and discussing treatment plan. GREGORY SALGUERO [id number]/[facility] #: [id number] JASMEET
[2018-05-21] MEDS ORDERED: Meropenem 1 GM PREMIX(*) 1 GM/50 ML BAG IV SCH (15:30)
== END 2018-05-21 16:00 | DRG 698 ==
LOC: ED 18:50 → MEDTELE 22:36
PROVIDERS: ADMIT Hospitalist; ATTEND Internal Medicine
PROC: 02HV33Z Insertion of Infusion Device into Superior Vena Cava, Percutaneous Approach (ICD-10-PCS; principal; 2018-05-21)
DX: T83.592A Infection and inflammatory reaction due to indwelling ureteral stent, initial encounter (principal); A41.9 Sepsis, unspecified organism; G82.20 Paraplegia, unspecified; G11.9 Hereditary ataxia, unspecified; N12 Tubulo-interstitial nephritis, not specified as acute or chronic; N20.0 Calculus of kidney; I10 Essential (primary) hypertension; I25.10 Atherosclerotic heart disease of native coronary artery without angina pectoris; E11.9 Type 2 diabetes mellitus without complications; K21.9 Gastro-esophageal reflux disease without esophagitis; F32.9 Major depressive disorder, single episode, unspecified; F41.9 Anxiety disorder, unspecified; I44.7 Left bundle-branch block, unspecified; D50.9 Iron deficiency anemia, unspecified; E78.5 Hyperlipidemia, unspecified; Z66 Do not resuscitate; I87.8 Other specified disorders of veins; B96.5 Pseudomonas (aeruginosa) (mallei) (pseudomallei) as the cause of diseases classified elsewhere; B96.20 Unspecified Escherichia coli [E. coli] as the cause of diseases classified elsewhere; N30.90 Cystitis, unspecified without hematuria; R62.50 Unspecified lack of expected normal physiological development in childhood; M79.671 Pain in right foot; R16.1 Splenomegaly, not elsewhere classified; Z79.82 Long term (current) use of aspirin; Z79.4 Long term (current) use of insulin; Z79.52 Long term (current) use of systemic steroids; Z90.5 Acquired absence of kidney; Q05.9 Spina bifida, unspecified; Z87.09 Personal history of other diseases of the respiratory system; Z85.038 Personal history of other malignant neoplasm of large intestine; Z88.1 Allergy status to other antibiotic agents; Z88.0 Allergy status to penicillin; Z87.442 Personal history of urinary calculi; Z95.828 Presence of other vascular implants and grafts; Z86.14 Personal history of Methicillin resistant Staphylococcus aureus infection; Z86.73 Personal history of transient ischemic attack (TIA), and cerebral infarction without residual deficits; Z87.891 Personal history of nicotine dependence
CPT/HCPCS: 36415; 71045; 74177; 80048; 80053; 80202; 81003; 81015; 83036; 83605; 83735; 84145; 84484; 85025; 85610; 85730; 86140; 87040; 87077; 87086; 87186; 87641; 93005; 99283; A9270-GY; C1751; J0692; J0744; J1200; J1644; J2185; J2270; J3370; J3475; J3480; Q9967

== ENCOUNTER 2018-07-21 17:32 | Emergency (ER) | payer MEDICARE, MEDICAID ==
[2018-07-21] MEDS ORDERED: NS 0.9% 1000 ML*IV.FLUID IV ONE (17:44)
[2018-07-21] MEDS ORDERED: metroNIDAZOLE IV 500 MG/100ML* 500 MG/100 ML BAG IVPB ONE (17:44)
[2018-07-21] MEDS ORDERED: Ciprofloxacin 400MG IVPREMIX(* 400 MG/200 ML BAG IVPB ONE (17:44)
[2018-07-21] MEDS ORDERED: Acetaminophen SUPP* 650 MG SUPP PR ONE (17:49)
--- NOTE | 2018-07-21 17:49 | ED ---
Altered Mental Status - HPI Summary HPI Summary: Pt is a 57 y/o male brought in by EMS who presents to the ED c/o AMS. He was sent here by Mian Moreno, who states the pt is a DNR. Pt is non-verbal and only arouses to painful stimuli. As per EMS, he has a fever of 102.4 degrees F and a pulse of 123 bpm. Pt has had multiple admissions recently for sepsis and nephrostomy issues. He has a hx of UTI and pseudomonas. Pt is a level 5 caveat due to his AMS, therefore a proper history was not able to be obtained. - History Of Current Complaint Stated Complaint: FEVER/FLANK PAIN Hx Obtained From: EMS, Medical Records Hx From Patient Unobtainable Due To: Altered Mental Status Onset/Duration: Unknown Character: Responsiveness Aggravating Factor(s): Unknown Associated Signs And Symptoms: Positive: Fever - Allergies/Home Medications Allergies/Adverse Reactions: Allergies Allergy/AdvReac Type Severity Reaction Status Date / Time cefepime Allergy Intermediate Rash And Verified 05/19/18 14:15 Itching clindamycin Allergy Intermediate Unknown Verified 05/04/18 18:59 Reaction Details Penicillins Allergy Intermediate Unknown Verified 05/04/18 18:59 Reaction Details PMH/Surg Hx/FS Hx/Imm Hx Endocrine/Hematology History: Reports: Hx Anticoagulant Therapy, Hx Diabetes Denies: Hx Thyroid Disease Cardiovascular History: Reports: Hx Coronary Artery Disease, Hx Hypercholesterolemia, Hx Hypertension, Other Cardiovascular Problems/Disorders - HYPERTENSION/CAD Denies: Hx Congestive Heart Failure, Hx Pacemaker/ICD Respiratory History: Denies: Hx Asthma, Hx Chronic Obstructive Pulmonary Disease (COPD), Other Respiratory Problems/Disorders GI History: Reports: Hx Gastroesophageal Reflux Disease History: Reports: Hx Kidney Stones, Other Problems/Disorders - left ureteral stent, "encrusted", hx MRSA urosepsis Denies: Hx Dialysis, Hx Renal Disease Musculoskeletal History: Reports: Hx Back Problems Sensory History: Reports: Other Sensory Impairments Denies: Hx Cataracts, Hx Contacts or Glasses, Hx Eye Injury, Hx Eye Prosthesis, Hx Glaucoma, Hx Legally Blind, Hx Macular Degeneration, Hx Vision Problem, Hx Deafness, Hx Hearing Aid, Hx Hearing Problem Opthamlomology History: Reports: Other Sensory Impairments Denies: Hx Cataracts, Hx Contacts or Glasses, Hx Eye Injury, Hx Eye Prosthesis, Hx Glaucoma, Hx Legally Blind, Hx Macular Degeneration, Hx Vision Problem Neurological History: Reports: Hx Transient Ischemic Attacks (TIA) Denies: Hx Dementia, Hx Seizures Psychiatric History: Reports: Hx Anxiety, Hx Depression, Hx of Violent Episodes Against Others Denies: Hx Panic Disorder, Hx Substance Abuse - Cancer History Cancer Type, Location and Year: Colon CA - Surgical History Surgery Procedure, Year, and Place: pt declared "colon cancer and something on heart", appears to have port scar (this was in chart prior to 12/06/17). ureteral stent, [facility]. RLQ abdominal scar Infectious Disease History: Denies: Hx Hepatitis, Hx Human Immunodeficiency Virus (HIV), Traveled Outside the [place] in Last 30 Days - Family History Known Family History: Positive: Respiratory Disease - pneumonia - Social History Alcohol Use: None Hx Substance Use: No Substance Use Type: Reports: None Hx Tobacco Use: Yes Smoking Status (MU): Former Smoker Review of Systems Positive: Fever Neurological: Other - AMS All Other Systems Reviewed And Are Negative: No Physical Exam - Summary Physical Exam Summary: Appearance: chronically-ill appearing, mild pain distress Skin: hot, dry, reflects adequate perfusion, stasis dermatitis on LE, decubitus redness stage 1-2 on lower back, surgical scar on right shoulder, pressure wounds and bruises on LE Head/face: normal Eyes: EOMI, JACKIE ENT: mucous membranes mildly tacky, dentures Neck: supple, non-tender Respiratory: CTA, breath sounds diminished Cardiovascular: tachycardic but regular rhythm, pulses symmetrical, no LE edema Abdomen: non-tender, soft, nephrostomy tube on left side with cloudy fluid Bowel Sounds: present Musculoskeletal: contractured LE and RUE Neuro: holds eyes closed, doesnt really respond, moaning Triage Information Reviewed: Yes Vital Signs Reviewed: Yes Diagnostics - Laboratory Result Diagrams: 07/21/18 18:15 07/21/18 18:15 Lab Statement: Any lab studies that have been ordered have been reviewed, and results considered in the medical decision making process. - Radiology CXR Radiology Interpretation Completed By: Radiologist - NO ACTIVE CARDIOPULMONARY DISEASE. ED physician reviewed radiology report. Altered Mental Statu Course/Dx - Course Course Of Treatment: Patient with known staghorn calculi and nephrostomy tube in his left side. He has cloudy urine and history of urosepsis. He presents with high fever and sepsis syndrome. IV antibiotics given to cover prior history of MRSA and pseudomonas and ESBL Escherichia coli. IV fluids provided. Blood pressure stable. Patient is due not intubate, DO NOT RESUSCITATE but he is to receive limited medical interventions and hospitalization. Discussed with hospitalist who will admit. - Diagnoses Differential Diagnosis/HQI/PQRI: Hypoglycemia, Hyperthermia, Hypothermia, Medication Reaction, Metabolic Disorder, Sepsis Provider Diagnoses: Sepsis, Staghorn calculus, UTI (urinary tract infection) - Provider Notifications Discussed Care Of Patient With: Heidy Nix Time Discussed With Above Provider: 17:59 Instructed by Provider To: Other - Spoke to HOUSEMAID from [facility]. Pt is not a do not hospitalize. At 19:00 Dr. Correia accepts pt for admission. - Critical Care Time Critical Care Time: 30-74 min - Critical care time is exclusive of separately billable procedures Discharge - Sign-Out/Discharge Documenting (check all that apply): Patient Departure - Admit - Discharge Plan Condition: Guarded Disposition: ADMITTED TO [facility] Referrals: Néstor Mitchell MD [Primary Care Provider] - - Billing Disposition and Condition Condition: GUARDED Disposition: Admitted to [facility] - Attestation Statements Document Initiated by Scribe: Yes Documenting Scribe: Yolanda Munguia Provider For Whom Scribe is Documenting (Include Credential): Darshan Alvraez MD Scribe Attestation: Yolanda Ross scribed for Darshan Alvarez MD on 07/21/18 at 1918. Scribe Documentation Reviewed: Yes Provider Attestation: The documentation as recorded by the scribYolanda brink accurately reflects the service I personally performed and the decisions made by Darshan smart MD
[2018-07-21] MEDS ORDERED: Meropenem 1 GM PREMIX(*) 1 GM/50 ML BAG IV ONE (17:58)
[2018-07-21] MEDS ORDERED: Vancomycin(*) 1,000 MG VIAL IVPB SCH (18:00)
[2018-07-21 18:23] LABS: ABS Basophils 0 10^3/ul (0-0.2); ABS Eosinophils 0 10^3/ul (0-0.6); ABS Lymphocytes 0.1 10^3/ul (1.0-4.8); ABS Monocytes 0.2 10^3/ul (0-0.8); ABS Neutrophils 4.7 10^3/ul (1.5-7.7); ABS Nucleated RBC 0 10^3/ul; Eosinophil % 0.1 % (0-6); Hematocrit 26 % (42-52); Hemoglobin 8.5 g/dl (14.0-18.0); Lymphocyte % 1.3 % (25-47); Mean Corpuscular HGB Conc 33 g/dl (31-36); Mean Corpuscular Hemoglobin 25 pg (27-31); Mean Corpuscular Volume 76 fL (80-94); Mean Platelet Volume 6.7 fL (7.4-10.4); Nucleated Red Blood Cells % 0; Platelet Count 169 10^3/ul (150-450); Red Blood Count 3.36 10^6/ul (4.00-5.40); Red Cell Distribution Width 21 % (10.5-15)
[2018-07-21 18:36] LABS: INR 1.22 (0.77-1.02)
[2018-07-21 18:45] LABS: EGFR Non-African American 81.1 (>60)
[2018-07-21] MEDS ORDERED: Vancomycin(*) 1,000 MG in NS 0.9% 250 ML* 250 ML IVPB ONE (19:00)
[2018-07-21 19:03] LABS: Urine Appearance Turbid; Urine Blood 3+ (Negative); Urine Color Straw; Urine Ketones Negative (Negative); Urine Protein 2+(100 mg/dL) (Negative); Urine Red Blood Cell 3+(>10/hpf) (Absent); Urine Urobilinogen Negative (Negative); Urine White Blood Cell 3+(>20/hpf) (Absent)
[2018-07-21] MEDS ORDERED: NS 0.9% 1000 ML* 1,000 ML IV ONE (21:38)
[2018-07-21 21:40] VITALS: BP 96/45
--- NOTE | 2018-07-21 22:35 | CONS ---
CC: Sasser Josh * CONSULTATION REPORT: DATE OF CONSULTATION: 07/21/18 - EMERGENCY DEPT PRIMARY CARE PROVIDER: Mian Moreno. ATTENDING PHYSICIAN WHILE IN THE HOSPITAL: Dr. Renita Correia (report dictated by José Granados NP) REQUESTING PHYSICIAN IN CONSULT: Dr. Alvarez. REASON FOR CONSULTATION: Evaluation for admission. HISTORY OF PRESENT ILLNESS: Mr. Robledo is a 57-year-old male patient who recently was in [place] who had a nephrostomy tube replacement 2 weeks ago and was found to have a urinary tract infection. He was treated with IV antibiotics. He [facility]. Unfortunately, tonight it was noted by nursing staff that he was acting more confused. He was febrile. He was complaining of back pain again. They were concerned that he may have another UTI or possible pyelonephritis and they sent him to the hospital to be evaluated. Of note, the patient really is unable to give me a good review of systems and medical history because he does have a significant amount of delirium related to the infection. We were asked to evaluate for possible admission due to sepsis from possible pyelonephritis. PAST MEDICAL HISTORY: Significant for: 1. Colon cancer. 2. Iron-deficiency anemia. 3. CVA. 4. Nephrolithiasis. 5. Diabetes. 6. Hypertension. 7. CAD. 8. History of paraplegia secondary to spina bifida. 9. Cerebellar ataxia. 10. Hyperlipidemia. 11. He has a decreased cognitive function. PAST SURGICAL HISTORY: He has a history of left nephrostomy secondary to a staghorn calculus. In addition to this, he does have stents into the left kidney as well. HOME MEDICATIONS: Include: 1. Triamcinolone cream 1 application topically t.i.d. 2. Zoloft 100 mg daily. 3. Zantac 300 mg p.o. at bedtime. 4. Toprol-XL 25 mg daily. 5. Meropenem. He was on that at discharge from this facility. He is no longer on it now. 6. Melatonin 3 mg p.o. at bedtime as needed. 7. Lantus 5 units subcu at bedtime. 8. Vilonia 1 tablet every 8 hours as needed. 9. Ferrous sulfate 325 mg p.o. q.p.m. 10. Colace 200 mg p.o. b.i.d. 11. Vitamin D3 5000 units p.o. monthly. 12. Lipitor 10 mg at bedtime. 13. Aspirin 81 mg daily. 14. Tylenol 1000 mg p.o. b.i.d. ALLERGIES TO MEDICATIONS: Include CEFEPIME, CLINDAMYCIN, and PENICILLIN. FAMILY HISTORY: Unable to be obtained. SOCIAL HISTORY: [facility]. There is no surrogate decision maker and the patient is unable to appoint one currently. REVIEW OF SYSTEMS: Again, unable to be obtained directly from the patient. He is constantly complaining about turning the light off in the room and he is fixated on that. PHYSICAL EXAMINATION: Blood pressure 158/83 with a pulse of 132, respirations were 30, O2 sat 96%, temperature 104.5. His blood pressure now is 126/70, heart rate is down to 100 and his respirations are right around 20 now. General : At this time, Mr. Robledo is a 57-year-old male patient. He is sitting in the hospital bed. He does not currently appear to be in any acute distress. HEENT: Head: Atraumatic, normocephalic. Eyes: EOMs intact. Sclerae are anicteric and not pale. Neck was supple. Throat: Oral mucosa appears to be dry. No oropharyngeal erythema. Heart: Sounds S1, S2. He is tachycardic. He does have a grade 2 to 3 systolic murmur in the aortic listening area. Lungs were clear to auscultation bilaterally. Abdomen was soft, flat, nontender. He has had no CVA tenderness. Extremities: He is unable to move his lower extremities. He is moving the upper extremities with 5/5 strength. Neurologically, he is awake to himself only. He knows his name. He is confused to time and place. His tongue was midline. He has no facial drooping. He had no weakness to bilateral lower extremities due to paraplegia. He had no upper extremity weakness. No focal deficits were exhibited on my exam. His skin was grossly intact. DIAGNOSTIC STUDIES/LAB DATA: WBC of 5.0, RBC of 3.39, hemoglobin 8.5, hematocrit of 26, platelet count of 169. Her INR was 1.22. PTT was 32.4. Sodium was 138, potassium was 3.4, chloride of 109, bicarb 20. BUN was 19, creatinine of 0.95, glucose was 127. Lactic 1.1, calcium 8.1. Total bili 0.4. AST 36, ALT 3, alk phos 67. Troponin 0.01. CRP was 60. Albumin 2.9. Urine showed 2+ protein, 3+ blood, positive nitrite 2+ rbc's, 3+ wbc's, 3+ leukocyte esterase, present squamous epithelial cells and 3+ bacteria. Serology was negative for flu. He had a chest x- ray obtained today, which revealed no radiographic evidence for acute cardiopulmonary abnormality on the portable x- ray. Old medical records were reviewed. ASSESSMENT AND PLAN: Mr. Robledo is a 57-year-old male patient with multiple medical problems coming into the emergency department today with signs of sepsis and acute delirium secondary to infection probably secondary to possible pyelonephritis in the setting of nephrostomy tube on the left side. We are asked to evaluate for admission. Unfortunately, my recommendations at this point are to transfer the patient given the fact we have no Urology on site. Here in addition to this, we do not have any way to change out his nephrostomy tube. He is septic. He may need emergent procedures which we do not have access to at [facility] and if he deteriorates, we may not be able to provide the services that he needs, again such as urgent stent placement and possible nephrostomy tube replacement. I would recommend broad spectrum antibiotics given his previous medical biology report. I would at least put him on vancomycin and meropenem. I would hydrate him with 30 cc/kg bolus. Panculture the patient and recommend transfer to [facility] where he does receive his urological care and there is Urology and IR backup in case the patient need to have any intervention to that left kidney. I did discuss this with my attending Dr. Correia, she was was in agreement. I did discuss with Dr. Alvarez and Dr. Correia discussed with Dr. Alvarez as well and we have asked for transfer to a higher level of care. TIME SPENT: Time spent on the consult was 60 minutes, greater than half that time was spent [id number] with the patient obtaining my history and physical, other half time was spent going over over the plan of care. I discussed the plan of care with my attending, Dr. Correia, she is in agreement. JOSÉ GRANADOS CIGAR [employer] PUNCHER [id number]/[facility] #: [id number] JASMEET
== END 2018-07-21 21:39 | disposition short-term general hospital (02) ==
LOC: ED 17:32
DX: A41.9 Sepsis, unspecified organism (principal); N20.0 Calculus of kidney; N39.0 Urinary tract infection, site not specified; R10.84 Generalized abdominal pain; R50.9 Fever, unspecified; Z88.0 Allergy status to penicillin; Z79.01 Long term (current) use of anticoagulants; Z87.891 Personal history of nicotine dependence; Z87.442 Personal history of urinary calculi
CPT/HCPCS: 36415; 71045; 80053; 81003; 81015; 83605; 84484; 85025; 85610; 85730; 86140; 87040; 87086; 96361; 96365; 96366; 99285; A9270-GY; J0744; J2185; J3370

== ENCOUNTER 2018-08-13 00:01 | Inpatient (IN) | payer MEDICARE, MEDICAID ==
--- NOTE | 2018-08-13 00:27 | ED ---
HPI Febrile Illness - HPI Summary HPI Summary: This patient is a 58 year old M brought in by EMS from the [facility] to [facility] with a chief complaint of fever of 101 F. According the paperwork sent with the patient from the longterm he reports not feeling well and they are requesting a CT. Level 5 Caveat: exam limited due to the patient being non verbal. - History of Current Complaint Chief Complaint: EDFever Time Seen by Provider: 08/13/18 00:15 Hx Obtained From: EMS Temperature: 101 F Pain Intensity: 0 - Additional Pertinent History Primary Care Physician: [id number] - Allergy/Home Medications Allergies/Adverse Reactions: Allergies Allergy/AdvReac Type Severity Reaction Status Date / Time cefepime Allergy Intermediate Rash And Verified 05/19/18 14:15 Itching clindamycin Allergy Intermediate Unknown Verified 05/04/18 18:59 Reaction Details Penicillins Allergy Intermediate Unknown Verified 05/04/18 18:59 Reaction Details PMH/Surg Hx/FS Hx/Imm Hx Endocrine/Hematology History: Reports: Hx Anticoagulant Therapy, Hx Diabetes Denies: Hx Thyroid Disease Cardiovascular History: Reports: Hx Coronary Artery Disease, Hx Hypercholesterolemia, Hx Hypertension, Other Cardiovascular Problems/Disorders - HYPERTENSION/CAD Denies: Hx Congestive Heart Failure, Hx Pacemaker/ICD Respiratory History: Denies: Hx Asthma, Hx Chronic Obstructive Pulmonary Disease (COPD), Other Respiratory Problems/Disorders GI History: Reports: Hx Gastroesophageal Reflux Disease History: Reports: Hx Kidney Stones, Other Problems/Disorders - left ureteral stent, "encrusted", hx MRSA urosepsis Denies: Hx Dialysis, Hx Renal Disease Musculoskeletal History: Reports: Hx Back Problems Sensory History: Reports: Other Sensory Impairments Denies: Hx Cataracts, Hx Contacts or Glasses, Hx Eye Injury, Hx Eye Prosthesis, Hx Glaucoma, Hx Legally Blind, Hx Macular Degeneration, Hx Vision Problem, Hx Deafness, Hx Hearing Aid, Hx Hearing Problem Opthamlomology History: Reports: Other Sensory Impairments Denies: Hx Cataracts, Hx Contacts or Glasses, Hx Eye Injury, Hx Eye Prosthesis, Hx Glaucoma, Hx Legally Blind, Hx Macular Degeneration, Hx Vision Problem Neurological History: Reports: Hx CVA, Hx Transient Ischemic Attacks (TIA) Denies: Hx Dementia, Hx Seizures Psychiatric History: Reports: Hx Anxiety, Hx Depression, Hx of Violent Episodes Against Others Denies: Hx Panic Disorder, Hx Substance Abuse - Cancer History Cancer Type, Location and Year: Colon CA - Surgical History Surgery Procedure, Year, and Place: pt declared "colon cancer and something on heart", appears to have port scar (this was in chart prior to 12/06/17). ureteral stent, [facility]. RLQ abdominal scar Infectious Disease History: Unable to Obtain/Confirm Infectious Disease History: Denies: Hx Hepatitis, Hx Human Immunodeficiency Virus (HIV), Traveled Outside the [place] in Last 30 Days - Family History Known Family History: Positive: Respiratory Disease - pneumonia - Social History Alcohol Use: None Hx Substance Use: No Substance Use Type: Reports: None Hx Tobacco Use: Yes Smoking Status (MU): Former Smoker Review of Systems - ROS Summary Review of Systems Summary: Level 5 Caveat: exam limited due to the patient being non verbal. Positive: Fever, Other - "Not feeling well" All Other Systems Reviewed And Are Negative: Yes Physical Exam - Summary Physical Exam Summary: VITAL SIGNS: Reviewed. GENERAL: Patient is a well-developed and elderly male who is lying comfortable in the stretcher. Patient is not in any acute respiratory distress. HEAD AND FACE: No signs of trauma. No ecchymosis, hematomas or skull depressions. No sinus tenderness. EYES: PERRLA, EOMI x 2, No injected conjunctiva, no nystagmus. EARS: Hearing grossly intact. Ear canals and tympanic membranes are within normal limits. MOUTH: Oropharynx within normal limits. NECK: Supple, trachea is midline, no adenopathy, no JVD, no carotid bruit, no c- spine tenderness, neck with full ROM. CHEST: Symmetric, no tenderness at palpation LUNGS: decreased breath sounds bilaterally CVS: Regular rate and rhythm, S1 and S2 present, no murmurs or gallops appreciated. ABDOMEN: Soft, there is a nephrostomy tube on the left side with cloudy urine in the bag. EXTREMITIES: FROM in all major joints, no edema, no cyanosis or clubbing. NEURO: Alert and disoriented. He is not answering question SKIN: Dry and warm Triage Information Reviewed: Yes Vital Signs On Initial Exam: Initial Vitals Temp Pulse Resp BP Pulse Ox 97.4 F 95 20 125/65 97 08/13/18 00:04 08/13/18 00:04 08/13/18 00:04 08/13/18 00:04 08/13/18 00:04 Vital Signs Reviewed: Yes Diagnostics - Vital Signs Vital Signs Temp Pulse Resp BP Pulse Ox 08/13/18 00:04 97.4 F 95 20 125/65 97 - Laboratory Result Diagrams: 08/13/18 00:56 08/13/18 00:56 Lab Statement: Any lab studies that have been ordered have been reviewed, and results considered in the medical decision making process. - Radiology CXR Radiology Interpretation Completed By: ED Physician Summary of Radiographic Findings: no acute process. Pending official report. - CT CT ABD/Pelvis CT Interpretation Completed By: Radiologist Summary of CT Findings: 1. A 13 mm right obstructive UPJ stone with interval development of moderate. hydronephrosis. Additional nonobstructing stones in the lower pore of the right. kidney. 2. Left nephrostomy tube and double-J ureter stent in stable position. Persistent mild left pelvocaliectasis with peripelvic and periureteral. stranding proximally similar to prior study. Unchanged nonobstructing left. renal stones. 3. Cholelithiasis with no CT evidence of acute cholecystitis. ED physician has reviewed this report. Course/Dx - Course Assessment/Plan: This patient is a 58 year old M brought in by EMS from the [facility] to [facility] with a chief complaint of fever of 101 F. According the paperwork sent with the patient from the longterm he reports not feeling well and they are requesting a CT. Level 5 Caveat: exam limited due to the patient being non verbal. CXR reveals, no acute process. Pending official report. CT ABD/Pelvis reveals, 1. A 13 mm right obstructive UPJ stone with interval development of moderate. hydronephrosis. Additional nonobstructing stones in the lower pore of the right. kidney. 2. Left nephrostomy tube and double-J ureter stent in stable position. Persistent mild left pelvocaliectasis with peripelvic and periureteral. stranding proximally similar to prior study. Unchanged nonobstructing left. renal stones. 3. Cholelithiasis with no CT evidence of acute cholecystitis. Bloodwork obtained. UA showed UTI. We discussed patient care with Dr Correia and she stated she cannot accept the patient since there is no urology supervisor education. We discussed patient care with the Dr Piña, urology and they recommended keeping the patient until the morning as thats when we will have urology coverage. The patient will be signed out to Dr. Falcon awaiting urology consult. - Diagnoses Provider Diagnoses: UTI (urinary tract infection), Obstructive uropathy - Provider Notifications Discussed Care Of Patient With: Jimi Piña - Time Discussed With Above Provider: 04:55 Instructed by Provider To: Other - We discussed patient care with the Dr Piña , urology and they recommended keeping the patient until the morning as thats when we will have urology coverage. Discharge - Sign-Out/Discharge Documenting (check all that apply): Sign-Out Patient Signing out patient TO: Patrick Falcon - Discharge Plan Condition: Fair Referrals: Néstor Mitchell MD [Primary Care Provider] - - Attestation Statements Document Initiated by Scribe: Yes Documenting Scribe: Praveen Bethea Provider For Whom Scribe is Documenting (Include Credential): Ishmael Christopher MD Scribe Attestation: Praveen Ross , scribed for Ishmael Christopher MD on 08/13/18 at 0628. Status of Scribe Document: Ready
[2018-08-13] MEDS ORDERED: NS 0.9% 1000 ML* 2,000 ML IV ONE (00:29)
[2018-08-13] MEDS ORDERED: Levofloxacin 750 MG IVPREMIX(* 750 MG/150 ML BAG IVPB ONE (00:30)
[2018-08-13] MEDS ORDERED: Acetaminophen TAB* 325 MG PO ONE (00:30)
[2018-08-13] MEDS ORDERED: Vancomycin(*) 1,000 MG in NS 0.9% 250 ML* 250 ML IVPB ONE (00:31)
[2018-08-13 01:14] LABS: INR 1.38 (0.77-1.02)
[2018-08-13 01:15] LABS: ABS Basophils 0 10^3/ul (0-0.2); ABS Eosinophils 0 10^3/ul (0-0.6); ABS Lymphocytes 0.2 10^3/ul (1.0-4.8); ABS Monocytes 0.7 10^3/ul (0-0.8); ABS Neutrophils 11.9 10^3/ul (1.5-7.7); ABS Nucleated RBC 0 10^3/ul; Eosinophil % 0 %; Hematocrit 27 % (42-52); Hemoglobin 8.6 g/dl (14.0-18.0); Lymphocyte % 1.6 %; Mean Corpuscular HGB Conc 33 g/dl (31-36); Mean Corpuscular Hemoglobin 25 pg (27-31); Mean Corpuscular Volume 78 fL (80-94); Mean Platelet Volume 7.3 fL (7.4-10.4); Nucleated Red Blood Cells % 0; Platelet Count 260 10^3/ul (150-450); Red Blood Count 3.42 10^6/ul (4.00-5.40); Red Cell Distribution Width 21 % (10.5-15); White Blood Count 12.9 10^3/ul (3.5-10.8)
[2018-08-13 01:22] LABS: EGFR Non-African American 66.9 (>60)
[2018-08-13] MEDS ORDERED: Acetaminophen SUPP* 650 MG SUPP PR ONE (01:25)
[2018-08-13 02:05] LABS: Urine Appearance Turbid; Urine Blood 3+ (Negative); Urine Ketones Trace (Negative); Urine Protein 2+(100 mg/dL) (Negative); Urine Red Blood Cell 3+(>10/hpf) (Absent); Urine Specific Gravity 1.018 (1.010-1.030); Urine Urobilinogen Negative (Negative); Urine White Blood Cell 1+(6-10/hpf) (Absent)
[2018-08-13 02:11] LABS: Urine Color Red
[2018-08-13] MEDS ORDERED: NS 0.9% 1000 ML* 1,000 ML IV ONE (04:17)
[2018-08-13 04:29] LABS: Urine Appearance Turbid; Urine Blood 3+ (Negative); Urine Color Yellow; Urine Ketones Negative (Negative); Urine Protein 2+(100 mg/dL) (Negative); Urine Red Blood Cell 3+(>10/hpf) (Absent); Urine Urobilinogen Negative (Negative); Urine White Blood Cell 3+(>20/hpf) (Absent)
[2018-08-13] MEDS ORDERED: KCL 10 MEQ/50 ML IVPREMIX* 10 MEQ/50 ML BAG IV ONE (04:46)
--- NOTE | 2018-08-13 07:23 | ED ---
Progress - Progress Note Progress Note: Patient is received as a sign out from Dr. Christopher to Dr. Falcon at 0700 08/13/18 shift change pending urology consult. 0726 - Patient noted to have Hx of MRSA. He is demented, lower extremities are contracted, patient has dry oral mucosa. Patient has no current complaints, he is comfortable in the room. Re-Evaluation - Re-Evaluation First Eval Re-Evaluation Time: 07:26 Change: Unchanged Comment: 0726 - Patient noted to have Hx of MRSA. He is demented, lower extremities are contracted, patient has dry oral mucosa. Patient has no current complaints, he is comfortable in the room. Course/Dx - Course Course Of Treatment: This patient was signed out by Dr. Christopher at shift change. He reports that the patient is an 58-year-old male with an urinary tract infection. Patient has a left nephrostomy tube and a right obstructed kidney stone. We are awaiting for Dr. Pizarro from urology to come and assess the patient. The patient is hemodynamically stable at this point. I discussed case with Dr. Pizarro from urology and he accepts the patient for consultations. He requested for the patient to be admitted to the hospitalist services. I discussed the case with Dr. Castillo who accepted the patient for admission. - Diagnoses Provider Diagnoses: UTI (urinary tract infection), Obstructive uropathy - Provider Notifications Discussed Care Of Patient With: Eduardo Pizarro Time Discussed With Above Provider: 08:37 Instructed by Provider To: Other - 0837 - Patient's case was discussed with Dr. Pizarro. Dr. Pizarro states he will review patient's case and call back with recommendation. 0904 - Dr. Pizarro called back, states he will consult on patient's case and asks that patient be admitted to hospitalist. 0914 - Patient' s case was discussed with Dr. Castillo, Dr. Castillo accepts for admission. Discharge - Sign-Out/Discharge Documenting (check all that apply): Patient Departure - ADMIT - Discharge Plan Condition: Fair Disposition: ADMITTED TO [facility] - Billing Disposition and Condition Condition: FAIR Disposition: Admitted to [facility] - Attestation Statements Document Initiated by Scribe: Yes Documenting Scribe: CHANG CHRISTINE Provider For Whom Scribe is Documenting (Include Credential): ADEEL FALCON MD Scribe Attestation: I, CHANG CHRISTINE , scribed for ADEEL FALCON MD on 08/15/18 at 2126. Scribe Documentation Reviewed: Yes Provider Attestation: The documentation as recorded by the scribe, CHANG CHRISTINE accurately reflects the service I personally performed and the decisions made by me, ADEEL FALCON MD Status of Scribe Document: Viewed
[2018-08-13] MEDS ORDERED: Meropenem 1 GM PREMIX(*) 1 GM/50 ML BAG IV ONE (09:19)
[2018-08-13] MEDS ORDERED: PROCHLORPERAZINE INJ 5 MG/ML 2 ML VIAL IV PRN (10:12)
[2018-08-13] MEDS ORDERED: Dextrose 50% Syringe 50 ML* 25 GM/50 ML SYRINGE IV PUSH PRN (10:14)
[2018-08-13] MEDS ORDERED: KCL 10 MEQ/50 ML IVPREMIX* 10 MEQ/50 ML BAG IV SCH (11:00)
[2018-08-13] MEDS ORDERED: Dexamethasone IV* 4 MG/ML 1 ML (4 MG) ONE (12:12)
[2018-08-13] MEDS ORDERED: Famotidine IV* 10 MG/ML 2 ML (20 mg) ONE (12:12)
[2018-08-13] MEDS ORDERED: Famotidine IV* 10 MG/ML 2 ML (20 mg) IV ONE (12:17)
[2018-08-13] MEDS ORDERED: Buffered Lidocaine 0.9% SYRIN* 5 ML/SYR SYRINGE INTRADERM ONE (12:17)
[2018-08-13] MEDS ORDERED: Dexamethasone IV* 4 MG/ML 1 ML (4 MG) IV SLOW PU ONE (12:17)
[2018-08-13] MEDS ORDERED: Iohexol 180 (CONTRAST) 10 ML SDV IV ONE (12:24)
[2018-08-13] MEDS ORDERED: DiMENhydriNATE IV* 50 MG/ML VIAL IV PUSH PRN (13:18)
[2018-08-13] MEDS ORDERED: Naloxone* 0.4 MG/ML 1 ML VIAL IV PRN (13:18)
[2018-08-13] MEDS ORDERED: fentaNYL* 50 MCG/ML 2 ML VIAL (100 MCG VIAL) ONE ×2 (13:22→14:33)
[2018-08-13] MEDS: fentaNYL* 50 MCG/ML 2 ML VIAL (100 MCG VIAL) IV PRN ×3 (13:23→14:58)
[2018-08-13] MEDS ORDERED: Ondansetron INJ* 2 MG/ML VIAL ONE (13:43)
--- NOTE | 2018-08-13 15:42 | HP ---
CC: Blanca Ricardo DO [facility]; Dr. Pizarro HISTORY AND PHYSICAL: DATE OF ADMISSION: 08/13/18 TIME OF EVALUATION: 10 a.m. PRIMARY CARE PROVIDER: Blanca Ricardo DO [place] [facility] CONSULTING UROLOGIST: Dr. Pizarro. CHIEF COMPLAINT: "Sent from skilled nursing due to fever and confusion." HISTORY OF PRESENT ILLNESS: Mr. Robledo is a 58-year-old male with a past medical history of colon ca ncer, iron-deficiency anemia, CVA, nephrolithiasis, type 2 diabetes, hypertension, coronary artery di sease, paraplegia secondary to spina bifida, cerebellar ataxia, hyperlipidemia, cognitive impairment, status post left nephrostomy tube secondary to staghorn calculus that presented to the emergency edmund , sent from [facility] for evaluation of fever and confusion. The patient is unable to provide any meaningful history at this time. He is able to tell me that he does not have any pain, and asks me repeatedly to turn the light off and let him sleep. The patient was seen in the emergency department on 07/21/18, with complaints of confusion and fever. His evaluation at that time was compatible with sepsis and pyelonephritis. Due to lack of Urology coverage that date, the patient was transferred to [facility], but I do not have the records of th at admission available at this time. He returned to our ED with a similar presentation and his CT at this time showed right hydronephrosis . From reading the records, Urology coverage was not available overnight and similar recommendation for transfer was made since the patient presented with sepsis and was found to have hydronephrosis. The ED provider discussed the case with Dr. Piña, urologist at [facility] and the recommendatio n was to keep the patient here until morning and wait for our own Urology coverage. The patient was discussed with Dr. Pizarro and the plan is for him to be admitted to be taken to the OR for possible cystoscopy and stent placement. PAST MEDICAL HISTORY: 1. Colon CA. 2. Left kidney staghorn calculus, status post left nephrostomy. 3. Iron-deficiency anemia. 4. CVA. 5. Type 2 diabetes. 6. Hypertension. 7. Coronary artery disease. 8. Paraplegia secondary to spina bifida. 9. Cerebellar ataxia. 10. Hyperlipidemia. 11. Cognitive impairment. MEDICATIONS: List is not available at this time. ALLERGIES: To CEFEPIME, CLINDAMYCIN, and PENICILLIN, but the patient tolerated MEROPENEM in the past . FAMILY HISTORY: I am unable to obtain from the patient. SOCIAL HISTORY: Unable to obtain from the patient, but as per records, the patient resides at [facility], and surrogate decision maker is his mother, Keily Robledo, phone number is [phone]. REVIEW OF SYSTEMS: I am unable to obtain from the patient due to his confusion. PHYSICAL EXAMINATION GENERAL: The patient is an elderly gentleman, who is lying in the bed, in no acute distress. VITAL SIGNS: Temperature 99.2, heart rate is 91, respiratory rate is 20, oxygen saturation is 97% on room air, blood pressure is 136/68. HEENT: Pupils are equal. Dry mucous membranes. CHEST: Breath sounds bilaterally with no added sounds. CVS: Normal S1, S2. Regular rate and rhythm. ABDOMEN: Soft, nontender, nondistended. Bowel sounds are present. EXTREMITIES: Contracted. NEUROLOGIC: The patient is lethargic but arousable, oriented to self only. The patient has a nephrostomy tube draining clear yellow urine. LABORATORY AND IMAGING DATA: The patient had a CBC that showed a WBC of 12.9, hemoglobin of 8.6, he matocrit 27, platelets of 260,000 with 92% neutrophils. INR is 1.38. Chemistry showed sodium of 139 , potassium of 3.2, chloride 106, bicarb 24, BUN 23, creatinine 1.1, glucose 248. Lactic acid of 0.7 , and a repeat one 4 hours later was 0.9. LFTs showed a total bilirubin of 0.4, AST of 8, ALT of 5, CRP of 165. Urinalysis showed 2+ protein, 3+ blood, positive nitrites, 2+ LE, 3+ wbc's, 3 + rbc's. Chest x-ray showed no evidence for acute disease. CT of the abdomen and pelvis showed a 30 mm right obstructive UPJ stone with interval development of moderate hydronephrosis. Additional non-obstructing stones in the lower pole of the right kidney. L eft nephrostomy tube and double-J ureter stent in stable position. Persistent mild left pelvocaliect asis with peripelvic and periureteral stranding proximally, similar to prior study, unchanged, non- o bstructing left renal stones. Cholelithiasis with no CT evidence of acute cholecystitis. ASSESSMENT AND PLAN: Mr. Robledo is a 58-year-old male with a past medical history of colon cancer, i mee-deficiency anemia, cerebrovascular accident, nephrolithiasis, status post left nephrostomy tube s econdary to staghorn calculus, type 2 diabetes, hypertension, coronary artery disease, paraplegia sec ondary to spina bifida, cerebellar ataxia, hyperlipidemia, cognitive impairment, who presented to the emergency room sent from [facility] with fever and confusion, found to have sepsis secondary to py elonephritis. 1. Sepsis. The patient's presentation is compatible with sepsis (fever and tachycardia), and I am concerned with severe sepsis due to his encephalopathy. His qSOFA is 1. Source is pyelonephritis. 2. Pyelonephritis. Due to obstructing UPJ stone. Dr. Pizarro plans to take the patient to the OR later today. His RCRI is 2, predicting a 2.4% to 3.6% risk of cardiac complication. Unable to determine the patie nt's exercise capacity due to his paraplegia and being bed bound. His prior EKG showed a left bundle -branch block unchanged from before, so I believe a new EKG would not give further information about ischemia. With the risk of progression of infection, I believe the patient is optimized for the prop osed procedure without any further cardiac workup at this time. On prior urine culture in June, the patient grew E. coli that was resistant to quinolones, and unf ortunately the patient had a rash with cefepime on a prior admission, but had no issues with meropene m, so I am going to continue meropenem at this time and we can adjust his regimen depending on what t he culture grows at this time. We will continue IV fluids and as described above, his lactic acid has been normal and his vital sign s remain stable. 3. Type 2 diabetes. He is n.p.o. for now in preparation for surgery. We are going to check fingers ticks q.4 hours and cover with the lispro sliding scale. 4. Coronary artery disease. We will resume medications when medication list is reconciled. 5. DVT prophylaxis. The patient has a score of 3 on a DVT Prophylaxis Risk Assessment Guide and he will have SCDs for now until his surgical procedure is performed. 6. Code status. The patient has a MOLST form in our system stating that he wants to be a do not res uscitate. TIME SPENT: Approximately 50 minutes were spent with patient interview, medical records review, phys ical examination to complete this admission, more than half of this time was spent [id number] with the patient in coordination of care. [id number]/[facility] #: [id number]
--- NOTE | 2018-08-13 16:57 | PN ---
Sepsis Event Evaluation Date of Evaluation: 08/13/18 Time of Evaluation: 16:00 Current Stage of Sepsis: Sepsis Vital Signs - Last 12 Hours: Vital Signs - 12 hr Temp Pulse Resp BP Pulse Ox 08/13/18 14:58 16 08/13/18 14:10 94 137/69 97 08/13/18 14:05 88 155/67 98 08/13/18 14:01 93 98 08/13/18 14:00 94 146/95 99 08/13/18 13:55 89 154/74 99 08/13/18 13:50 90 154/64 97 08/13/18 13:45 94 152/69 97 08/13/18 13:43 20 08/13/18 13:40 90 153/74 97 08/13/18 13:35 88 149/70 98 08/13/18 13:30 89 147/64 99 08/13/18 13:25 90 137/83 99 08/13/18 13:23 16 08/13/18 13:22 90 99 08/13/18 13:20 89 131/74 98 08/13/18 13:10 97.3 F 08/13/18 11:07 99.2 F 91 20 136/68 97 08/13/18 11:00 102 98 08/13/18 10:41 87 136/68 94 08/13/18 10:11 91 145/65 95 08/13/18 10:06 99 F 92 20 132/64 96 08/13/18 10:00 96 95 08/13/18 09:41 84 132/64 97 08/13/18 09:11 88 140/63 95 08/13/18 09:00 100 92 08/13/18 08:41 97 154/73 95 08/13/18 08:11 100 153/73 94 08/13/18 08:00 109 96 08/13/18 07:41 105 141/89 96 08/13/18 07:11 92 148/67 93 08/13/18 07:00 91 94 08/13/18 06:31 94 144/69 94 08/13/18 06:01 98 94 08/13/18 05:35 111 157/91 93 08/13/18 05:04 102 159/63 94 08/13/18 05:00 104 93 Lactic Acid: 08/13/18 08/13/18 00:56 04:47 Lactic Acid 0.7 0.9 - Cardiopulmonary Exam Capillary Refill: Immediate Respiratory: Symmetrical Chest Expansion and Respiratory Effort Cardiovascular: NL Sounds; No Murmurs; No JVD - Peripheral Pulse Exam Radial Pulses: Bilateral Normal Pedal Pulses: Bilateral Normal - Skin Exam Skin Exam: Normal Turgor - Bear Coma Scale Best Eye Response: 4 - Spontaneous Best Motor Response: 6 - Obeys Commands Best Verbal Response: 5 - Oriented Coma Scale Total: 15 Assess/Plan/Problems-Billing Assessment: Luis appears to be improving he is a and 0 times three. Mentation improved. Vital signs stable. No fever. Plan to continue iv abx and possible or later tonight for cystoscpoy and stent.
[2018-08-13] MEDS: Insulin LISPRO* 1 UNITS UNIT SUBCUT SCH ×4 (17:58→22:11)
[2018-08-13] MEDS: KCL premix 10MEQ/50 ML x 3 RUNS IV SCH ×2 (18:23→21:56)
[2018-08-13] MEDS: Acetaminophen TAB* 325 MG PO PRN (19:15)
[2018-08-13] MEDS: Meropenem 1 GM PREMIX(*) 1 GM/50 ML BAG IV SCH (20:54)
[2018-08-14] MEDS: KCL premix 10MEQ/50 ML x 3 RUNS IV SCH (00:22)
[2018-08-14] MEDS: NS 0.9% 1000 ML* 1,000 ML IV SCH ×2 (01:54→10:06)
[2018-08-14] MEDS: Meropenem 1 GM PREMIX(*) 1 GM/50 ML BAG IV SCH ×3 (03:26→16:53)
[2018-08-14] MEDS: Insulin LISPRO* 1 UNITS UNIT SUBCUT SCH ×4 (03:57→17:02)
[2018-08-14] MEDS: Acetaminophen TAB* 325 MG PO PRN ×2 (06:00→19:55)
[2018-08-14 06:09] LABS: ABS Basophils 0 10^3/ul (0-0.2); ABS Eosinophils 0 10^3/ul (0-0.6); ABS Lymphocytes 0.3 10^3/ul (1.0-4.8); ABS Monocytes 0.3 10^3/ul (0-0.8); ABS Neutrophils 4.3 10^3/ul (1.5-7.7); ABS Nucleated RBC 0 10^3/ul; Eosinophil % 0 %; Hematocrit 21 % (42-52); Hemoglobin 6.8 g/dl (14.0-18.0); Lymphocyte % 6.6 %; Mean Corpuscular HGB Conc 33 g/dl (31-36); Mean Corpuscular Hemoglobin 26 pg (27-31); Mean Corpuscular Volume 79 fL (80-94); Mean Platelet Volume 7.4 fL (7.4-10.4); Nucleated Red Blood Cells % 0; Platelet Count 203 10^3/ul (150-450); Red Blood Count 2.62 10^6/ul (4.00-5.40); Red Cell Distribution Width 22 % (10.5-15); White Blood Count 4.9 10^3/ul (3.5-10.8)
[2018-08-14 06:28] LABS: EGFR Non-African American 78.9 (>60)
--- NOTE | 2018-08-14 06:28 | OP ---
DATE OF OPERATION: 08/13/18 - ROOM #336 DATE OF : 56 SURGEON: Eduardo Pizarro MD ANESTHESIOLOGIST: Dr. Lamin Cedeno. ANESTHESIA: General. PRE-OP DIAGNOSES: 1. Proximal right ureteral calculus (1.5 cm). 2. Right pyelonephritis. 3. Status post placement, left nephrostomy tube and universal stent. 4. Bilateral renal Calculi POST-OP DIAGNOSES: 1. Proximal right ureteral calculus (1.5 cm). 2. Right pyelonephritis. 3. Status post placement, left nephrostomy tube and universal stent. 4. Bilateral renal Calculi OPERATIVE PROCEDURE: 1. Cystoscopy. 2. Right retrograde pyelography and placement of right ureteral stent (black silicone, 7 Estonian, 28 cm). INDICATIONS: Mr. Robledo is a 58-year-old male who is a resident at [facility] ,who has advanced dementia and who was brought to the emergency room last night with fever and abdominal pain. He is a known stone former and was previously treated at the [facility] for an obstructed left kidney and had placement of a left nephroureteral stent. The stent was recently replaced at [place]. Noncontrast CT of the abdomen and pelvis done in the emergency room showed bilateral nonobstructing renal calculi and there was a 1.5 calculus at the right ureteropelvic junction with right hydronephrosis and stranding around the right kidney consistent with acute pyelonephritis. The patient was treated with IV vancomycin and Levaquin and is taken to the operating room on an urgent basis for placement of a right ureteral stent. PATHOLOGY AT CYSTOSCOPY: The bladder mucosa showed significant degree of hyperemia with cloudy urine consistent with chronic cystitis. The universal stent was seen coming from the left ureteral orifice. The right ureteral orifice looked normal. At fluoroscopy, no radiopaque calculi were seen in the right kidney, and in particular, no radiopaque calculus seen at the ureteropelvic junction indicating that the stones are radiolucent. Upon right ureteral catheterization, 30 cc of purulent urine was drained from the kidney. Retrograde pyelography showed minimal hydronephrosis, but that was after the retained infected urine in the kidney was aspirated. DESCRIPTION OF PROCEDURE: After successful general anesthesia, the patient was placed in the lithotomy position and was prepped and draped for a cystoscopy. Cystoscopy was performed. The findings in the bladder were noted. A flexible-tip guidewire was then introduced into the right orifice and passed without difficulty all the way into the area of the renal pelvis. A size 5- Estonian open-ended catheter was then fed on top of the guidewire and positioned in the area of the renal pelvis. The collecting system was then decompressed aspirating 30 cc of thick purulent urine. The specimen was sent for urine culture. After the hydronephrotic drip slowed down, 2 to 3 cc of non-diluted contrast were injected delineating the collecting system. A black silicon stent , 28 cm long, 7 Estonian, was then fed on top of the guidewire and positioned with the proximal end coiling in an upper pole infundibulum and the distal end coiling inside the bladder. There was good drainage of contrast from the right kidney and no extravasation. A size 16-Estonian Nielsen catheter was then passed inside the bladder. The patient tolerated the procedure well and left the operating room in good condition. [id number]/[id number] #: [id number]
--- NOTE | 2018-08-14 16:39 | PN ---
Subjective Date of Service: 08/14/18 Interval History: Pt is feeling ok. He states he is hungry. He says no one fed him earlier today. He denies any pain. No SOB. Objective Active Medications: Acetaminophen (Tylenol Tab*) 650 mg PO Q6H PRN PRN Reason: pain/fever Last Admin: 08/14/18 06:00 Dose: 650 mg Dextrose (D50w Syringe 50 Ml*) 12.5 gm IV PUSH .FOR FS < 60 - SS PRN PRN Reason: FS < 60 Sodium Chloride (Ns 0.9% 1000 Ml*) 1,000 mls @ 125 mls/hr IV PER RATE [facility] Last Admin: 08/14/18 10:06 Dose: 125 mls/hr Meropenem (Merrem 1 Gm Premix(*)) 1 gm in 50 mls @ 100 mls/hr IV Q8H [facility] Last Admin: 08/14/18 10:04 Dose: 100 mls/hr Insulin Human Lispro (Humalog*) 0 units SUBCUT [facility]; Protocol Last Admin: 08/14/18 13:43 Dose: Not Given Prochlorperazine Edisylate (Compazine Inj*) 5 mg IV Q6H PRN PRN Reason: NAUSEA/VOMITING Vital Signs - 8 hr 08/14/18 08/14/18 11:26 16:14 Temperature 98.4 F 97.7 F Pulse Rate 64 76 Respiratory 18 16 Rate Blood Pressure 123/56 137/53 (mmHg) O2 Sat by Pulse 100 100 Oximetry Oxygen Devices in Use Now: None Appearance: Middle aged chronically ill appearing male sitting up in bed, eating pudding in NAD Eyes: No Scleral Icterus Ears/Nose/Mouth/Throat: Mucous Membranes Moist Respiratory: Symmetrical Chest Expansion and Respiratory Effort, Clear to Auscultation Cardiovascular: NL Sounds; No Murmurs; No JVD, RRR, No Edema Abdominal: NL Sounds; No Tenderness; No Distention, - - L nephrostomy in place Skin: No Nodules or Sclerosis Neurological: - - alert, oriented to situation Result Diagrams: 08/14/18 05:52 08/14/18 05:52 Microbiology and Other Data: Microbiology 08/13/18 01:50 Urine Culture - Preliminary Urine Pseudomonas Aeruginosa 08/13/18 00:56 Aerobic Blood Culture - Preliminary Blood Venous No Growth Day 1 Anaerobic Blood Culture - Preliminary No Growth Day 1 08/13/18 00:56 Aerobic Blood Culture - Preliminary Blood Venous No Growth Day 1 Anaerobic Blood Culture - Preliminary No Growth Day 1 Assess/Plan/Problems-Billing Mr Robledo is a 58 yo M stone former who has a L nephrostomy for an obstructing ureteral stone who presented to the ER with sepsis secondary to UTI related to an obstructing R ureteral stone. - Patient Problems (1) Sepsis Current Visit: Yes Status: Acute Comment: Secondary to UTI/pyelonephritis. Sepsis has resolved. (2) UTI (urinary tract infection) Current Visit: Yes Status: Acute Comment: Pt with likely UTI and pyelonephritis. Pts urine is growing pseudomonas. Will continue meropenem for now based on prior sensitivities. If stable tomorrow could consider d/c back to [facility] with IV meropenem to complete a 10 day course of therapy. Will likely consult ID tomorrow for further recommendations as he frequently develops UTIs. (3) Diabetes mellitus Current Visit: Yes Status: Acute Code(s): E11.9 - TYPE 2 DIABETES MELLITUS WITHOUT COMPLICATIONS SNOMED Code(s): 36316204 Comment: Sugars today generally under good control. Will continue lispro sliding scale for now and likely resume home dose of lantus. (4) HTN (hypertension) Current Visit: Yes Status: Acute Code(s): I10 - ESSENTIAL (PRIMARY) HYPERTENSION SNOMED Code(s): 13803814 Comment: BP is under good control off his usual medications. Will monitor for now, reconcile his med list and like restart metoprolol tomorrow. (5) CAD (coronary artery disease) Current Visit: Yes Status: Acute Code(s): I25.10 - ATHSCL HEART DISEASE OF [place] CORONARY ARTERY W/O ANG PCTRS SNOMED Code(s): 93805911 Comment: No complaints at this time. Reconcile meds and restart home regimen. (6) DVT prophylaxis Current Visit: Yes Status: Acute Code(s): QAC6931 - SNOMED Code(s): 603755804 Comment: Start lovenox as prophylaxis. (7) DNR (do not resuscitate) Current Visit: Yes Status: Acute
[2018-08-14] MEDS: Enoxaparin(*) 40 MG/0.4 ML SYR SUBCUT SCH (16:53)
[2018-08-14] MEDS ORDERED: Morphine VIAL* 4 MG/ML VIAL (1 ml vial) IV PRN (23:30)
[2018-08-15] MEDS: NS 0.9% 1000 ML* 1,000 ML IV SCH ×2 (00:08→09:12)
[2018-08-15] MEDS: Meropenem 1 GM PREMIX(*) 1 GM/50 ML BAG IV SCH ×3 (02:19→18:33)
[2018-08-15 08:40] LABS: ABS Basophils 0 10^3/ul (0-0.2); ABS Eosinophils 0 10^3/ul (0-0.6); ABS Lymphocytes 0.6 10^3/ul (1.0-4.8); ABS Monocytes 0.2 10^3/ul (0-0.8); ABS Neutrophils 3.3 10^3/ul (1.5-7.7); ABS Nucleated RBC 0 10^3/ul; Eosinophil % 0.6 %; Hematocrit 24 % (42-52); Hemoglobin 7.9 g/dl (14.0-18.0); Lymphocyte % 15.1 %; Mean Corpuscular HGB Conc 33 g/dl (31-36); Mean Corpuscular Hemoglobin 26 pg (27-31); Mean Corpuscular Volume 80 fL (80-94); Mean Platelet Volume 7.2 fL (7.4-10.4); Nucleated Red Blood Cells % 0.2; Platelet Count 209 10^3/ul (150-450); Red Blood Count 3.01 10^6/ul (4.00-5.40); Red Cell Distribution Width 21 % (10.5-15); White Blood Count 4.1 10^3/ul (3.5-10.8)
[2018-08-15 09:01] LABS: EGFR Non-African American 79.9 (>60)
[2018-08-15] MEDS: Insulin LISPRO* 1 UNITS UNIT SUBCUT SCH ×3 (10:36→18:39)
[2018-08-15] MEDS: Acetaminophen TAB* 325 MG PO PRN (16:31)
[2018-08-15] MEDS: Enoxaparin(*) 40 MG/0.4 ML SYR SUBCUT SCH (18:32)
[2018-08-16] MEDS: Acetaminophen TAB* 325 MG PO PRN ×2 (00:07→11:46)
[2018-08-16] MEDS: Meropenem 1 GM PREMIX(*) 1 GM/50 ML BAG IV SCH ×2 (02:05→09:30)
[2018-08-16] MEDS: NS 0.9% 1000 ML* 1,000 ML IV SCH ×2 (03:17→11:45)
[2018-08-16] MEDS: Insulin LISPRO* 1 UNITS UNIT SUBCUT SCH ×3 (09:27→17:12)
--- NOTE | 2018-08-16 15:41 | PN ---
Subjective Date of Service: 08/15/18 Interval History: LATE ENTRY from 06/15/18: Pt is feeling ok today. Today his complaint is he is cold. He denies any pain. Objective Active Medications: Acetaminophen (Tylenol Tab*) 650 mg PO Q6H PRN PRN Reason: pain/fever Last Admin: 08/16/18 11:46 Dose: 650 mg Dextrose (D50w Syringe 50 Ml*) 12.5 gm IV PUSH .FOR FS < 60 - SS PRN PRN Reason: FS < 60 Enoxaparin Sodium (Lovenox(*)) 40 mg SUBCUT Q24H [facility] Last Admin: 08/15/18 18:32 Dose: 40 mg Sodium Chloride (Ns 0.9% 1000 Ml*) 1,000 mls @ 125 mls/hr IV PER RATE [facility] Last Admin: 08/16/18 11:45 Dose: 125 mls/hr Meropenem (Merrem 1 Gm Premix(*)) 1 gm in 50 mls @ 100 mls/hr IV Q8H [facility] Last Admin: 08/16/18 09:30 Dose: 100 mls/hr Insulin Human Lispro (Humalog*) 0 units SUBCUT AC [facility]; Protocol Last Admin: 08/16/18 13:40 Dose: 3 unit Morphine Sulfate (Morphine Vial*) 1 mg IV Q1H PRN PRN Reason: SEVERE PAIN Last Admin: 08/15/18 00:20 Dose: 1 mg Prochlorperazine Edisylate (Compazine Inj*) 5 mg IV Q6H PRN PRN Reason: NAUSEA/VOMITING Vital Signs - 8 hr 08/16/18 08/16/18 08/16/18 07:59 08:00 11:27 Temperature 97.6 F 97.5 F Pulse Rate 65 76 Respiratory 18 20 18 Rate Blood Pressure 139/66 151/64 (mmHg) O2 Sat by Pulse 99 100 Oximetry Oxygen Devices in Use Now: None Appearance: Middle aged chronically ill appearing male sitting up in bed, NAD Eyes: No Scleral Icterus Ears/Nose/Mouth/Throat: Mucous Membranes Moist Respiratory: Symmetrical Chest Expansion and Respiratory Effort, Clear to Auscultation - anteriorly Cardiovascular: NL Sounds; No Murmurs; No JVD, RRR, No Edema Abdominal: NL Sounds; No Tenderness; No Distention Extremities: No Clubbing, Cyanosis Skin: No Nodules or Sclerosis Neurological: Alert and Oriented x 3 Result Diagrams: 08/15/18 07:54 08/15/18 07:54 Microbiology and Other Data: Microbiology 08/13/18 01:50 Urine Culture - Preliminary Urine Pseudomonas Aeruginosa 08/13/18 00:56 Aerobic Blood Culture - Preliminary Blood Venous No Growth Day 1 Anaerobic Blood Culture - Preliminary No Growth Day 1 08/13/18 00:56 Aerobic Blood Culture - Preliminary Blood Venous No Growth Day 1 Anaerobic Blood Culture - Preliminary No Growth Day 1 Assess/Plan/Problems-Billing Mr Robledo is a 58 yo M stone former who has a L nephrostomy for an obstructing ureteral stone who presented to the ER with sepsis secondary to UTI related to an obstructing R ureteral stone. - Patient Problems (1) Sepsis Current Visit: Yes Status: Acute Comment: Secondary to UTI/pyelonephritis. Sepsis has resolved. (2) UTI (urinary tract infection) Current Visit: Yes Status: Acute Comment: Pt with likely UTI and pyelonephritis. Pts urine is growing pseudomonas sensitive to meropenem- continue this for now. [facility] (3) Diabetes mellitus Current Visit: Yes Status: Acute Code(s): E11.9 - TYPE 2 DIABETES MELLITUS WITHOUT COMPLICATIONS SNOMED Code(s): 64204775 Comment: Sugars today generally under good control. Will continue lispro sliding scale for now. (4) HTN (hypertension) Current Visit: Yes Status: Acute Code(s): I10 - ESSENTIAL (PRIMARY) HYPERTENSION SNOMED Code(s): 03867144 Comment: BP is under fair control off his usual medications. Will monitor for now. (5) CAD (coronary artery disease) Current Visit: Yes Status: Acute Code(s): I25.10 - ATHSCL HEART DISEASE OF [place] CORONARY ARTERY W/O ANG PCTRS SNOMED Code(s): 69293032 Comment: No complaints at this time. (6) DVT prophylaxis Current Visit: Yes Status: Acute Code(s): IHG2344 - SNOMED Code(s): 647116032 Comment: lovenox (7) DNR (do not resuscitate) Current Visit: Yes Status: Acute
[2018-08-16 16:14] VITALS: BP 149/89
--- NOTE | 2018-08-17 03:16 | DS ---
CC: [facility]* DISCHARGE SUMMARY: DATE OF ADMISSION: 08/13/18 DATE OF DISCHARGE: 08/16/18 PRIMARY CARE PROVIDER: Blanca Ricardo DO PRINCIPAL DIAGNOSES: 1. Sepsis secondary to right-sided pyelonephritis secondary to pseudomonas. 2. Right obstructing ureteral stone, status post stent placement. SECONDARY DIAGNOSES: 1. Left nephrostomy tube secondary to obstructing left ureteral stone. 2. Iron deficiency anemia. 3. Past cerebrovascular accident. 4. Type 2 diabetes. DISCHARGE MEDICATIONS: 1. Triamcinolone cream applied topically t.i.d. to rash. 2. Sertraline 100 mg p.o. daily. 3. Ranitidine 300 mg q.h.s. 4. Metoprolol XL 25 mg p.o. q.h.s. 5. Melatonin 3 mg p.o. q.h.s. p.r.n. insomnia. 6. Lactase 3000 units p.o. b.i.d. 7. Lantus 5 units subcutaneous q.h.s. 8. Ferrous sulfate 325 mg p.o. daily. 9. Vitamin D3 5000 units p.o. monthly. 10. Lipitor 10 mg p.o. q.h.s. 11. Cipro 500 mg p.o. b.i.d. x20 doses. 12. Colace 200 mg p.o. daily p.r.n. constipation. 13. Railroad 5/325 one tab p.o. q.8 hours p.r.n. pain. 14. Tylenol 650 mg p.o. q.4 hours p.r.n. pain. 15. Benadryl 25 mg p.o. q.6 hours p.r.n. itching HOSPITAL COURSE: Mr. Robledo is a 58-year-old male whom I know from caring for him at [facility] who presented to the emergency room with complaints of fever. The patient was found to be septic likely secondary to a right-sided pyelonephritis. Additionally, the patient was found to have a right obstructing ureteral stone. He was seen in consultation by Dr. Pizarro who took the patient to the operating room on 08/13/18 where a right ureteral stent was placed. The patient has subsequently done quite well. He was treated with IV meropenem. His white blood cell count normalized and the sepsis resolved. The patient did develop worsening anemia. He is chronically iron deficient anemic. However, his hemoglobin went from 8.6 on 08/13/18 to 6.8. He received 1 unit of packed red blood cells with improvement in his hemoglobin to 7.9. At this point, it is felt the patient is stable for discharge back to [facility]. The patient is going to be switched from meropenem to ciprofloxacin as the pseudomonas is sensitive to Cipro. On the day of discharge, the patient is awake, alert, and oriented, sitting up in the chair, in no acute distress. His cardiac exam reveals normal S1, S2 with a regular rate and rhythm. There is a soft 2/6 systolic murmur heard best at the left upper sternal border. There is no lower extremity edema. His lungs are clear to auscultation bilaterally. His abdomen is soft, nontender, nondistended. Nephrostomy tube is present and draining clear urine. A Nielsen catheter is also present at this time. The patient is more engaged and conversant than I have ever seen him before. FOLLOWUP CONCERNS: The patient is being discharged to [facility] today, 08/16. Activity level is as tolerated. Diet is regular. Condition on discharge is stable. TIME SPENT: 35 minutes were spent discharging this patient. [id number]/[facility] #: [id number] JASMEET
== END 2018-08-16 17:00 | DRG 854 ==
LOC: ED 00:01 → SSU 09:59
PROVIDERS: ADMIT Internal Medicine; ATTEND Hospitalist
PROC: 0T768DZ Dilation of Right Ureter with Intraluminal Device, Via Natural or Artificial Opening Endoscopic (ICD-10-PCS; 2018-08-13)
PROC: BT1DYZZ Fluoroscopy of Right Kidney, Ureter and Bladder using Other Contrast (ICD-10-PCS; principal; 2018-08-13 18:30)
PROC: 30233N1 Transfusion of Nonautologous Red Blood Cells into Peripheral Vein, Percutaneous Approach (ICD-10-PCS; 2018-08-14)
DX: A41.52 Sepsis due to Pseudomonas (principal); G82.20 Paraplegia, unspecified; G11.9 Hereditary ataxia, unspecified; G93.40 Encephalopathy, unspecified; N39.0 Urinary tract infection, site not specified; N10 Acute pyelonephritis; N13.2 Hydronephrosis with renal and ureteral calculous obstruction; Z93.6 Other artificial openings of urinary tract status; I11.9 Hypertensive heart disease without heart failure; F03.90 Unspecified dementia, unspecified severity, without behavioral disturbance, psychotic disturbance, mood disturbance, and anxiety; D50.9 Iron deficiency anemia, unspecified; E11.9 Type 2 diabetes mellitus without complications; I25.10 Atherosclerotic heart disease of native coronary artery without angina pectoris; Q05.9 Spina bifida, unspecified; E78.5 Hyperlipidemia, unspecified; B96.5 Pseudomonas (aeruginosa) (mallei) (pseudomallei) as the cause of diseases classified elsewhere; Z66 Do not resuscitate; D63.8 Anemia in other chronic diseases classified elsewhere; Z86.73 Personal history of transient ischemic attack (TIA), and cerebral infarction without residual deficits; Z85.038 Personal history of other malignant neoplasm of large intestine; Z88.0 Allergy status to penicillin; Z88.8 Allergy status to other drugs, medicaments and biological substances
CPT/HCPCS: 36415; 71045; 74176; 74420; 80048; 80053; 81003; 81015; 83605; 85025; 85610; 85730; 86140; 86850; 86900; 86901; 86922; 87040; 87077; 87086; 87106; 87186; 87205; 99284; A9270-GY; J1100; J1650; J2185; J2270; J2405; J3010; J3370; J3480; P9040

== ENCOUNTER 2018-10-21 01:03 | Emergency (ER) | payer MEDICARE, MEDICAID ==
[2018-10-21] MEDS ORDERED: Acetaminophen SUPP* 650 MG SUPP PR ONE (02:14)
--- NOTE | 2018-10-21 02:14 | ED ---
HPI Febrile Illness - HPI Summary HPI Summary: Patient is a 58 y/o M presenting to ED from [facility] via ambulance with complaints of fever, dehydration. It is reported that patient refused lunch yesterday and had minimal fluids throughout the day. He was supposed to receive fluids at home, but he had pulled out his IV and as a result he was sent to ED to receive fluids. Report received from [facility] states that patient received Tylenol at 1100 yesterday. Patient is nonverbal in the room, level 5 caveat. He is noted to appear to be bed-bound and slightly contracted. He has cushions on both feet. He has nephrostomy tube and indwelling fever. Nephrostomy tube is reported to have been placed recently at [facility] due to kidney stone, hydronephrosis. Urine is noted to be leaking out around the sanchez, there was around 650 ml of dark jaylin urine in sanchez bag. He is a paraplegic due to spinal diffida. Patient is DNR, DNI. Home medications and allergies are reviewed. Level 5 caveat. - History of Current Complaint Chief Complaint: EDGeneral Time Seen by Provider: 10/21/18 01:50 Hx Obtained From: Patient Onset/Duration: Started Days Ago - refused to eat lunch yesterday, Still Present Timing: Constant, Lasting Days - refused to eat lunch yesterday Current Severity: None Pain Intensity: 0 Pain Scale Used: 0-10 Numeric Aggravating Factors: Nothing Alleviating Factors: Nothing Associated Signs and Symptoms: Other: - decreased PO intake, fever - Additional Pertinent History Primary Care Physician: [id number] - Allergy/Home Medications Allergies/Adverse Reactions: Allergies Allergy/AdvReac Type Severity Reaction Status Date / Time cefepime Allergy Intermediate Rash And Verified 10/21/18 01:23 Itching clindamycin Allergy Intermediate Unknown Verified 10/21/18 01:23 Reaction Details Penicillins Allergy Intermediate Unknown Verified 10/21/18 01:23 Reaction Details Home Medications: Home Medications Aspirin [Aspirin EC] 81 mg PO DAILY 10/21/18 [History Confirmed 10/21/18] Nitrofurantoin Macrocrystal [Nitrofurantoin] 100 mg PO BID 10/21/18 [History Confirmed 10/21/18] Ondansetron [Ondansetron Odt] 4 mg PO Q8H PRN 10/21/18 [History Confirmed ] Triamcinolone 0.1% CREAM(NF) [Kenalog Cream 0.1%(NF)] 1 top.gel TOPICAL SEE INSTRUCTIONS 10/21/18 [History Confirmed 10/21/18] PMH/Surg Hx/FS Hx/Imm Hx Endocrine/Hematology History: Reports: Hx Anticoagulant Therapy, Hx Diabetes Denies: Hx Thyroid Disease Cardiovascular History: Reports: Hx Coronary Artery Disease, Hx Hypercholesterolemia, Hx Hypertension, Other Cardiovascular Problems/Disorders - HYPERTENSION/CAD Denies: Hx Congestive Heart Failure, Hx Pacemaker/ICD Respiratory History: Denies: Hx Asthma, Hx Chronic Obstructive Pulmonary Disease (COPD), Other Respiratory Problems/Disorders GI History: Reports: Hx Gastroesophageal Reflux Disease History: Reports: Hx Kidney Stones, Other Problems/Disorders - left ureteral stent, "encrusted", hx MRSA urosepsis Denies: Hx Dialysis, Hx Renal Disease Musculoskeletal History: Reports: Hx Back Problems Sensory History: Reports: Other Sensory Impairments Denies: Hx Cataracts, Hx Contacts or Glasses, Hx Eye Injury, Hx Eye Prosthesis, Hx Glaucoma, Hx Legally Blind, Hx Macular Degeneration, Hx Vision Problem, Hx Deafness, Hx Hearing Aid, Hx Hearing Problem Opthamlomology History: Reports: Other Sensory Impairments Denies: Hx Cataracts, Hx Contacts or Glasses, Hx Eye Injury, Hx Eye Prosthesis, Hx Glaucoma, Hx Legally Blind, Hx Macular Degeneration, Hx Vision Problem Neurological History: Reports: Hx CVA, Hx Dementia, Hx Transient Ischemic Attacks (TIA) Denies: Hx Seizures Psychiatric History: Reports: Hx Anxiety, Hx Depression, Hx of Violent Episodes Against Others Denies: Hx Panic Disorder, Hx Substance Abuse - Cancer History Cancer Type, Location and Year: Colon CA - Surgical History Surgery Procedure, Year, and Place: pt declared "colon cancer and something on heart", appears to have port scar (this was in chart prior to 12/06/17). ureteral stent, [facility]. RLQ abdominal scar Infectious Disease History: Unable to Obtain/Confirm Infectious Disease History: Reports: Hx of Known/Suspected MRSA Denies: Hx Hepatitis, Hx Human Immunodeficiency Virus (HIV), Traveled Outside the [place] in Last 30 Days - Family History Known Family History: Positive: Respiratory Disease - pneumonia - Social History Alcohol Use: None Hx Substance Use: No Substance Use Type: Reports: None Hx Tobacco Use: Yes Smoking Status (MU): Former Smoker Review of Systems - ROS Summary Review of Systems Summary: level 5 caveat, nonverbal Constitutional: Other - POSITIVE - DEHYDRATION Positive: Fever Gastrointestinal: Other - POSITIVE - DECREASED APPETITE All Other Systems Reviewed And Are Negative: No - Comments Additional Review of Systems Comments: level 5 caveat, nonverbal Physical Exam - Summary Physical Exam Summary: VITAL SIGNS: Reviewed. GENERAL: Patient is a well-developed and nourished male who is lying comfortable in the stretcher. Patient is not in any acute respiratory distress. Waering boots on feet, nephrostomy tube on left side with no urine in bag, sanchez catheter with 600 cc urine in bag HEAD AND FACE: No signs of trauma. No ecchymosis, hematomas or skull depressions. No sinus tenderness. EYES: PERRLA, EOMI x 2, No injected conjunctiva, no nystagmus. EARS: Hearing grossly intact. Ear canals and tympanic membranes are within normal limits. MOUTH: Oropharynx within normal limits. NECK: Supple, trachea is midline, no adenopathy, no JVD, no carotid bruit, no c- spine tenderness, neck with full ROM. CHEST: Symmetric, no tenderness at palpation LUNGS: Bilateral rhonchi are noted. No wheezing or crackles. CVS: Regular rate and rhythm, S1 and S2 present, no murmurs or gallops appreciated. ABDOMEN: Soft, non-tender. No signs of distention. No rebound no guarding, and no masses palpated. Bowel sounds are normal. EXTREMITIES: FROM in all major joints, no edema, no cyanosis or clubbing. NEURO: Level 5 caveat, patient is responsive to loud verbal stimuli by opening eyes SKIN: Dry and warm Triage Information Reviewed: Yes Vital Signs On Initial Exam: Initial Vitals Temp Pulse Resp BP Pulse Ox 102.8 F 97 18 153/62 97 10/21/18 01:14 10/21/18 01:14 10/21/18 01:14 10/21/18 01:14 10/21/18 01:14 Vital Signs Reviewed: Yes Completion Of Physical Exam Limited Due To: Level 5 Procedures - Central Line Right Jugular Triple Lumen Central Venous Catheter Central Line Lumen: triple Central Line Procedure: betadine prep, sterile drapes applied, sterile dressing applied Central Line Position: internal jugular (R) Anesthesia: Lidocaine - 2% with epi cc's of anesthesia: 5 Complications: none Central Line Post Position: sutured, good blood return, position confirmed w/ CXR Diagnostics - Vital Signs Vital Signs Temp Pulse Resp BP Pulse Ox 10/21/18 01:14 102.8 F 97 18 153/62 97 - Laboratory Result Diagrams: 10/21/18 03:15 10/21/18 03:15 Lab Statement: Any lab studies that have been ordered have been reviewed, and results considered in the medical decision making process. - Radiology cxr Radiology Interpretation Completed By: ED Physician - CXR showed no acute infiltrate, right IJ triple lumen catheter with tape at distal SVC, pending official report - CT abd/pel ct CT Interpretation Completed By: Radiologist Summary of CT Findings: IMPRESSION: 1. The right internal urinary catheter has been pulled out with the proximal. loop located in the abdominal wall. The percutaneous nephrostomy tube has been. pulled out with the loop located in the abdominal wall. Moderate left-sided. hydronephrosis with perinephric stranding. Air is seen within the collecting. system the left kidney. Inflammatory changes around the proximal ureter. The. distal loop is located in the distal ureter. 2. The right internal ureteral catheter is appropriate position. Multiple. stones are located within the collecting system. Moderate right-sided. hydronephrosis with perinephric stranding. 3. Splenomegaly. 4. Nodular infiltrate located in the posterior aspect of the right lung. 5. Cholelithiasis. This report was reviewed by ED physician. Re-Evaluation - Re-Evaluation First Eval Re-Evaluation Time: 03:30 Comment: Several unsuccessful attempts were made to establish peripheral IV, central line will be done by . Course/Dx - Course Course Of Treatment: Patient is a 58 y/o M presenting to ED from [facility] via ambulance with complaints of fever, dehydration. It is reported that patient refused lunch yesterday and had minimal fluids throughout the day. He was supposed to receive fluids at home, but he had pulled out his IV and as a result he was sent to ED to receive fluids. Report received from [facility] states that patient received Tylenol at 1100 yesterday. Patient is nonverbal in the room, level 5 caveat. He is noted to appear to be bed-bound and slightly contracted. He has cushions on both feet. He has nephrostomy tube and indwelling fever. Nephrostomy tube is reported to have been placed recently at [facility] due to kidney stone, hydronephrosis. Urine is noted to be leaking out around the sanchez, there was around 650 ml of dark jaylin urine in sanchez bag. He is a paraplegic due to spinal diffida. Patient is DNR, DNI. Several unsuccessful attempts were made to establish peripheral IV, central line done. On physial exam, patient is responsive to loud verbal stimuli by opening eyes, wearing boots on feet, nephrostomy tube on left side with no urine in bag, sanchez catheter with 600 cc urine in bag. Bilateral rhonchi are noted. Right internal jugular triple lumen central venous catheter, betadine prep, sterile drapes applied, sterile dressing applied, lidocaine 2% with epi was used, 5 cc anesthesia, no complications, central line was sutured, good blood return, positions confirmed w/ CXR. CXR showed no acute infiltrate, right IJ triple lumen catheter with tape at distal SVC. Labs showed WBC 17.4, RBC 2.84, Hgb 7.6, Hct 24, RDW 20, MPV 7.3, INR 1.42, potassium 3.2, carbon dioxide 20, anion gap 13, glucose 153, lactic acid 1.2, calcium 8.2, AST 7, ALT 4, trop 0.12, CRP 184.14, albumin 2.9, globulin 4.2, albumin/globulin ratio 0.7. UA showed turbid appearance of urine, 2+ protein, 2+ ketones, positive nitrate, negative bilirubin and urobilinogen, 3+ leukocyte Esterase, 3+ WBC, RBC 3+, 2+ bacteria, yeast present, negative glucose. During ED course, patient received vancomycin HCl 1000 mg in sodium chloride 250 mls @ 166.667 mls /hr IVPB ED ONCE, fluids, Levaquin 750 mg Ivpremix 750 mg in 150 mls @ 100 mls/ hr IVPD ED ONCE, Tylenol [address] ABD/PEL IMPRESSION: 1. The right internal urinary catheter has been pulled out with the proximal. loop located in the abdominal wall. The percutaneous nephrostomy tube has been. pulled out with the loop located in the abdominal wall. Moderate left-sided. hydronephrosis with perinephric stranding. Air is seen within the collecting. system the left kidney. Inflammatory changes around the proximal ureter. The. distal loop is located in the distal ureter. 2. The right internal ureteral catheter is appropriate position. Multiple. stones are located within the collecting system. Moderate right-sided. hydronephrosis with perinephric stranding. 3. Splenomegaly. 4. Nodular infiltrate located in the posterior aspect of the right lung. 5. Cholelithiasis. 0542 - patient's case was discussed with Dr. Leos, Dr. Leos accepts for admission. - Diagnoses Provider Diagnoses: Malfunction of nephrostomy tube, Sepsis, UTI (urinary tract infection), Hydronephrosis - Provider Notifications Discussed Care Of Patient With: Muriel Leos Time Discussed With Above Provider: 05:42 Instructed by Provider To: Other - 0542 - patient's case was discussed with Dr. Leos, Dr. Leos accepts for admission. - Critical Care Time Critical Care Time: 30-74 min - 40 minutes CCT Discharge - Sign-Out/Discharge Documenting (check all that apply): Patient Departure - admit - Discharge Plan Condition: Good Disposition: ADMITTED TO [facility] Referrals: Néstor Mitchell MD [Primary Care Provider] - - Attestation Statements Document Initiated by Scribe: Yes Documenting Scribe: CHANG CHRISTINE Provider For Whom Scribe is Documenting (Include Credential): MAMADOU SHIPLEY MD Scribe Attestation: CHANG Ross , scribed for MAMADOU SHIPLEY MD on 10/21/18 at 0625. Status of Scribe Document: Ready
[2018-10-21] MEDS ORDERED: Vancomycin(*) 1,000 MG in NS 0.9% 250 ML* 250 ML IVPB ONE (02:15)
[2018-10-21] MEDS ORDERED: NS 0.9% 1000 ML** 2,400 ML IV ONE (02:15)
[2018-10-21] MEDS ORDERED: Levofloxacin 750 MG IVPREMIX(* 750 MG/150 ML BAG IVPB ONE (02:15)
[2018-10-21] MEDS ORDERED: Lidocaine 2% EPI 1:200000 MPF*10-20 ML VIAL ONE (02:35)
[2018-10-21 03:42] LABS: Activated Partial Thrombo Time 28.9 seconds (26.0-36.3); INR 1.42 (0.77-1.02)
[2018-10-21 03:44] LABS: Hematocrit 24 % (42-52); Hemoglobin 7.6 g/dl (14.0-18.0); Mean Corpuscular HGB Conc 32 g/dl (31-36); Mean Corpuscular Hemoglobin 27 pg (27-31); Mean Corpuscular Volume 83 fL (80-94); Red Blood Count 2.84 10^6/ul (4.00-5.40); Red Cell Distribution Width 20 % (10.5-15); White Blood Count 17.4 10^3/ul (3.5-10.8)
[2018-10-21 03:45] LABS: Albumin 2.9 g/dL (3.2-5.2); Albumin/Globulin Ratio 0.7 (1-3); BUN/Creatinine Ratio 15.2 (8-20); C Reactive Protein 184.14 mg/L (<8.01); Calcium 8.2 mg/dL (8.6-10.3); EGFR African American 101.5 (>60); EGFR Non-African American 83.9 (>60); Globulin 4.2 g/dL (2-4); Potassium 3.2 mmol/L (3.5-5.0); Total Bilirubin 0.6 mg/dL (0.2-1.0); Total Protein 7.1 g/dL (6.4-8.9)
[2018-10-21 03:51] LABS: Troponin I 0.12 ng/mL (<0.04)
[2018-10-21 03:56] LABS: Mean Platelet Volume 7.3 fL (7.4-10.4); Platelet Count 231 10^3/ul (150-450)
[2018-10-21] MEDS ORDERED: KCL 10 MEQ/50 ML IVPREMIX* 10 MEQ/50 ML BAG IV ONE (04:10)
[2018-10-21] MEDS ORDERED: HYDROcodone/ACETAMIN 5-325 MG* 1 TAB PO PRN (05:42)
[2018-10-21] MEDS ORDERED: Melatonin 3 MG TAB PO PRN (05:42)
[2018-10-21] MEDS ORDERED: Ondansetron ODT TAB* 4 MG PO PRN (05:42)
[2018-10-21] MEDS ORDERED: TRIAMCINOLONE 0.1% TOPICAL SCH (05:45)
[2018-10-21 05:49] LABS: Urine Appearance Turbid; Urine Bacteria 2+ (Absent); Urine Bilirubin Negative (Negative); Urine Blood 2+ (Negative); Urine Color Yellow; Urine Glucose Negative (Negative); Urine Ketones 1+ (Negative); Urine Nitrite Positive (Negative); Urine Protein 2+(100 mg/dL) (Negative); Urine Red Blood Cell 3+(>10/hpf) (Absent); Urine Urobilinogen Negative (Negative); Urine White Blood Cell 3+(>20/hpf) (Absent)
[2018-10-21] MEDS ORDERED: Acetaminophen SUPP* 325 MG SUPP PR ONE (05:52)
[2018-10-21] MEDS ORDERED: Acetaminophen SUPP* 650 MG SUPP ONE (05:54)
[2018-10-21] MEDS ORDERED: Acetaminophen SUPP* 325 MG SUPP PR PRN (05:59)
[2018-10-21] MEDS ORDERED: Insulin LISPRO* 1 UNITS UNIT SUBCUT SCH (06:00)
[2018-10-21] MEDS ORDERED: Dextrose 50% Syringe 50 ML* 25 GM/50 ML SYRINGE IV PUSH PRN (06:00)
[2018-10-21] MEDS ORDERED: NS 0.9% 1000 ML** 1,000 ML IV SCH ×2 (06:00→06:15)
[2018-10-21] MEDS ORDERED: Morphine VIAL* 10 MG/ML 1 ML VIAL IV PRN (06:11)
[2018-10-21] MEDS ORDERED: Ibuprofen PED LIQ 100 MG/5 ML UDC PO ONE (07:54)
--- NOTE | 2018-10-21 08:00 | ED ---
Progress - Progress Note Progress Note: Pt was signed out from Dr. Christopher to Dr. Leos, who accepted for admission. Pt was never admitted to the hospital, as he did not leave the ED. At 7:30 Dr. Pizarro consulted with the pt, and believes he cannot take proper care of the pt here and would like him to be transferred to [facility] for a nephrostomy tube replacement. Appearance: Well appearing, no pain distress Skin: hot, dry, reflects adequate perfusion Head/face: normal Eyes: EOMI, JACKIE ENT: mucous membranes moist Neck: supple, non-tender Respiratory: CTA, breath sounds present Cardiovascular: RRR, pulses symmetrical Abdomen: non-tender, soft, left-sided nephrostomy tube, non-draining Nielsen catheter with sediment in bag Bowel Sounds: present Musculoskeletal: normal, strength/ROM intact Neuro: normal, sensory motor intact, A&Ox3 - EKG/XRAY/CT EKG: NSR - 89 bpm, LBBB, nonspecific ST T wave chg Comments: 7:54 LAD Re-Evaluation - Re-Evaluation First Eval Re-Evaluation Time: 07:49 Change: Unchanged Comment: Pt's temperature is now 101 degrees F. Course/Dx - Course Course Of Treatment: Nurse's notes reviewed. Patient was admitted by the previous ER physician however the consulting urologist arrived in the ER and wished for the patient to be transferred. I went and evaluated the patient and arrange transfer at [facility]. Patient is improving here. He will need to have his nephrostomy/stent changed at this other facility as it cannot be performed here. - Diagnoses Provider Diagnoses: Malfunction of nephrostomy tube, Sepsis, UTI (urinary tract infection), Hydronephrosis - Provider Notifications Discussed Care Of Patient With: Eduardo Pizarro Time Discussed With Above Provider: 07:30 Instructed by Provider To: Other - Dr. Pizarro is consulting pt is the ED, and believes the pt should be transferred to [facility]. At 8:[address] Clark at [facility], who accepts pt for admission. - Critical Care Time Critical Care Time: 30-74 min - CCT is EXCLUSIVE of separately billable procedures. Discharge - Sign-Out/Discharge Documenting (check all that apply): Patient Departure - Transfer Patient Received Moderate/Deep Sedation with Procedure: No - Discharge Plan Condition: Fair Disposition: TRANS HIGHER LVL OF CARE FAC Referrals: Néstor Mitchell MD [Primary Care Provider] - - Billing Disposition and Condition Condition: FAIR Disposition: Trans Higher Lvl of Care Fac - Attestation Statements Document Initiated by Aretha: Yes Documenting Scribe: Yolanda Munguia Provider For Whom Aretha is Documenting (Include Credential): Darshan Alvarez MD Scribe Attestation: Yolanda Ross, scribed for Darshan Alvarez MD on 10/21/18 at 1328. Scribe Documentation Reviewed: Yes Provider Attestation: The documentation as recorded by the Yolanda pedroza accurately reflects the service I personally performed and the decisions made by , Darshan Alvarez MD Status of Scribe Document: Viewed
[2018-10-21] MEDS ORDERED: Docusate CAP* 100 MG PO SCH (09:00)
[2018-10-21] MEDS ORDERED: Sertraline* 100 MG TAB PO SCH (09:00)
[2018-10-21] MEDS ORDERED: Aspirin EC TAB* 81 MG TAB.EC PO SCH (09:00)
[2018-10-21] MEDS ORDERED: Heparin VIAL(*) 5000 UNITS/ML VIAL (FIVE THOUSAND) SUBCUT SCH (09:00)
--- NOTE | 2018-10-21 09:07 | HP ---
CC: Dr. Blanca Ricardo, Mian Moreno; Dr. Pizarro HISTORY AND PHYSICAL: DATE OF ADMISSION: 10/21/18 PRIMARY CARE PROVIDER: Mian Moreno, Dr. Blanca Ricardo. UROLOGIST: Dr. Pizarro. CHIEF COMPLAINT: Fever and dehydration. HISTORY OF PRESENT ILLNESS: This is a 58-year-old male with past medical history of colon cancer, iron deficiency anemia, kidney stone who most recently in August 2018 ended up having right-sided hydronephrosis with kidney stone, status post right nephrostomy tube placement. Patient was brought in by EMS because the care home facility was concerned that the patient was having fever as well as dehydration. Currently, due to dehydration as well as chronic medical issues, patient cannot give full history to me; he is not answering any questions meaningfully. He keeps on saying, "Get out of here, get out of here," so he cannot give me full history. Of note, in the [facility], they have mentioned that the patient has had decreased output at the right nephrostomy tube as well as decreased output at the Nielsen. Patient has an indwelling Nielsen catheter as well as a right nephrostomy tube. PAST MEDICAL HISTORY: 1. History of left kidney staghorn calculus, status post left nephrostomy, status post removal. 2. Right kidney stone, status post nephrostomy tube placement. 3. Colon cancer. 4. Iron deficiency anemia. 5. Stroke. 6. Type 2 diabetes. 7. Hypertension. 8. Coronary artery disease. 9. Paraplegia secondary to spina bifida. 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 11. Hyperlipidemia. 12. Cognitive impairment. HOME MEDICATIONS: Include: 1. Aspirin 81 mg. 2. Vitamin D3 at 5000 units monthly. 3. Triamcinolone cream 1 topical gel. 4. Ondansetron 4 mg every 8 hours as needed. 5. Hydrocodone/Tylenol 1 tablet every 8 hours as needed. 6. Nitrofurantoin 100 mg b.i.d. 7. Lactase 3000 units b.i.d. 8. Colace 200 mg twice a day. 9. Tylenol 1000 mg b.i.d. 10. Sertraline 100 mg daily. 11. Ranitidine 300 mg at bedtime. 12. Metoprolol succinate 25 mg in the morning. 13. Melatonin 3 mg at bedtime as needed. 14. Ferrous sulfate 325 mg at bedtime. 15. Atorvastatin 10 mg at bedtime. Of note, patient has been designated as type 2 diabetic, in the past was noted to take Lantus; however, according to the [facility], patient is not on Lantus anymore. ALLERGIES: Include CEFEPIME, CLINDAMYCIN, PENICILLIN. FAMILY HISTORY: Cannot be obtained. SOCIAL HISTORY: Cannot be obtained. Per the records, patient lives at [facility], is a do not resuscitate. His decision maker has been designated as Keily Robledo, who is also a resident at [facility]. REVIEW OF SYSTEMS: Cannot be obtained as patient does not give history. PHYSICAL EXAMINATION GENERAL: This is a well-developed male, lying on an ER stretcher, in no acute distress, somewhat contracted appearing. VITAL SIGNS: Temperature of 102.8, Heart rate of 83, pulse ox of 97% on 2 L nasal cannula, respiratory rate of 16, blood pressure 152/58. HEENT: Pupils are equal, round, and reactive to light. Atraumatic. Oral mucosa is dry. LUNGS: There is no tachypnea, no use of accessory muscles. Lungs are clear with no wheezing, rales, or rhonchi. HEART: There is no chest wall tenderness, regular rate and rhythm. ABDOMEN: Bowel sounds are normoactive in all 4 quadrants. Abdomen is soft. Right nephrostomy tube noted, is not draining any urine. Nielsen catheter is in place, draining dark-colored urine. There is no tenderness , no rigidity or guarding. EXTREMITIES: There is no lower extremity edema, no calf tenderness. NEUROLOGIC: Cannot be fully assessed as patient is not following any commands. SKIN: Poor skin turgor. DIAGNOSTIC STUDIES/LAB DATA: Labs: White count of 17.4, hemoglobin of 7.6, platelets of 231. INR of 1.42. Potassium of 3.2, chloride of 20, anion gap of 13, BUN 14, creatinine of 0.92. Troponin of 0.12. Albumin of 2.9. Patient underwent a chest x-ray, which does not show any acute pathology as per me; official read is pending. CT of the abdomen and pelvis revealed the right urinary catheter has been pulled out with the proximal loop located in the abdominal wall. The percutaneous nephrostomy tube has been pulled out with loops located in the abdominal wall, moderate left-sided hydronephrosis with perinephric stranding areas seen within the collecting system of the left kidney. Inflammatory changes of the proximal ureter. The right internal ureteral catheter is in appropriate position, multiple stones are located within the collecting system, moderate right-sided hydronephrosis with perinephric stranding. Splenomegaly. Nodular infiltrates located in the posterior aspect of the right lung. Cholelithiasis. IMPRESSION AND PLAN: 1. Bilateral hydronephrosis with possible pyelonephritis: At this point, urinalysis has been sent, results are pending. Patient's right nephrostomy tube is not draining any urine. I will start the patient on IV fluids as patient appears dehydrated, start the patient on IV meropenem for possible urinary tract infection/pyelonephritis. . Patient was seen by Dr. Pizarro during last admission. Urology consultation. 2. Dehydration: Continue IV fluids. 3. Hypokalemia: Repletion has been ordered. 4. History of diabetes; however, currently, per [facility] records not on insulin: I will start the patient on sliding scale insulin. Currently, the patient will be made n.p.o. as he is not able to follow commands. 5. History of spina bifida. 6. History of cognitive developmental issue: Continue supportive care. 7. History of colon cancer. 8. History of cerebrovascular accident: Continue aspirin. 9. History of hypertension, history of coronary artery disease: Continue other home medications. At this point, I have resumed patient's home medication , but made patient n.p.o. as he is not following any commands. Once the patient is more awake and following commands, we can restart giving him his home medications. 10. Code status: Patient is currently do not resuscitate. MOLST form is in the paper chart. [id number] #: [id number] MTDD
[2018-10-21] MEDS ORDERED: Meropenem 1 GM PREMIX(*) 1 GM/50 ML BAG IV SCH (14:00)
[2018-10-21 14:28] VITALS: BP 145/74
[2018-10-21] MEDS ORDERED: Ferrous Sulfate TAB* 325 MG PO SCH (18:00)
[2018-10-21] MEDS ORDERED: Metoprolol Succinate XL TAB* 25 MG PO SCH (18:00)
[2018-10-21] MEDS ORDERED: Famotidine TAB* 20 MG PO SCH (21:00)
[2018-10-21] MEDS ORDERED: LACTASE 3000 UNIT PO SCH (21:00)
[2018-10-21] MEDS ORDERED: Atorvastatin* 10 MG TAB PO SCH (21:00)
--- NOTE | 2018-10-22 00:44 | PN ---
Progress Note - Progress Note Date of Service: 10/22/18 Note: blood culture positive for gram neg bacilli. patient transferred to [facility]. had jaylin fax info to [facility].
--- NOTE | 2018-10-22 09:38 | PN ---
Progress Note - Progress Note Date of Service: 10/20/18 Note: Received call from lab at 9:30 AM Gram-negative bacilli blood culture, positive for pseudomonas aeruginosa Patient was transferred to [facility] Have asked abelardo Dc clerk to fax over information to [facility]
== END 2018-10-21 14:28 | disposition short-term general hospital (02) ==
LOC: ED 01:03
DX: A41.9 Sepsis, unspecified organism (principal); T83.092A Other mechanical complication of nephrostomy catheter, initial encounter; N39.0 Urinary tract infection, site not specified; E86.0 Dehydration; Z79.01 Long term (current) use of anticoagulants; I25.10 Atherosclerotic heart disease of native coronary artery without angina pectoris; I10 Essential (primary) hypertension; Z87.442 Personal history of urinary calculi; Z87.891 Personal history of nicotine dependence; Z85.038 Personal history of other malignant neoplasm of large intestine; N13.30 Unspecified hydronephrosis; Z88.0 Allergy status to penicillin; Z79.82 Long term (current) use of aspirin; E11.9 Type 2 diabetes mellitus without complications
CPT/HCPCS: 36415; 36569; 71045; 74176; 80053; 81003; 81015; 83605; 84484; 85025; 85610; 85730; 86140; 87040; 87077; 87086; 87150; 87186; 87205; 93005; 96361; 96365; 96366; 99285; A9270-GY; J3370; J3480

== ENCOUNTER 2023-04-11 23:43 | Inpatient (IN) ==
[2023-04-12 00:05] LABS: Urine Appearance Cloudy; Urine Bilirubin Negative (Negative); Urine Blood Negative (Negative); Urine Color Amber; Urine Glucose Negative (Negative); Urine Ketones Negative (Negative); Urine Nitrite Negative (Negative); Urine Protein 1+(30 mg/dL) (Negative); Urine Specific Gravity 1.033 (1.002-1.030); Urine Urobilinogen Negative (Negative)
[2023-04-12 00:19] LABS: Urine Amorphous Crystals Present (Absent); Urine Bacteria 1+ (Absent); Urine Red Blood Cell Absent (Absent); Urine Squamous Epithelial Cell Present (Absent); Urine White Blood Cell 1+(6-10/hpf) (Absent); Urine Yeast Present (Absent)
[2023-04-12 04:38] LABS: ABS Eosinophils 0.2 10^3/uL (0.0-0.5); ABS Lymphocytes 0.5 10^3/uL (1.0-4.8); ABS Monocytes 0.2 10^3/uL (0.0-1.1); ABS Neutrophils 10.3 10^3/uL (1.5-7.6); Hematocrit 37.5 % (38-53); Lymphocyte % 4.7 %; Mean Corpuscular Hemoglobin 30.2 pg (27-33); Mean Corpuscular Hgb Conc 34.5 g/dL (31-36); Mean Corpuscular Volume 87.5 fL (80-97); Platelet Count 244 10^3/uL (150-450); Red Blood Count 4.29 10^6/uL (4.06-5.63); White Blood Count 11.3 10^3/uL (3.6-10.2)
[2023-04-12 04:54] LABS: Albumin/Globulin Ratio 0.8 (1-3); C Reactive Protein 274.13 mg/L (<8.01); Calcium 8.2 mg/dL (8.6-10.3); Creatinine, Serum 1.43 mg/dL (0.67-1.17); Globulin 3.6 g/dL (2-4); Total Bilirubin 0.5 mg/dL (0.2-1.0); Total Protein 6.6 g/dL (6.4-8.9); eGFR CKD-EPI 54.7 (>60)
[2023-04-12] MEDS ORDERED: Iodixanol (CONTRAST) 320 MG/ML 100 ML SDV IV ONE (07:01)
[2023-04-12] MEDS ORDERED: Lactated Ringers 1000 ml BAG 1,000 ML IV ONE (07:12)
[2023-04-12] MEDS ORDERED: DOXYcycline 100 MG in NS 0.9% 250 ml 250 ML IVPB ONE (11:25)
[2023-04-12] MEDS ORDERED: cefTRIAXone 1 gm/50 mL D5W 1 GM/50 ML BAG IV ONE (11:25)
[2023-04-12 12:36] LABS: Magnesium 2.3 mg/dL (1.9-2.7)
[2023-04-12] MEDS ORDERED: NS 0.9% 1000 ml BAG 1,000 ML IV ONE (12:51)
[2023-04-12] MEDS ORDERED: Dexamethasone IV 4 MG/ML VIAL 1 ml VIAL IV SLOW PU ONE (12:51)
[2023-04-12] MEDS ORDERED: Sodium Phosphate ADULT ENEMA 133 ML BTL PR ONE (13:38)
[2023-04-12] MEDS ORDERED: NS 0.9% 1000 ml BAG 1,000 ML IV SCH (13:45)
[2023-04-12] MEDS ORDERED: Atropine 1% OPHTH.SOL 1 DROP BTL 2-5 ML BOTH EYES SCH (14:00)
[2023-04-12] MEDS: Heparin 5000 UNITS/ML 1 mL VIAL SUBCUT SCH ×2 (18:15→20:42)
[2023-04-12 20:07] LABS: Urine Appearance Clear; Urine Bilirubin Negative (Negative); Urine Blood Negative (Negative); Urine Color Yellow; Urine Glucose Negative (Negative); Urine Ketones Negative (Negative); Urine Nitrite Negative (Negative); Urine Protein Negative (Negative); Urine Specific Gravity 1.025 (1.002-1.030); Urine Urobilinogen Negative (Negative)
[2023-04-12] MEDS: Atropine 1% OPHTH.SOL 1 DROP BTL 2-5 ML SL SCH (20:41)
[2023-04-12] MEDS: Senna TAB 8.6 mg TAB PO SCH (20:42)
[2023-04-12] MEDS: DULoxetine DR 60 mg CAP PO SCH (20:42)
[2023-04-12] MEDS: Magnesium Hydroxide LIQ 30 ML UDC PO SCH (20:46)
[2023-04-13] MEDS: HYDROcodone/ACETAMIN 5/325 mg TAB PO PRN ×2 (01:56→12:44)
[2023-04-13] MEDS: DOXYcycline 100 MG in NS 0.9% 250 ml 250 ML IVPB SCH ×2 (05:39→16:30)
[2023-04-13] MEDS ORDERED: DOXYcycline 100 MG in NS 0.9% 250 ml 250 ML IVPB SCH (06:00)
[2023-04-13] MEDS: Heparin 5000 UNITS/ML 1 mL VIAL SUBCUT SCH ×3 (06:15→21:11)
[2023-04-13 06:49] LABS: ABS Lymphocytes 0.2 10^3/uL (1.0-4.8); ABS Monocytes 0.1 10^3/uL (0.0-1.1); Hematocrit 25.7 % (38-53); Hemoglobin 9.1 g/dL (13.2-16.3); Lymphocyte % 2.9 %; Mean Corpuscular Hgb Conc 35.4 g/dL (31-36); Mean Corpuscular Volume 87.5 fL (80-97); Mean Platelet Volume 7.3 fL (7.5-11.2); Platelet Count 182 10^3/uL (150-450); Red Blood Count 2.93 10^6/uL (4.06-5.63); Red Cell Distribution Width 16.1 % (12-17); White Blood Count 7.4 10^3/uL (3.6-10.2)
[2023-04-13 07:11] LABS: C Reactive Protein 141.25 mg/L (<8.01); Calcium 7.1 mg/dL (8.6-10.3); Creatinine, Serum 0.75 mg/dL (0.67-1.17); Magnesium 1.8 mg/dL (1.9-2.7); Potassium 3.5 mmol/L (3.5-5.0); eGFR CKD-EPI 100.8 (>60)
[2023-04-13] MEDS ORDERED: Magnesium Sulfate 2 gm BAG 2 GM/50 ML BAG IVPB ONE (07:56)
[2023-04-13] MEDS: Senna TAB 8.6 mg TAB PO SCH ×2 (11:01→20:40)
[2023-04-13] MEDS: Atropine 1% OPHTH.SOL 1 DROP BTL 2-5 ML SL SCH ×3 (11:02→20:40)
[2023-04-13] MEDS: Magnesium Hydroxide LIQ 30 ML UDC PO SCH ×2 (11:02→20:45)
[2023-04-13] MEDS ORDERED: cefTRIAXone 1 gm/50 mL D5W 1 GM/50 ML BAG IV SCH (13:00)
[2023-04-13] MEDS ORDERED: Potassium Chlor 20 meq TAB.ER PO ONE (15:49)
[2023-04-13] MEDS: DULoxetine DR 60 mg CAP PO SCH (20:40)
[2023-04-14] MEDS: Heparin 5000 UNITS/ML 1 mL VIAL SUBCUT SCH ×3 (06:12→22:52)
[2023-04-14] MEDS: DOXYcycline 100 MG in NS 0.9% 250 ml 250 ML IVPB SCH ×2 (06:12→17:18)
[2023-04-14 09:23] LABS: ABS Eosinophils 0.1 10^3/uL (0.0-0.5); ABS Lymphocytes 0.8 10^3/uL (1.0-4.8); ABS Monocytes 0.3 10^3/uL (0.0-1.1); ABS Neutrophils 5.1 10^3/uL (1.5-7.6); ABS Nucleated RBC 0.01 10^3/ul; Eosinophil % 1.7 %; Hematocrit 29.5 % (38-53); Hemoglobin 10.1 g/dL (13.2-16.3); Lymphocyte % 12.7 %; Mean Corpuscular Hemoglobin 30.6 pg (27-33); Mean Corpuscular Hgb Conc 34.4 g/dL (31-36); Mean Corpuscular Volume 89.1 fL (80-97); Mean Platelet Volume 6.9 fL (7.5-11.2); Nucleated Red Blood Cells % 0.1 /100 WBC (0.0-0.4); Platelet Count 188 10^3/uL (150-450); Red Blood Count 3.31 10^6/uL (4.06-5.63); Red Cell Distribution Width 15.9 % (12-17); White Blood Count 6.4 10^3/uL (3.6-10.2)
[2023-04-14 09:38] LABS: Calcium 7.4 mg/dL (8.6-10.3); Creatinine, Serum 0.75 mg/dL (0.67-1.17); Potassium 4.3 mmol/L (3.5-5.0); eGFR CKD-EPI 100.8 (>60)
[2023-04-14] MEDS: Atropine 1% OPHTH.SOL 1 DROP BTL 2-5 ML SL SCH ×3 (10:05→22:54)
[2023-04-14] MEDS: Senna TAB 8.6 mg TAB PO SCH ×2 (10:05→22:38)
[2023-04-14] MEDS: Magnesium Hydroxide LIQ 30 ML UDC PO SCH ×2 (10:05→22:43)
[2023-04-14] MEDS: HYDROcodone/ACETAMIN 5/325 mg TAB PO PRN (14:15)
[2023-04-14] MEDS: DULoxetine DR 60 mg CAP PO SCH (22:39)
[2023-04-15] MEDS: DOXYcycline 100 MG in NS 0.9% 250 ml 250 ML IVPB SCH (06:03)
[2023-04-15] MEDS: Heparin 5000 UNITS/ML 1 mL VIAL SUBCUT SCH (06:04)
[2023-04-15 06:17] LABS: ABS Eosinophils 0.1 10^3/uL (0.0-0.5); ABS Lymphocytes 1.1 10^3/uL (1.0-4.8); ABS Monocytes 0.2 10^3/uL (0.0-1.1); ABS Neutrophils 3.1 10^3/uL (1.5-7.6); Hematocrit 28.5 % (38-53); Hemoglobin 9.7 g/dL (13.2-16.3); Lymphocyte % 24.6 %; Mean Corpuscular Hemoglobin 30.2 pg (27-33); Mean Corpuscular Hgb Conc 34.2 g/dL (31-36); Mean Corpuscular Volume 88.2 fL (80-97); Platelet Count 179 10^3/uL (150-450); Red Blood Count 3.23 10^6/uL (4.06-5.63); Red Cell Distribution Width 15.6 % (12-17); White Blood Count 4.5 10^3/uL (3.6-10.2)
[2023-04-15 06:36] LABS: C Reactive Protein 30.59 mg/L (<8.01); Calcium 7.4 mg/dL (8.6-10.3); Creatinine, Serum 0.68 mg/dL (0.67-1.17); Potassium 4.3 mmol/L (3.5-5.0); eGFR CKD-EPI 103.8 (>60)
[2023-04-15] MEDS: Senna TAB 8.6 mg TAB PO SCH (09:19)
[2023-04-15] MEDS: Atropine 1% OPHTH.SOL 1 DROP BTL 2-5 ML SL SCH (09:19)
[2023-04-15] MEDS: Magnesium Hydroxide LIQ 30 ML UDC PO SCH (09:20)
[2023-04-15 13:57] VITALS: BP 126/68
== END 2023-04-15 14:55 | DRG 871 ==
LOC: EDHOLD 23:43 → ED 23:43 → SUATTDRO 04-12 12:29 → MED 04-12 14:06
PROVIDERS: ADMIT Internal Medicine; ATTEND Hospitalist